=== PATIENT | female | born 1945 | race Caucasian/White ===

== ENCOUNTER → 2018-02-05 15:28 | Outpatient (CLI) | payer MEDICARE, OTHER, SELFPAY ==
[2018-02-05 17:34] LABS: Amphetamine Urine VISTA NEGATIVE (<1000 ng/mL); Barbiturate Urine VISTA NEGATIVE (< 200 ng/mL); Benzodiazepine Urine VISTA NEGATIVE (< 200 ng/mL); Cocaine Urine VISTA NEGATIVE (< 300 ng/mL); Ecstacy Urine VISTA NEGATIVE (< 500 ng/mL); Methadone Urine VISTA NEGATIVE (< 300 ng/mL); PCP Urine VISTA NEGATIVE (< 25 ng/mL); THC Urine VISTA NEGATIVE (< 50 ng/mL); Vista UDS pH Range 6
== END ==
PROVIDERS: Family Provider Internal Medicine; PCP Internal Medicine; Visit Provider Anesthesiology Pain Medicine
DX: F11.20 Opioid dependence, uncomplicated (principal)
CPT/HCPCS: 80307

== ENCOUNTER → 2018-05-06 11:49 | Outpatient (CLI) | payer MEDICARE, OTHER, SELFPAY ==
--- NOTE | 2018-05-06 11:49 | DT_ITS ---
This patient was seen during an EMR downtime May 05, 2018 - May 12, 2018. This patient may have a combination of paper and electronic documentation or all paper documentation. All documentation is viewable within the e-chart portion of [facility] for each patient visit.
--- NOTE | 2018-05-06 12:00 | RAD_ITS ---
STUDY: X-RAY - PELVIS AND LEFT HIP REASON FOR EXAM: Female, 72 years old. Left hip pain TECHNIQUE: Radiological exam, hip, unilateral, with pelvis when performed; 2 or 3 views. COMPARISON: None. FINDINGS: There is a non-specific bowel gas pattern. Normal visualized soft tissue structures. There are atherosclerotic vascular calcifications. Total right hip arthroplasty. Degenerative findings in the lumbar spine. Normal bilateral iliac wings, sacroiliac joints and visualized sacrum. Normal bilateral superior and inferior pubic rami. Normal pubic symphysis. Normal bilateral ischial tuberosities. There are osteoarthritic changes of the femoral head with marginal osteophyte formation. There is osteoarthritic spur formation of the acetabular rim. There is moderate articular joint space narrowing of the hip. RAD/Hip 2-3 Views with Pelvis IMPRESSION: There are osteoarthritic changes of the femoral head with marginal osteophyte formation. Electronically Signed: Nav Gutiérrez MD at 20:49 EDT , Service support ,
== END ==
PROVIDERS: Family Provider Internal Medicine; PCP Internal Medicine; Visit Provider Anesthesiology Pain Medicine
DX: M16.12 Unilateral primary osteoarthritis, left hip (principal)
CPT/HCPCS: 73502

== ENCOUNTER → 2018-05-19 07:18 | Outpatient (CLI) | payer MEDICARE, OTHER, SELFPAY ==
--- NOTE | 2018-05-19 07:42 | MRI_ITS ---
STUDY: MRI LUMBAR SPINE WITHOUT CONTRAST REASON FOR EXAM: Female, 72 years old. Low back pain radiating to both legs TECHNIQUE: Standardized fat and water weighted pulse sequences were obtained in the sagittal and axial planes. COMPARISON: None FINDINGS: T12-L1: Normal endplates. Normal disc height, hydration and morphology. Normal bilateral facet joints. Normal central canal and bilateral lateral recesses. Normal bilateral intervertebral neural foramina. 6 mm of grade 1 L5-S1 anterolisthesis. No underlying pars defects are seen. There is a dextroscoliosis of the lumbar spine. Conus medullaris is low lying, with tip at the L3 level. L1-2: Bulging annulus and bilateral facet hypertrophy with mild left lateral recess stenosis and moderate left and mild right foraminal stenoses. L2-3: Bulging annulus and bilateral facet and ligamentum flavum hypertrophy with facet joint effusions. Mild central canal and moderate left and mild right foraminal stenoses. L3-4: Bulging annulus and bilateral facet and ligamentum flavum hypertrophy with mild bilateral lateral recess stenoses and mild bilateral foraminal stenoses. L4-5: Bulging annulus and bilateral facet and ligamentum flavum hypertrophy with minimal central canal stenosis and mild bilateral foraminal stenoses. L5-S1: Anterolisthesis, bulging annulus, and bilateral facet and ligamentum flavum hypertrophy with bilateral facet joint effusions. Mild bilateral lateral recess stenoses and severe right and moderate left foraminal stenoses. Incidental sacral Tarlov cysts. Normal visualized paraspinous soft tissue structures. MRI/Spine Lumbar (Routine) IMPRESSION: Multilevel degenerative disease as described. Grade 1 L5-S1 anterolisthesis. Low-lying conus medullaris. Severe right foraminal stenosis at the L5-S1 level. Electronically Signed: Eugene Boucher MD at 10:09 EDT Tel , Service support ,
== END ==
PROVIDERS: Family Provider Internal Medicine; PCP Internal Medicine; Visit Provider Anesthesiology Pain Medicine
DX: M48.07 Spinal stenosis, lumbosacral region (principal); M41.86 Other forms of scoliosis, lumbar region
CPT/HCPCS: 72148

== ENCOUNTER → 2018-07-30 16:35 | Outpatient (CLI) | payer MEDICARE, OTHER, SELFPAY | PROVIDERS: Family Provider Internal Medicine; PCP Internal Medicine; Visit Provider Anesthesiology Pain Medicine | DX: M47.896 Other spondylosis, lumbar region (principal); M51.36 Other intervertebral disc degeneration, lumbar region; M48.061 Spinal stenosis, lumbar region without neurogenic claudication | CPT/HCPCS: 72100 ==

== ENCOUNTER 2018-08-02 11:56 | Emergency (ER) | payer MEDICARE, OTHER, SELFPAY ==
[2018-08-02 11:56] VITALS: BP 173/91; PULSE 69; RESP 18; TEMP 36.6; O2SAT 99; BMI 27.1
[2018-08-02] MEDS: HYDROmorphone 1 MG/ML Syringe IM (12:59)
--- NOTE | 2018-08-02 13:56 | ED.VISSUMM ---
- ER Visit Summary Date of Service: 08/02/18 Chief Complaint: [Back pain and right leg pain] History of Present Illness: The patient is a 72 F [presents the emergency department complaint of pain in her back and going down her right leg that has been there for over 3 weeks. Patient states she scheduled to have hip replacement surgery on August [address] Irene on the left hip. Patient states that she was power washing 3 weeks ago unless to her back. Patient had x-rays earlier this week done as an outpatient of her low back showed some arthritic changes. Patient is currently in pain management and sees Dr. Orta. Patient has been taking ibuprofen at home as well as Vicodin but is just not managing her pain] patient denies any direct trauma. She denies any weakness in extremities. She denies change in bowel or bladder function. Physical Examination: [HEENT-PERRLA, EOMI. Cranial nerves II through XII grossly intact. TMs clear. Mucous membranes moist. No adenopathy. Cardiovascular-regular rate and rhythm without murmur or ectopy Lungs-clear to auscultation, chest wall stable without crepitus or subcu emphysema Abdomen-normoactive bowel sounds, soft, nontender, no rebound or rigidity, no peritoneal signs. Back exam-patient has diffuse tenderness over the lumbar sacral spine and paraspinal musculature. Patient has negative straight leg raises. Deep tendon reflexes are plus out of 4 bilaterally at the patella and Achilles. Patient has normal L5 extension. Normal sensation to light touch. Extremities-intact ?4, normal range of motion, normal pulses, atraumatic] Test Results: [None indicated] Emergency Department Course and Treatment: [Patient had a dose of Dilaudid 1 mg IM given she had good pain relief with that. Patient was offered admission for pain control however she states that she does not want to be admitted and would prefer to go home and follow-up with . I did discuss case with her pain management doctor who asked that we start patient on the Butrans patch.] Treatment Plan: [Butrans patch] Disposition: [Discharged home in stable condition] Impression: [Back pain Sciatica This note was generated with [employer] dictation software. It may contain incorrect words, spelling, and punctuation that were not noted in review of the chart prior to signing ED Disposition - Plan for ED Patient: Chief Complaint: Back Referrals: Destini Bustamante MD [Primary Care Provider] -
--- NOTE | 2018-08-02 13:59 | ED.DEP ---
ED Disposition - Plan for ED Patient: Chief Complaint: Back Instructions: ED Neck Back Pain General, ED Sciatica Prescriptions: Buprenorphine [Butrans 5 Mcg/Hr] 1 ea TD QWEEK #7 patch.tdwk Referrals: Destini Bustamante MD [Primary Care Provider] - Yun Orta MD [STAFF PHYSICIAN] - 3-5 Days
== END 2018-08-02 14:47 | disposition home or self-care (01) ==
LOC: ED 13:06
PROVIDERS: Emergency Provider Emergency Medicine; Family Provider Internal Medicine; PCP Internal Medicine
DX: M54.41 Lumbago with sciatica, right side (principal); G89.29 Other chronic pain; I10 Essential (primary) hypertension; J44.9 Chronic obstructive pulmonary disease, unspecified; Z79.891 Long term (current) use of opiate analgesic; Z79.899 Other long term (current) drug therapy; Z72.0 Tobacco use
CPT/HCPCS: 96372; 99282

== ENCOUNTER 2018-08-03 11:55 | Emergency (ER) | payer MEDICARE, OTHER, SELFPAY ==
[2018-08-03 11:56] VITALS: BP 156/79; PULSE 76; RESP 20; TEMP 37; O2SAT 97; BMI 27.1
[2018-08-03] MEDS: HYDROmorphone 1 MG/ML Syringe IM (12:30)
[2018-08-03] MEDS: Triamcinolone Acetonide 40 MG/ML Vial IM (12:30)
[2018-08-03] MEDS: diazePAM 5 MG Tablet PO (12:30)
--- NOTE | 2018-08-03 13:26 | ED.VISSUMM ---
- ER Visit Summary Date of Service: 08/03/18 Chief Complaint: Back pain History of Present Illness: The patient is a 72 F with chronic recurrent back pain was seen yesterday and received a Butrans patch but it still does not help. She was offered admission but does not want it. She does not want to be admitted again today she just wants her pain relief. There is no new symptoms other than the pain is not getting any better. She is seeing pain management, she receives 3 Vicodin's a day from them. Physical Examination: Otherwise unremarkable exam. Soft and nontender abdomen. There is lumbar pain to palpation. There is some tenderness over the right IT band as well as left hip pain. Neurovascularly intact Emergency Department Course and Treatment: Patient improved with Dilaudid and Valium she wants to be discharged home. I certainly believe her pain but she is in pain management. Because it is Labor and her pain physician is not listed as being economics consultant I will give her a small amount of Valium and hydrocodone for home she is to call her physician first thing Saturday as well as document every time she takes the medication the time and her relief. She understands this. Disposition: Discharge stable condition Impression: Chronic recurrent back pain This note was generated with [employer] dictation software. It may contain incorrect words, spelling, and punctuation that were not noted in review of the chart prior to signing ED Disposition - Plan for ED Patient: Disposition: Home or Assisted Living Chief Complaint: Back Prescriptions: Diazepam [Valium] 5 mg PO Q6H PRN PRN 3 Days #10 tab PRN Reason: Pain Hydromorphone HCl [Dilaudid] 4 mg PO Q6H 3 Days #10 tab Additional Instructions: Call your pain doctor on Saturday to tell them you are on pain medications and the new pain medications that you are taking
[2018-08-03 13:47] VITALS: BP 127/89; PULSE 62; RESP 18; O2SAT 97
--- NOTE | 2018-08-03 13:47 | ED.RN ---
DR. NASH MADE AWARE THAT PATIENT IS IN PAIN MANAGEMENT AND IS OKAY WITH GOING HOME PRESCRIPTIONS. PT STATES SHE WILL CONTACT DR. OLIVEIRA ON SATURDAY TO DISCUSS FURTHER.
== END 2018-08-03 13:48 | disposition home or self-care (01) ==
PROVIDERS: Emergency Provider Emergency Medicine; Family Provider Internal Medicine; PCP Internal Medicine
DX: M54.5 Low back pain (principal); G89.29 Other chronic pain; J44.9 Chronic obstructive pulmonary disease, unspecified; Z79.899 Other long term (current) drug therapy
CPT/HCPCS: 96372; 99282

== ENCOUNTER 2018-08-22 10:45 | Outpatient (RCR) | payer MEDICARE, OTHER, SELFPAY ==
[2018-08-08 10:41] VITALS: BMI 27.1
--- NOTE | 2018-08-08 12:09 | PCM.WC.HP ---
(1) Cat scratch of right lower leg Status: Acute Current Visit: Yes Code(s): S80.811A - Abrasion, right lower leg, initial encounter; W55.03XA - Scratched by cat, initial encounter (2) Nonhealing ulcer of right lower leg Status: Acute Current Visit: Yes Code(s): L97.919 - Non-pressure chronic ulcer of unspecified part of right lower leg with unspecified severity (3) Infected ulcer of skin Status: Acute Current Visit: Yes Code(s): L98.499 - Non-pressure chronic ulcer of skin of other sites with unspecified severity; L08.9 - Local infection of the skin and subcutaneous tissue, unspecified History of Present Illness Date of Service: 08/08/18 Chief Complaint: Follow-up right lower leg ulcer nonhealing for about 3 weeks History of Wound: 72-year-old white female that has indoor outdoor cats. While in the barn of the cat indoor cat scratched her right lower leg. Her doctor put her on metronidazole which she is almost finished and used Bactroban ointment. The area is now scabbed with a darkened scab. A little tender around the edges but no purulent discharge noted. Past Medical History Past Medical History: Nonhealing ulcer right lower leg. Cat scratch of the right lower leg Allergies/Adverse Reactions: Allergies morphine Allergy (Verified 08/03/18 12:00) unknown Penicillins Allergy (Verified 08/03/18 12:00) unknown Home Medications: Ambulatory Orders Medication Instructions Recorded albuterol sulfate HFA 90 2 puff INHALATION Q6H PRN 06/17/18 mcg/actuation aerosol inhaler budesonide-formoterol HFA 160 2 puff INHALATION BID 06/17/18 mcg-4.5 mcg/actuation aerosol inhaler cholecalciferol (vitamin D3) 1,000 1,000 unit PO QDAY 06/17/18 unit capsule hydroxychloroquine 200 mg tablet 200 mg PO QDAY tab 06/17/18 losartan 50 mg tablet 50 mg PO QDAY 06/17/18 omeprazole 40 mg capsule,delayed 40 mg PO QDAY 06/17/18 release tiotropium bromide 2.5 2 puff INHALATION QDAY 06/17/18 mcg/actuation mist for inhalation Buprenorphine [Butrans 5 Mcg/Hr] 1 ea TD QWEEK #7 patch.tdwk 08/02/18 Hydromorphone HCl [Dilaudid] 4 mg PO Q6H 3 Days #10 tab 08/03/18 Hydrocodone/Acetaminophen [[place] 1 each PO TID 08/08/18 5-325 Tablet] Hydroxychloroquine Sulfate 200 mg PO DAILY MDD 1.5 tabs 08/08/18 [Plaquenil] Lives: Spouse/ Significant Other Smoking Status: Current every day smoker Alcohol: None Drugs: None Review of Systems Constitutional: Denies: Chills, Fever Eyes: Denies: Blurred vision, Drainage, Pain HEENT: Denies: Difficulty Hearing, Difficulty Swallowing, Sore Throat, Visual Changes Cardiovascular: Denies: Chest Pain, Palpitations, Syncope Respiratory: Denies: Cough, Shortness of Breath Gastrointestinal: Denies: Abdominal Pain, Nausea, Vomiting Genitourinary: Denies: Dysuria, Frequency Musculoskeletal: Denies: Joint Pain, Muscle pain Skin: Reports: Wounds - Right lower leg ulcer nonhealing from a cat scratch. Denies: Jaundice, Rash Neurological: Denies: Balance problems, Change in Speech, Difficulty swallowing, Focal weakness Psychiatric: Denies: Anxiety, Depression Endocrine: Denies: Change in Body Habitus Hematologic/ Lymphatic: Denies: Adenopathy - Physical Exam General: Oriented x3, Cooperative, Well developed HEENT: Atraumatic, PERRLA Oral: Moist Mucosa Neck: Supple, No JVD Lungs: Clear to auscultation, Normal air movement Cardiovascular: Regular rate, Regular Rhythm Abdomen: Bowel Sounds Present, Soft, Non Tender, No Hepato-splenomegaly Extremities: No clubbing, No edema, - - Lower leg ulcer from a cat scratch traumatic Wound Measurements and Assessment - Nurse 1 - General Ulcer Measurement Start: 08/08/18 10:21 Freq: Status: Active Protocol: Activity Type Activity Date Activity User E-Sign Co-Sign Detail Recorded Client Recorded Date Recorded By Document 08/08/18 10:41 [id number] 08/08/18 10:48 08/08/18 10:41 Wound Center Nurse 1 [Ulcer Assessment] #1 RLE LATERAL ULCER -Combined with other wound No -Current Size (cm) - Length 1.9 -Current Size (cm) - Width 1.4 -Current Size (cm) - Depth 0.1 -Total Square Cm 2.66 -Date of Last Picture (Recall this 08/08/18 field) -Photo Taken Yes -Epithelialization None Present -Exudate Amt None Present (0 %) -Wound Margin Distinct, Outline Attached -Granulation Amt None Present (0 %) -Granulation Quality N/A -Necrotic Tissue Type Eschar -Texture (Fe-wound Skin Appearance) Assessed -Moisture (Fe-wound Skin Appearance Assessed ) -Color (Fe-wound Skin Appearance) Assessed -Temperature (Fe-wound Skin No Abnormality Appearance) (Pt Warm) -Tenderness on Palpation (Fe-wound No Skin Appearance) -Ulcer Cleansing Rinsed/ Irrigated with Saline -Foul Odor after Cleansing No -Anesthetic Used 4% Lidocaine Solution [Edema Assessment] -Lower Limb Edema Present No -Right Calf (cm) 31 -Right Ankle (cm) 21 -Left Calf (cm) 30 -Left Ankle (cm) 21 WC - Nurse 2 - General Ulcer CM Notes Start: 08/08/18 10:21 Freq: Status: Active Protocol: Activity Type Activity Date Activity User E-Sign Co-Sign Detail Recorded Client Recorded Date Recorded By Document 08/08/18 11:06 MW [id number] 08/08/18 11:13 MW 08/08/18 11:06 Wound Center Nurse 2 [Procedure/Treatment] #1 RLE LATERAL ULCER -Time 11:06 -Correct Patient Yes -Correct Side, Site, Position Yes -Correct Procedure Yes -Procedure Performed Yes -Type of Procedure Debridement -Clinical Debridement Subcutaneous -Post Debridement Size (cm) - Length 2.0 -Post Debridement Size (cm) - Width 1.4 -Post Debridement Size (cm) - Depth 0.2 -Total Square Cm 2.80 -Wound/Ulcer Outcome Not Healed -Ulcer Cleansing Rinsed/ Irrigated with Saline -Foul Odor after Cleansing No -Bioengineered Tissue No -Bleeding Controlled with Pressure -Treatment Response Procedure Tolerated Well [See Physician Procedure note for Specifics] Pain Scale: 0-10 Numeric [Pain] -Is Patient Pain Free? Yes Musculoskeletal: No Tenderness to Palpation of Joints or Extremities Lymphatic: No Cervical, Supraclavicular, or Inguinal Adenopathy Neurological: Cranial nerves II-XII grossly intact, Neuro grossly intact Psych/Mental Status: Normal Affect, Appropriate Debridement Note Post-Debridement Measurements/Treatment WC - Nurse 2 - General Ulcer CM Notes Start: 08/08/18 10:21 Freq: Status: Active Protocol: Activity Type Activity Date Activity User E-Sign Co-Sign Detail Recorded Client Recorded Date Recorded By Document 08/08/18 11:06 MW [id number] 08/08/18 11:13 MW 08/08/18 11:06 Wound Center Nurse 2 #1 RLE LATERAL ULCER -Time 11:06 -Correct Patient Yes -Correct Side, Site, Position Yes -Correct Procedure Yes -Procedure Performed Yes -Type of Procedure Debridement -Clinical Debridement Subcutaneous -Post Debridement Size (cm) - Length 2.0 -Post Debridement Size (cm) - Width 1.4 -Post Debridement Size (cm) - Depth 0.2 -Total Square Cm 2.80 -Wound/Ulcer Outcome Not Healed -Ulcer Cleansing Rinsed/ Irrigated with Saline -Foul Odor after Cleansing No -Bioengineered Tissue No -Bleeding Controlled with Pressure -Treatment Response Procedure Tolerated Well Pain Scale: 0-10 Numeric Is Patient Pain Free? Yes Wound debrided: Lower leg ulcer Type of Debridement: Excisional debridement Anesthesia Used: 5% Lidocaine Gel Depth: Down to and including healthy tissue, in the subcutaneous layer, to muscle Percentage of wound debrided: 100 Instrument Used: 5mm curette Tissue Removed: Eschar and fibrin Amount of bleeding with debridement: Mild Bleeding Controlled with: Compression and gauze Patient tolerated procedure well Assessment/Plan Active Problems Cat scratch of right lower leg (Acute) Nonhealing ulcer of right lower leg (Acute) Infected ulcer of skin (Acute) Assessment: Cat scratched right lower leg. Nonhealing ulcer right lower leg. Infected ulcer right lower leg Plan: Leg with Hibiclens. Apply Promogran every other day cover with Adaptic and gauze dressing Abisai and a single layer Tubigrip. Follow-up in 1 week
[2018-08-15 10:40] VITALS: BP 143/62; PULSE 73; RESP 18; TEMP 36.1; BMI 27.1
[2018-08-22 10:53] VITALS: BP 147/89; PULSE 81; RESP 18; TEMP 36.8; BMI 27.1
--- NOTE | 2018-08-22 12:38 | PCM.WC.PN ---
(1) Cat scratch of right lower leg Status: Acute Current Visit: Yes Code(s): S80.811A - Abrasion, right lower leg, initial encounter; W55.03XA - Scratched by cat, initial encounter (2) Infected puncture wound Status: Acute Current Visit: Yes Code(s): T14.8XXA - Other injury of unspecified body region, initial encounter; L08.9 - Local infection of the skin and subcutaneous tissue, unspecified (3) Nonhealing nonsurgical wound Status: Acute Current Visit: Yes Code(s): T14.8XXA - Other injury of unspecified body region, initial encounter Type of Wound Date of Service: 08/22/18 Chief Complaint: Follow-up right lower leg wound nonhealing for about 3 weeks History of Wound: 72-year-old white female that has indoor outdoor cats. While in the barn of the cat indoor cat scratched her right lower leg. Her doctor put her on metronidazole which she is almost finished and used Bactroban ointment. The area is now scabbed with a darkened scab. A little tender around the edges but no purulent discharge noted. Progress of Wound: Today the wound is much improved still open about half the size it was last week. Patient is scheduled for hip surgery this coming Saturday so we will see her back in 3 weeks. He is using Promogran which is appears to be developing new cell growth you can see new cells growing possibly she could be healed up by the time she comes back. - Physical Exam Vital Signs Temp Pulse Resp BP 98.2 F 81 18 147/89 H 08/22/18 10:53 08/22/18 10:53 08/22/18 10:53 08/22/18 10:53 General: Oriented x3, Cooperative, Well developed HEENT: Atraumatic, PERRLA Oral: Moist Mucosa Neck: Supple, No JVD Lungs: Clear to auscultation, Normal air movement Cardiovascular: Regular rate, Regular Rhythm Abdomen: Bowel Sounds Present, Soft, Non Tender, No Hepato-splenomegaly Extremities: No clubbing, No edema Skin: Ulcer/ Wound - Right lateral wound Wound Measurements and Assessment WC - Nurse 1 - General Ulcer Measurement Start: 08/08/18 10:21 Freq: Status: Active Protocol: Activity Type Activity Date Activity User E-Sign Co-Sign Detail Recorded Client Recorded Date Recorded By Document 08/22/18 10:53 [id number] 08/22/18 10:55 CS 08/22/18 10:53 Wound Center Nurse 1 [Ulcer Assessment] #1 RLE LATERAL ULCER -Combined with other wound No -Current Size (cm) - Length 1.5 -Current Size (cm) - Width 1.1 -Current Size (cm) - Depth 0.1 -Total Square Cm 1.65 -Photo Taken No -Tunneling No -Undermining/Tunneling No -Circular Undermining No -Exudate Amt Small (1-33%) -Exudate Type Serosanguineous -Wound Margin Distinct, Outline Attached -Granulation Quality [place] Red -Slough/Fibrin Yes -Necrosis Amt Medium (34-66%) -Necrotic Tissue Type Adherent Slough -Structure Exposed None/Limited to Skin Breakdown -Texture (Fe-wound Skin Appearance) Assessed Scarring -Moisture (Fe-wound Skin Appearance No Abnormality ) Assessed -Color (Fe-wound Skin Appearance) No Abnormality Assessed -Temperature (Ef-wound Skin No Abnormality Appearance) (Pt Warm) -Tenderness on Palpation (Fe-wound No Skin Appearance) -Ulcer Cleansing Rinsed/ Irrigated with Saline -Foul Odor after Cleansing No -Anesthetic Used 5% Lidocaine Gel [Edema Assessment] -Lower Limb Edema Present No -Left Calf (cm) 30.5 -Left Ankle (cm) 20.3 WC - Nurse 2 - General Ulcer CM Notes Start: 08/08/18 10:21 Freq: Status: Active Protocol: Activity Type Activity Date Activity User E-Sign Co-Sign Detail Recorded Client Recorded Date Recorded By Document 08/22/18 11:07 MW [id number] 08/22/18 11:09 MW 08/22/18 11:07 Wound Center Nurse 2 [Procedure/Treatment] #1 RLE LATERAL ULCER -Time 11:07 -Correct Patient Yes -Correct Side, Site, Position Yes -Correct Procedure Yes -Procedure Performed Yes -Type of Procedure Debridement -Clinical Debridement Subcutaneous -Post Debridement Size (cm) - Length 0.9 -Post Debridement Size (cm) - Width 0.8 -Post Debridement Size (cm) - Depth 0.1 -Total Square Cm 0.72 -Wound/Ulcer Outcome Not Healed -Ulcer Cleansing Rinsed/ Irrigated with Saline -Foul Odor after Cleansing No -Bioengineered Tissue No -Bleeding Controlled with Pressure -Treatment Response Procedure Tolerated Well [See Physician Procedure note for Specifics] Pain Scale: 0-10 Numeric [Pain] -Is Patient Pain Free? Yes Musculoskeletal: No Tenderness to Palpation of Joints or Extremities Lymphatic: No Cervical, Supraclavicular, or Inguinal Adenopathy Neurological: Cranial nerves II-XII grossly intact, Neuro grossly intact Psych/Mental Status: Normal Affect, Appropriate Debridement Note Post-Debridement Measurements/Treatment WC - Nurse 2 - General Ulcer CM Notes Start: 08/08/18 10:21 Freq: Status: Active Protocol: Activity Type Activity Date Activity User E-Sign Co-Sign Detail Recorded Client Recorded Date Recorded By Document 08/08/18 11:06 MW [id number] 08/08/18 11:13 MW Document 08/15/18 10:58 MW [id number] 08/15/18 10:59 MW Document 08/22/18 11:07 MW [id number] 08/22/18 11:09 MW 08/08/18 08/15/18 08/22/18 11:06 10:58 11:07 Wound Center Nurse 2 #1 RLE LATERAL ULCER -Time 11:06 10:58 11:07 -Correct Patient Yes Yes Yes -Correct Side, Site, Position Yes Yes Yes -Correct Procedure Yes Yes Yes -Procedure Performed Yes Yes Yes -Type of Procedure Debridement Debridement Debridement -Clinical Debridement Subcutaneous Subcutaneous Subcutaneous -Post Debridement Size (cm) - Length 2.0 1.9 0.9 -Post Debridement Size (cm) - Width 1.4 1.1 0.8 -Post Debridement Size (cm) - Depth 0.2 0.2 0.1 -Total Square Cm 2.80 2.09 0.72 -Wound/Ulcer Outcome Not Healed Not Healed Not Healed -Ulcer Cleansing Rinsed/ Rinsed/ Rinsed/ Irrigated with Irrigated with Irrigated with Saline Saline Saline -Foul Odor after Cleansing No No No -Bioengineered Tissue No No No -Bleeding Controlled with Pressure Pressure Pressure -Treatment Response Procedure Procedure Procedure Tolerated Well Tolerated Well Tolerated Well Pain Scale: 0-10 Numeric Is Patient Pain Free? Yes Yes Yes Wound debrided: Right lateral wound Type of Debridement: Excisional debridement Anesthesia Used: 5% Lidocaine Gel Percentage of wound debrided: 100 Instrument Used: 5mm curette Tissue Removed: Fibrin Severity: Limited To Skin Breakdown Amount of bleeding with debridement: Mild Bleeding Controlled with: Compression and gauze Patient tolerated procedure well Assessment/Plan Active Problems Cat scratch of right lower leg (Acute) Infected puncture wound (Acute) Nonhealing nonsurgical wound (Acute) Assessment: Cat scratched right lower leg. Nonhealing ulcer right lower leg. Infected ulcer right lower leg Plan: Leg with Hibiclens. Apply Promogran every other day cover with Adaptic and gauze dressing Abisai and a single layer Tubigrip. Follow-up in 3 week
--- NOTE | 2018-08-22 12:42 | PN.PCM_ITS ---
(1) Cat scratch of right lower leg Status: Acute Current Visit: Yes Code(s): S80.811A - Abrasion, right lower leg, initial encounter; W55.03XA - Scratched by cat, initial encounter (2) Infected puncture wound Status: Acute Current Visit: Yes Code(s): T14.8XXA - Other injury of unspecified body region, initial encounter; L08.9 - Local infection of the skin and subcutaneous tissue, unspecified (3) Nonhealing nonsurgical wound Status: Acute Current Visit: Yes Code(s): T14.8XXA - Other injury of unspecified body region, initial encounter Type of Wound Date of Service: 08/22/18 Chief Complaint: Follow-up right lower leg wound nonhealing for about 3 weeks History of Wound: 72-year-old white female that has indoor outdoor cats. While in the barn of the cat indoor cat scratched her right lower leg. Her doctor put her on metronidazole which she is almost finished and used Bactroban ointment. The area is now scabbed with a darkened scab. A little tender around the edges but no purulent discharge noted. Progress of Wound: Today the wound is much improved still open about half the size it was last week. Patient is scheduled for hip surgery this coming Saturday so we will see her back in 3 weeks. He is using Promogran which is appears to be developing new cell growth you can see new cells growing possibly she could be healed up by the time she comes back. - Physical Exam Vital Signs Temp Pulse Resp BP 98.2 F 81 18 147/89 H 08/22/18 10:53 08/22/18 10:53 08/22/18 10:53 08/22/18 10:53 General: Oriented x3, Cooperative, Well developed HEENT: Atraumatic, PERRLA Oral: Moist Mucosa Neck: Supple, No JVD Lungs: Clear to auscultation, Normal air movement Cardiovascular: Regular rate, Regular Rhythm Abdomen: Bowel Sounds Present, Soft, Non Tender, No Hepato-splenomegaly Extremities: No clubbing, No edema Skin: Ulcer/ Wound - Right lateral wound Wound Measurements and Assessment WC - Nurse 1 - General Ulcer Measurement Start: 08/08/18 10:21 Freq: Status: Active Protocol: Activity Type Activity Date Activity User E-Sign Co-Sign Detail Recorded Client Recorded Date Recorded By Document 08/22/18 10:53 [id number] 08/22/18 10:55 CS 08/22/18 10:53 Wound Center Nurse 1 [Ulcer Assessment] #1 RLE LATERAL ULCER -Combined with other wound No -Current Size (cm) - Length 1.5 -Current Size (cm) - Width 1.1 -Current Size (cm) - Depth 0.1 -Total Square Cm 1.65 -Photo Taken No -Tunneling No -Undermining/Tunneling No -Circular Undermining No -Exudate Amt Small (1-33%) -Exudate Type Serosanguineous -Wound Margin Distinct, Outline Attached -Granulation Quality [place] Red -Slough/Fibrin Yes -Necrosis Amt Medium (34-66%) -Necrotic Tissue Type Adherent Slough -Structure Exposed None/Limited to Skin Breakdown -Texture (Ef-wound Skin Appearance) Assessed Scarring -Moisture (Fe-wound Skin Appearance No Abnormality ) Assessed -Color (Fe-wound Skin Appearance) No Abnormality Assessed -Temperature (Fe-wound Skin No Abnormality Appearance) (Pt Warm) -Tenderness on Palpation (Fe-wound No Skin Appearance) -Ulcer Cleansing Rinsed/ Irrigated with Saline -Foul Odor after Cleansing No -Anesthetic Used 5% Lidocaine Gel [Edema Assessment] -Lower Limb Edema Present No -Left Calf (cm) 30.5 -Left Ankle (cm) 20.3 WC - Nurse 2 - General Ulcer CM Notes Start: 08/08/18 10:21 Freq: Status: Active Protocol: Activity Type Activity Date Activity User E-Sign Co-Sign Detail Recorded Client Recorded Date Recorded By Document 08/22/18 11:07 MW [id number] 08/22/18 11:09 MW 08/22/18 11:07 Wound Center Nurse 2 [Procedure/Treatment] #1 RLE LATERAL ULCER -Time 11:07 -Correct Patient Yes -Correct Side, Site, Position Yes -Correct Procedure Yes -Procedure Performed Yes -Type of Procedure Debridement -Clinical Debridement Subcutaneous -Post Debridement Size (cm) - Length 0.9 -Post Debridement Size (cm) - Width 0.8 -Post Debridement Size (cm) - Depth 0.1 -Total Square Cm 0.72 -Wound/Ulcer Outcome Not Healed -Ulcer Cleansing Rinsed/ Irrigated with Saline -Foul Odor after Cleansing No -Bioengineered Tissue No -Bleeding Controlled with Pressure -Treatment Response Procedure Tolerated Well [See Physician Procedure note for Specifics] Pain Scale: 0-10 Numeric [Pain] -Is Patient Pain Free? Yes Musculoskeletal: No Tenderness to Palpation of Joints or Extremities Lymphatic: No Cervical, Supraclavicular, or Inguinal Adenopathy Neurological: Cranial nerves II-XII grossly intact, Neuro grossly intact Psych/Mental Status: Normal Affect, Appropriate Debridement Note Post-Debridement Measurements/Treatment WC - Nurse 2 - General Ulcer CM Notes Start: 08/08/18 10:21 Freq: Status: Active Protocol: Activity Type Activity Date Activity User E-Sign Co-Sign Detail Recorded Client Recorded Date Recorded By Document 08/08/18 11:06 MW [id number] 08/08/18 11:13 MW Document 08/15/18 10:58 MW [id number] 08/15/18 10:59 MW Document 08/22/18 11:07 MW [id number] 08/22/18 11:09 MW 08/08/18 08/15/18 08/22/18 11:06 10:58 11:07 Wound Center Nurse 2 #1 RLE LATERAL ULCER -Time 11:06 10:58 11:07 -Correct Patient Yes Yes Yes -Correct Side, Site, Position Yes Yes Yes -Correct Procedure Yes Yes Yes -Procedure Performed Yes Yes Yes -Type of Procedure Debridement Debridement Debridement -Clinical Debridement Subcutaneous Subcutaneous Subcutaneous -Post Debridement Size (cm) - Length 2.0 1.9 0.9 -Post Debridement Size (cm) - Width 1.4 1.1 0.8 -Post Debridement Size (cm) - Depth 0.2 0.2 0.1 -Total Square Cm 2.80 2.09 0.72 -Wound/Ulcer Outcome Not Healed Not Healed Not Healed -Ulcer Cleansing Rinsed/ Rinsed/ Rinsed/ Irrigated with Irrigated with Irrigated with Saline Saline Saline -Foul Odor after Cleansing No No No -Bioengineered Tissue No No No -Bleeding Controlled with Pressure Pressure Pressure -Treatment Response Procedure Procedure Procedure Tolerated Well Tolerated Well Tolerated Well Pain Scale: 0-10 Numeric Is Patient Pain Free? Yes Yes Yes Wound debrided: Right lateral wound Type of Debridement: Excisional debridement Anesthesia Used: 5% Lidocaine Gel Percentage of wound debrided: 100 Instrument Used: 5mm curette Tissue Removed: Fibrin Severity: Limited To Skin Breakdown Amount of bleeding with debridement: Mild Bleeding Controlled with: Compression and gauze Patient tolerated procedure well Assessment/Plan Active Problems Cat scratch of right lower leg (Acute) Infected puncture wound (Acute) Nonhealing nonsurgical wound (Acute) Assessment: Cat scratched right lower leg. Nonhealing ulcer right lower leg. Infected ulcer right lower leg Plan: Leg with Hibiclens. Apply Promogran every other day cover with Adaptic and gauze dressing Abisai and a single layer Tubigrip. Follow-up in 3 week
== END 2018-08-31 23:59 ==
LOC: WC 10:45
PROVIDERS: Family Provider Internal Medicine; PCP Internal Medicine; Visit Provider Nurse Practitioner
DX: S80.811A Abrasion, right lower leg, initial encounter (principal); W55.03XA Scratched by cat, initial encounter; Z79.899 Other long term (current) drug therapy; F17.200 Nicotine dependence, unspecified, uncomplicated
CPT/HCPCS: 11042; 87070; 87075; 87205; 99203; G0463

== ENCOUNTER 2018-08-27 06:36 | Inpatient (IN) | payer MEDICARE, OTHER, SELFPAY ==
[2018-08-15 15:15] VITALS: BP 107/67; PULSE 74; RESP 17; TEMP 36.8; O2SAT 98; BMI 27.3
--- NOTE | 2018-08-15 15:45 | SDCEKG_ITS ---
Test Reason : Blood Pressure : / mmHG Vent. Rate : 075 BPM Atrial Rate : 075 BPM P-R Int : 180 ms QRS Dur : 098 ms QT Int : 376 ms P-R-T Axes : 081 022 060 degrees QTc Int : 419 ms Normal sinus rhythm ST abnormality, possible digitalis effect Abnormal ECG Confirmed by DENNIS FIGUEROA, PELON ([id number]), purchasing expeditor ANISHA DEVLIN ([id number]) on 08/18/2018 2:39:43 PM Referred By: Wolf Irene Confirmed By:PELON COLLINS MD
[2018-08-15 17:07] LABS: Absolute Lymphocyte Count 5.07 X10^3/ul (0.83-4.51); Absolute Neutrophil Count 4.9 X10^3/uL (2.0-7.7); Basophil# 0.04 X10^3/uL; Basophil% 0.4 % (0-1); Eosinophil# 0.35 X10^3/uL; Eosinophils% 3.2 % (0-5); Hematocrit 40.3 % (37-47); Hemoglobin 13.1 g/dl (12.0-15.0); Lymphocyte # 5.07 X10^3/ul (4.0); Lymphocyte % 46.4 % (19-41); Mean Corp Hgb Conc 32.5 g/gl (32-36); Mean Corpuscular Hgb 29.4 pg (27.0-32.0); Mean Corpuscular Volume 90.4 fL (81-99); Mean Platelet Vol. 10.1 fl (6.2-12.0); Monocyte# 0.54 X10^3/uL; Monocyte% 4.9 % (0-10); Neutrophil # 4.91 X10^3/uL (2.7-7.7); Platelet Count 264 K/mm3 (150-450); RBC Distribution Width CV 14.2 % (11.6-14.6); RBC Distribution Width SD 46.9 fl (35.1-43.9); Red Blood Count 4.46 M/mm3 (4.2-5.4); White Blood Count 10.9 K/mm3 (4.4-11.0)
[2018-08-15 17:13] LABS: Prothrombin Time (Protime)PT. 12.9 SECONDS (11.7-14.9)
[2018-08-15 17:14] LABS: Partial Thromboplast Time 22.8 Seconds (24.1-36.2)
[2018-08-15 17:29] LABS: AST(SGOT) 11 U/L (15-37); Alanine Aminotransfer ALT/SGPT 21 U/L (13-56); Albumin, Serum 3.4 g/dL (3.2-5.0); Alkaline Phosphatase 119 U/L (45-117); Anion Gap 9 (5-15); BUN 15 mg/dL (7-18); BUN/Creat Ratio 23.1 RATIO (10-20); Calcium,Total 8.6 mg/dL (8.5-10.1); Chloride 108 mmol/L (98-107); Creatinine, Serum 0.65 mg/dL (0.55-1.02); EST Glomerular Filtration Rate 96 mL/min (>60); Est Glom Filt Rate - Afr Amer 116 mL/min (>60); Globulin 3.3 g/dL (2.2-4.2); Glucose 113 mg/dL (74-106); Potassium 3.5 mmol/L (3.5-5.1); Protein, Total 6.7 g/dL (6.4-8.2); Sodium Level 142 mmol/L (136-145)
[2018-08-15 18:04] LABS: Differential Indicated SCAN CRITERIA MET; POSITIVE COUNT NO; POSITIVE DIFFERENTIAL NO; POSITIVE MORPHOLOGY YES
--- NOTE | 2018-08-15 22:27 | HP.PCM_ITS ---
History and Physical DATE OF SURGERY: 08/27/2018 SCHEDULED PROCEDURE: Direct anterior left total hip replacement HISTORY OF PRESENT ILLNESS: This is a 72-year-old female who has been having ongoing pain in her left hip for approximately 3 years. Patient states her pain as being constant, aching, sharp, stabbing, and sore. She has increased pain going up and down stairs, driving, sitting for extended periods of time, and doing barn chores. Patient has difficult time with activities of daily living including housework, shopping , and leisure activities such as walking. Patient feels unsafe doing barn chores and carrying for the animals. Patient does complain of startup pain. She has pain in the left groin that radiates down the leg. Patient has tried conservative measures consisting of rest, heat, cortisone injection with minimal relief in symptoms. She has tried physical therapy and home exercises with no relief in symptoms. Patient has been on oral medications consisting of Advil, [place], and tramadol with minimal relief. Patient denies previous surgery on her left hip. She has been using a cane for the past 2 months. Patient does have a history of a right total hip replacement in 2014. Patient has medical history pertinent for hypertension, sleep apnea, lupus, chronic obstructive pulmonary disease. Patient sees a oliving machine operator in which she uses Plaquenil. Patient also has been in pain management with Dr. Orta for hip pain and low back pain. She also sees Dr. Napier and her funeral director's assistant for her COPD. We are obtaining surgical clearance from patient's primary care physician Dr. Bustamante. Patient currently denies any chest pain, shortness of breath, fevers chills, or recent infections. After failing conservative measures and discussing all treatment options with Dr. Wolf Irene the patient does wish to proceed with a left total hip arthroplasty. REVIEW OF SYSTEMS: ROS: Const: Reports weight change, but denies change in appetite and fever. CV: Reports heart murmur, but denies chest pain and irregular heartbeat. Resp: Reports pneumonia and shortness of breath, but denies cough, tuberculosis and wheezing. GI: Reports constipation, diarrhea and heartburn, but denies nausea, rectal itching, bloody stools and vomiting. : Denies incontinence. Musculo: Denies leg swelling and trouble walking. Skin: Denies Raynaud's, history of shingles and tattoo. Neuro: Reports numbness/tingling but denies ambulatory dysfunction, dizziness and tremor. Psych: Reports insomnia, but denies anxiety and stress. Jonn/Lymph: Reports long term care administrator anticoagulant use and excessive exposure to x-rays , but denies anemia, bleeding/bruising tendency and past transfusion. Reviewed, no changes. PAST MEDICAL HISTORY: Advance Care Plan: Other Directive, POA Effective Date: 07/14/2018 Other Directive, LIVING WILL Effective Date: 07/14/2018 PMH: Medical Problems: Arthritis, High Blood Pressure, Kidney Stones, Osteoporosis, Sleep Apnea, Lupus , Chornic Obstructive Pulmonary Disease (COPD) Accidents: Fracture - RIBS, LEGS & HEELS Surgical Hx: Appendectomy, Gallbladder Hernia Repair - (2003) Hysterectomy - (1971) Kidney Stones - (1997) RT THR - (2014) Anesthesia Complications: None Assistive Devices: Glasses Reviewed and updated. 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 Personal Habits: Cigarette Use: Light tobacco smoker (10 or fewer cigarettes/ day).Smokeless Tobacco: Never Used Smokeless Tobacco.Alcohol: Weekly use.Drug Use: Denies Use.Enjoy Exercising: Never Exercises. Reviewed, no changes. VITALS: Ht: 63.5 Wt: 152lb Wt [id number] BMI: 26.5 BP: 118/64 Pulse: 70 Resp: 16 T: 98.3 T: 36.8C ALLERGIES: Morphine Penicillin MEDICATIONS: Spiriva Handihaler 18 mcg 1po qday, Symbicort 160-4.5 mcg/Act every 12 hours, Proair HFA 108 (90 Base) mcg/Act prn, Cozaar 50 mg 1po qday, Tramadol HCL 50 mg 1-2 by mouth every 6 hours as needed pain, Omeprazole 20 mg 1po bid, Plaquenil 200 mg 1po bid, Excedrin Migraine 250-250-65 mg prn, Vitamin D3 Ultra Potency 08424 Unit weekly, Advil 200 mg prn, [place] 5-325 mg 1-2 by mouth every 6 hour as needed pain PRE-OP EXAM: General appearance:NORMAL Other: Eyes: Conjunctivae and lids: NORMAL Pupils: ERR Ears, Nose, Mouth, and Throat: NORMAL Other: Inspection of lips, teeth and gums: NORMAL Other: Neck: Examination of neck: no masses noted. Respiratory: Assessment of respiratory effort: NORMAL Other: Auscultation of lungs: clear to auscultation no wheezes, rhonchi or rales. Cardiovascular: Auscultation of heart: regular rate and rhythm, no murmurs, gallops or rubs. Exam of carotid arteries: NORMAL Other: Gastrointestinal: Exam of abdomen: soft, nontender, nondistended bowel sounds present. PHYSICAL EXAMINATION: Patient does walk with an antalgic gait. Patient has increased pain with range of motion of the left hip. Patient has a 20 hip flexion contracture. Flexion to 95, internal rotation to neutral, external rotation to 15. She has decreased strength with the left hip. Sensation intact to light touch. IMAGING STUDIES: X-rays of the left hip were obtained at [facility] on August 15, 2018 including 2 views AP pelvis and AP left hip reveals joint space narrowing, subchondral sclerosis, and osteophyte formation consistent with severe osteoarthritis of the left hip. IMPRESSION: 1. Severe left hip osteoarthritis 2. Hypertension 3. Sleep apnea 4. Lupus 5. Chronic obstructive pulmonary disease 6. History of kidney stones 7. Osteoporosis 8. Chronic low back pain PLAN: Dr. Irene did discuss and review with the patient all treatment options including surgical versus nonsurgical options. Patient does wish to proceed with the above-stated procedure. Potential risks, benefits, and complications of the procedure were discussed in detail including but not limited to , infection, nerve and blood vessel damage, persistent pain, numbness, tingling, paresthesias, blood clot, pulmonary embolism, and requirement for possible further surgery. The patient expressed full understanding and has no further questions for the doctor. Patient does agree to proceed with the above-stated procedure and has signed the surgery consent form. ___ I have re-examined the patient. There are no clinical changes since date of exam. ___ See progress notes for changes. ___ Dictated on admission Date: Time: Signature:
--- NOTE | 2018-08-22 12:42 | CASEMGMT ---
Call placed to patient regarding discharge needs after upcoming surgery. Patient plans to return home with assistance from daughter. Patient has outpatient physical therapy set up at [facility], daughter or will assist with transportation. Patient reports that she heard about a place near [place] that does therapy and may want to switch to them. Patient has a walker and is planning to purchase a shower chair and toilet riser. Patient has 5 steps onto deck in front of house but has a ramp on the back of the house onto a porch and may use the ramp to get into the home. Patient reports she has a bedroom and bathroom on the first level of the home. Informed patient that RN-CM will likely follow up during hospital stay. Elizabeth Ruvalcaba LPN Clinical Support
[2018-08-27] VITALS (19 sets, daily range): BP systolic 127–205; BP diastolic 46–99; PULSE 66–82; RESP 14–18; TEMP 36.2–36.9; O2SAT 93–99; BMI 27.3
--- NOTE | 2018-08-27 06:54 | RAD_ITS ---
STUDY: X-RAY - PELVIS AND LEFT HIP REASON FOR EXAM: Female, 72 years old. Postop hip replacement. TECHNIQUE: Radiological exam, hip, unilateral, with pelvis when performed; 2 or 3 views. COMPARISON: None. FINDINGS: There is a non-specific bowel gas pattern. Normal visualized soft tissue structures. There are bilateral total hip arthroplasties. Both are in satisfactory position and with no evidence for acute complication. Peritoneal coils are seen related to previous left inguinal hernia repair. RAD/Hip Min 2 Views (Portable) IMPRESSION: Satisfactory appearance of bilateral hip arthroplasties. Electronically Signed: Phillip Estevez MD at 12:26 EDT , Service support ,
--- NOTE | 2018-08-27 06:57 | PCM.OPRPT ---
Report of Operation Date of Procedure: 08/27/18 Pre-Operative Diagnosis: Left hip primary osteoarthritis Post-Operative Diagnosis: Left hip primary osteoarthritis Surgery/Procedure Performed:: Left total hip replacement, direct anterior approach Description of Surgical Findings:: Stable hip with equal leg lengths network internship: Tmaara Rowland Type of Anesthesia:: Spinal Anesthesiologist: Mani Lubin Special Medications: 600 mg clindamycin, 1 g TXA at incision, 1 g TXA closure, 10 mg Decadron, joint cocktail (5 mg Duramorph, 30 mL of 0.5% Ropivicaine, 1000 units of epinephrine, 30 mg of Toradol) Specimen's removed: Bony cuts Estimated Blood Loss (mL): 150 Fluids Replaced: 1500 mL crystalloid Description of Procedure: Components used: 1. Accolade 2 [place] femoral stem size 7 127? 2. [place] trident 2 acetabular shell size 52 mm 3. [place] X3 polyethylene E 4. Adrian Biolox delta 36mm, -5mm femoral head Brief history operative indications: 72 yo f who failed conservative measures for their hip osteoarthritis. X-rays were consistent with osteoarthritis including joint space narrowing, osteophyte formation and subchondral cysts. Total hip replacement was discussed with the patient with risks and benefits including but not limited to blood loss, DVTs, PEs, neurovascular damage, dislocation, general risks of anesthesia including loss of life. Patient demonstrated an understanding medical clearance is obtained the patient was consented for surgery. Procedure: On the date of procedure the patient's L hip was marked in the preoperative area. Patient was then taken back to the operating room where anesthesia assumed control of the C-spine and airway and administered anesthetic. Patient was transferred to the operating table and placed in the supine position. The hips were placed at the break of the bed and a sacral bump was placed. The L lower extremity was then prepped out in a sterile fashion using chlorhexidine while the surgeon scrubbed. The PA was vital in the positioning of the patient. Upon reentering the room the L lower extremity was draped in the standard orthopedic fashion and the incision was marked. A timeout was called and everyone agreed upon the side, the site, the procedure be performed, antibody given, and patient's identity. At this time incision was made through skin, subcutaneous tissue, and fat down to fascia. The fascia was then incised and the TFL was retracted laterally. A retractor was placed on the lateral border of the femoral neck. Attention was directed to the inferior portion of the approach and all crossing vessels were identified and appropriately coagulated. A retractor was then placed on the medial portion of the femoral neck. The anterior capsule was then cleared of all soft tissue and then H shaped capsulotomy was made. The retractors were then placed inside the capsule. The femoral neck was identified and a cleanup cut was made. At this time a power corkscrew was used to remove the femoral head. Attention was then turned toward the acetabulum where the soft tissues were appropriately retracted and the acetabulum was sequentially reamed to 60 mm. A 60 mm cup was then selected and impacted into place. Acetabular liner was impacted into place and locking mechanism was verified. The position of the acetabular cup was then verified under live fluoroscopy. Attention was then turned to the femur. Soft tissue releases on the medial and lateral femoral neck were appropriately done, the leg was externally rotated and lateralized. A Demarco retractor was placed medially and proximally to the greater trochanter this allowed appropriate visualization and exposure of the femoral canal. Rongeour was then used to remove excess lateral bone. A canal finder and entry broach were used to open the proximal canal. Once we verified we were down the femoral canal we subsequently broached up to a size 7 femur. The appropriate neck was placed in the previously selected head was trialed with a -5 mm neck. Traction was pulled and the hip was reduced with internal rotation. Once it was appropriately reduced and stability was checked. There was minimal shuck, equal leg lengths and appropriate stability with hyperextension and external rotation as well as with 90? flexion and internal rotation. Fluoroscopy was then also used to verify the position of the components and leg lengths using the contralateral side for comparison. The trial components were then dislocated the proximal femur was again exposed and the components were removed from the wound. The final components were verified and opened. The wound was copiously irrigated out with normal saline. The acetabulum was checked for any residual debris. The final components were placed and impacted. Traction and internal rotation were again used to reduce the hip. After adequate reduction the hip remained stable with appropriate leg lengths. The final components were once again checked with live fluoroscopy and were found to be satisfactory. The wound was then copiously irrigated with normal saline once more, and hemostasis was obtained. Closure was then done using #1 Vicryl runner to close the fascia. A 2-0 vicryl interuppted sutures were used to close the subcutaneous skin. A 3-0 Monocryl and Steri-Strips were used for final skin closure. A Silverlon dressing was placed. Patient was awakened by anesthesia and transferred to the [facility]. Patient was then transferred to the PACU for recovery. Postoperative plan: Patient will get 24 hours postop antibiotics. Patient will get in-house physical therapy and will be weight-bear as tolerated. Patient will follow up in office in 2 weeks for a wound check and x-rays. Grafts/Implants Used: Adrian Accolade 2 - Complications NONE - Admit VTE Documentation VTE Present on Admission: No VTE Mechan Device Prophylaxis: SCD's, Thigh High SUZY Hose VTE Pharm Prophylaxis ordered?: Yes
[2018-08-27] MEDS: oxyCODONE HCl Cr 10 MG Tablet PO (07:17)
[2018-08-27] MEDS: Acetaminophen 500 MG Tablet 1000 MG PO ×3 (07:17→22:57)
[2018-08-27] MEDS: Celecoxib 200 MG Capsule 400 MG PO (07:17)
[2018-08-27] MEDS: Lactated Ringers 1,000 ML 999 ML IV (07:50)
--- NOTE | 2018-08-27 09:18 | RAD_ITS ---
STUDY: X-RAY - PELVIS AND LEFT HIP REASON FOR EXAM: Female, 72 years old. Total hip replacement TECHNIQUE: Radiological exam, hip, unilateral, with pelvis when performed; 2 C-arm views. 4.2 seconds of fluoroscopy time. COMPARISON: None. FINDINGS: Limited field of view images from the OR show bilateral hip arthroplasties grossly satisfactory position. Correlate with procedure note. Electronically Signed: Phillip Estevez MD at 10:36 EDT , Service support , RAD/Hip 1 view with Pelvis
[2018-08-27] MEDS: Ondansetron 4 MG/2 ML Vial IV (12:44)
[2018-08-27] MEDS: Lactated Ringers 1,000 ML 125 ML IV (12:44)
[2018-08-27] MEDS: Ipratropium/Albuterol Sulfate 3 ML AMPUL.NEB INHALATION (13:15)
--- NOTE | 2018-08-27 14:38 | CASEMGMT ---
Addendum entered by Franklyn Allan 08/27/18 15:20: return call received from Enedelia from [facility]. They are able to accept patient and tentative start of care is 08/29/18. they are requesting a call on dc to verify dc date. Original Note: RN JAMES Note. Intro role of CM to patient. Pt states she has equipment @ home. Plan was for outpt therapy, however she feels she needs Home Health on dc. [place] have [place] problems, [place] difficulty making it to outpt appointments. No preference for agency. -Referral faxed to [facility] @ . Call to agency to notify of referral. Jennifer YEAGERN RN ACM
[2018-08-27] MEDS: Ketorolac 15 MG/ML Vial IV (15:30)
[2018-08-27] MEDS: Hydroxychloroquine 200 MG Tablet PO (17:11)
[2018-08-27] MEDS: Aspirin 81 MG TAB.CHEW PO (17:12)
[2018-08-27] MEDS: proMETHazine 25 MG/ML Syringe 12.5 MG IM (17:28)
[2018-08-27] MEDS: oxyCODONE 5 MG Tablet PO (18:45)
[2018-08-27] MEDS: Pantoprazole Sodium 20 MG Tablet PO (22:58)
[2018-08-27] MEDS: Senna/Docusate Sodium 1 Tablet 2 TABLET PO (22:58)
[2018-08-27] MEDS: Losartan Potassium 50 MG Tablet PO (22:58)
[2018-08-28 02:19] VITALS: BP 126/57; PULSE 65; RESP 18; TEMP 36.4; O2SAT 94
[2018-08-28] MEDS: oxyCODONE 5 MG Tablet PO ×3 (02:23→11:42)
[2018-08-28] MEDS: Acetaminophen 500 MG Tablet 1000 MG PO (05:46)
[2018-08-28 06:29] LABS: Hemoglobin 11.6 g/dl (12.0-15.0); Mean Corp Hgb Conc 33.1 g/gl (32-36); Mean Corpuscular Hgb 30.2 pg (27.0-32.0); Mean Corpuscular Volume 91.1 fL (81-99); Platelet Count 188 K/mm3 (150-450); RBC Distribution Width CV 14.5 % (11.6-14.6); Red Blood Count 3.84 M/mm3 (4.2-5.4); White Blood Count 12.5 K/mm3 (4.4-11.0)
[2018-08-28 06:31] LABS: Scan Indicated on CBC? Y/N NO
[2018-08-28 06:45] LABS: Anion Gap 7 (5-15); BUN 13 mg/dL (7-18); BUN/Creat Ratio 19.5 RATIO (10-20); Calcium,Total 8.4 mg/dL (8.5-10.1); Chloride 106 mmol/L (98-107); Creatinine, Serum 0.67 mg/dL (0.55-1.02); EST Glomerular Filtration Rate 93 mL/min (>60); Est Glom Filt Rate - Afr Amer 112 mL/min (>60); Glucose 123 mg/dL (74-106); Potassium 4.1 mmol/L (3.5-5.1); Sodium Level 139 mmol/L (136-145)
[2018-08-28] MEDS: Pantoprazole Sodium 20 MG Tablet PO (07:43)
[2018-08-28] MEDS: Famotidine 20 MG Tablet PO (07:44)
[2018-08-28] MEDS: Meloxicam 7.5 MG Tablet PO (07:44)
[2018-08-28] MEDS: Hydroxychloroquine 200 MG Tablet PO (07:44)
[2018-08-28] MEDS: Senna/Docusate Sodium 1 Tablet 2 TABLET PO (07:44)
[2018-08-28 07:45] VITALS: BP 115/51; PULSE 71; RESP 18; TEMP 36.6; O2SAT 94
[2018-08-28] MEDS: Aspirin 81 MG TAB.CHEW PO (07:45)
[2018-08-28 08:00] VITALS: PULSE 75; RESP 16; O2SAT 98
[2018-08-28] MEDS: Ipratropium/Albuterol Sulfate 3 ML AMPUL.NEB INHALATION (08:00)
[2018-08-28] MEDS: Budesonide Respules 0.5 MG/2 ML AMPUL.NEB. INHALATION (08:00)
--- NOTE | 2018-08-28 09:26 | PCM.PN.ORT ---
Subjective: The patient was sitting in bedside chair upon examination. Patient denies any chest pain, shortness of breath, dizziness, lightheadedness, nausea or vomiting, or calf pain. Pain is controlled on medications. No adverse overnight events. Overall patient is doing well and wishes to go home today. Objective: Vital signs stable and afebrile. Patient is able to plantarflex and dorsiflex actively. Sensation is intact to light touch to saphenous, sural, superficial and deep peroneal, and tibial distribution. Dressing is intact and does have drainage over the lateral portion of the dressing but not enough to change. Negative Homans bilaterally, negative signs and symptoms of DVT. - Physical Exam General: Alert, Oriented x3, Cooperative, No apparent distress Vital Signs Temp Pulse Resp BP Pulse Ox 97.8 F 75 16 115/51 L 98 08/28/18 07:45 08/28/18 08:00 08/28/18 08:00 08/28/18 07:45 08/28/18 08:00 Oxygen Delivery Method Room Air Weight: 71 kg Body Mass Index (BMI) 27.3 Intake and Output for Last 24 Hours 08/26/18 08/27/18 08/28/18 23:59 23:59 23:59 Intake Total 2593 / 2593 980 / 980 Output Total 1999 / 1999 Balance 2593 / 2593 -1020 / -1020 Laboratory Tests Past 24 Hrs 08/28/18 08/28/18 06:05 06:05 WBC 12.5 H RBC 3.84 L Hgb 11.6 L Hct 35.0 L MCV 91.1 MCH 30.2 MCHC 33.1 RDW 14.5 RDW Differential 47.0 H Plt Count 188 MPV 10.0 Sodium 139 Potassium 4.1 Chloride 106 Carbon Dioxide 26.0 Anion Gap 7 BUN 13 Creatinine 0.67 Estim Creat Clear Calc 43.30 Est GFR (MDRD) Af Amer 112 Est GFR (MDRD) Non-Af 93 BUN/Creatinine Ratio 19.5 Glucose 123 H Calcium 8.4 L Medical Necessity - Tobacco Use Smoking Status: Current some day smoker Tobacco Use: Cigarettes Assessment/Plan All Active Problems Cat scratch of right lower leg (Acute) Infected puncture wound (Acute) Nonhealing nonsurgical wound (Acute) 1. S/P left direct anterior total hip arthroplasty POD #1 2. Continue Pain Medications: Tylenol and OxyIR 3. DVT Prophylaxis: Aspirin 81 mg twice daily times 4 weeks with food 4. PT/OT: Weightbearing as tolerated 5. H & H: 11.6/35.0, asymptomatic 6. Leukocytosis: Currently 12.5, afebrile. Patient did receive Decadron intraoperatively 7. Encouraged Incentive Spirometry 8. Disposition: Patient is orthopedically stable. Plan will be for discharge home today with home health physical therapy. Prescriptions will be E scribed to [facility]. Patient will follow-up per postop instructions.
--- NOTE | 2018-08-28 09:39 | PCM.DC.THR ---
Discharge Diet: No Restrictions Discharge Activity: May Not Drive - while taking narcotic pain medications. May shower in (days): 1 - Turned dressing away from water Ice area for (Minutes): 20 - Every 1-2 hours while awake Weight Bearing Status: Weight bearing as tolerated Elevate: Operative Extremity Additional Activity Instructions:: Wear elastic stockings for 2 weeks. DO NOT use alcohol with narcotic pain medication. DO NOT make important decisions while taking narcotic medication. If you have problems with taking your medication (rash, itching, nausea, etc.) call the office at once. Call your doctor if your incision/area has: Increased Pain/ Swelling, Increased Redness, Foul Smelling Discharge Call your doctor if you observe: Fever of 101 or Higher Remove Dressing in (days):: 4 - Okay to remove on September 01, 2018 Additional Instructions: Follow [facility] postop instructions Allergies/Adverse Reactions: Allergies morphine Allergy (Verified 08/15/18 15:05) unknown Penicillins Allergy (Verified 08/15/18 15:05) unknown meperidine [From Demerol] Adverse Reaction (Verified 08/15/18 15:44) Vomiting Medications to take at Discharge albuterol sulfate HFA 90 mcg/actuation aerosol inhaler 2 puff INHALATION Q6H PRN 06/17/18 budesonide-formoterol HFA 160 mcg-4.5 mcg/actuation aerosol inhaler 2 puff INHALATION BID 06/17/18 cholecalciferol (vitamin D3) 1,000 unit capsule 1,000 unit PO QDAY 06/17/18 losartan 50 mg tablet 50 mg PO QDAY 06/17/18 omeprazole 40 mg capsule,delayed release 20 mg PO BID 06/17/18 tiotropium bromide 2.5 mcg/actuation mist for inhalation 2 puff INHALATION QDAY 06/17/18 Hydroxychloroquine Sulfate [Plaquenil] 200 mg PO DAILY MDD 1.5 tabs 08/08/18 Acetaminophen [Tylenol] 1,000 mg PO Q8 #90 tablet 08/28/18 Aspirin [Aspirin, Baby] 81 mg PO BIDCM #60 tab.chew 08/28/18 Meloxicam [Mobic] 7.5 mg PO BID #60 tablet 08/28/18 Oxycodone [Oxyir] 5 - 10 mg PO Q4H PRN PRN 7 Days #80 tablet 08/28/18 Senna/Docusate Sodium [Senokot-S] 2 tablet PO BID #20 tablet 08/28/18 The following prescriptions were given: Oxycodone [Oxyir] 5 - 10 mg PO Q4H PRN PRN 7 Days #80 tablet PRN Reason: Mod-Severe Pain (4-09/10) Acetaminophen [Tylenol] 1,000 mg PO Q8 #90 tablet Aspirin [Aspirin, Baby] 81 mg PO BIDCM #60 tab.chew Meloxicam [Mobic] 7.5 mg PO BID #60 tablet Senna/Docusate Sodium [Senokot-S] 2 tablet PO BID #20 tablet Primary Care Physician: Destini Bustamante MD [Primary Care Provider] - Test Results: Test results from this visit will be discussed in further detail at your follow-up appointment, if applicable. Please Follow Up With: [facility] Therapy When: Will begin 08/29/18 Please Follow Up With: Gus Mejia PA-C When: 09/10/18 @ 11:00 am
[2018-08-28 12:15] VITALS: BP 130/49; PULSE 72; RESP 16; TEMP 36.7; O2SAT 98
== END 2018-08-28 12:22 | disposition home health service (06) | DRG 470 ==
LOC: ACINP 06:38 → MS3 07:32
PROVIDERS: Anesthesiology; Admitting Provider Specialist; Family Provider Internal Medicine; PCP Internal Medicine; Visit Provider Specialist
PROC: 0SRB04A Replacement of Left Hip Joint with Ceramic on Polyethylene Synthetic Substitute, Uncemented, Open Approach (ICD-10-PCS; CPT 27284; principal; 2018-08-27 08:20)
DX: M16.12 Unilateral primary osteoarthritis, left hip (principal); Z96.641 Presence of right artificial hip joint; I10 Essential (primary) hypertension; J44.9 Chronic obstructive pulmonary disease, unspecified; G89.29 Other chronic pain; M54.5 Low back pain; Z87.442 Personal history of urinary calculi; F17.210 Nicotine dependence, cigarettes, uncomplicated; M32.9 Systemic lupus erythematosus, unspecified
CPT/HCPCS: 36415; 73501; 73502; 76000; 80048; 80076; 85025; 85027; 85610; 85730; 87081; 93005; 94640; 97110; 97162; 97166; 97530; 99251; 99406; C1776; J7120; G0463; J2405

== ENCOUNTER → 2019-08-06 16:38 | Outpatient (CLI) | payer MEDICARE, OTHER, SELFPAY ==
[2018-08-27 12:21] VITALS: BMI 27.3
--- NOTE | 2019-08-06 16:40 | RAD_ITS ---
HISTORY: low back pain COMPARISON: None FINDINGS: # of images incl. paperwork: 3 XR Spine Lumbar 3 views: Levoscoliosis of the lower thoracic spine. Dextroscoliosis of the thoracolumbar junction. Levoscoliosis of the lower lumbar spine apex at L4. Surgical clips within the right hemipelvis likely representing cholecystectomy clips. Bilateral femoral total hip arthroplasties. Pelvic springlike metal devices consistent with hernia repair. Degenerative disc disease is present at almost every level. This disease is manifested by loss of disc height, endplate sclerosis and enthesophytes. L5 is anteriorly subluxed on S1 by 12 mm. There is some facet arthropathy. There may be pars fractures. Bone mineral density is diminished. RAD/Lumbar Spine 2 or 3 Views IMPRESSION: Multilevel degenerative disc disease. Scoliosis. Grade 2 anterior listhesis of L5 on S1 by 12 mm. Possible L5 pars interarticularis defects. at 0200 Reported and signed by: Toño Martin MD Electronically Signed: Toño Martin MD at 1:58 EDT Tel , Service support ,
== END ==
PROVIDERS: Family Provider Internal Medicine; PCP Internal Medicine; Referring Provider Anesthesiology Pain Medicine; Visit Provider Anesthesiology Pain Medicine
DX: M54.9 Dorsalgia, unspecified (principal); M79.606 Pain in leg, unspecified
CPT/HCPCS: 72100

== ENCOUNTER → 2019-11-04 15:41 | Outpatient (CLI) | payer MEDICARE, OTHER, SELFPAY ==
[2018-08-27 12:21] VITALS: BMI 27.3
--- NOTE | 2019-11-04 15:51 | RAD_ITS ---
STUDY: X-RAY - LUMBAR SPINE REASON FOR EXAM: Female, 73 years old. Low back pain radiating down right leg TECHNIQUE: 4 view(s) of the lumbar spine were obtained. COMPARISON: 08/06/2019 FINDINGS: There is straightening of the normal lumbar lordosis. There is a dextroscoliosis of the lumbar spine. There is a normal alignment of the vertebrae in the lateral view. There is multilevel endplate spondylosis of the lumbar vertebrae. There is multi-level degenerative disc disease with multi-level disc space narrowing. There is no demonstrated fracture. There is atherosclerotic calcification of the abdominal aorta without a demonstrated aneurysm. RAD/L/S Spine Min 4 Views IMPRESSION: Degenerative changes of the spine, as detailed above. Electronically Signed: Ramesh Pantoja MD at 19:49 EST , Service support ,
== END ==
PROVIDERS: Family Provider Internal Medicine; PCP Internal Medicine; Referring Provider Anesthesiology Pain Medicine; Visit Provider Anesthesiology Pain Medicine
DX: M54.5 Low back pain (principal); M79.606 Pain in leg, unspecified
CPT/HCPCS: 72110

== ENCOUNTER → 2020-05-18 12:29 | Outpatient (CLI) | payer MEDICARE, OTHER, SELFPAY ==
--- NOTE | 2020-05-18 12:42 | MRI_ITS ---
STUDY: MRI LUMBAR SPINE WITHOUT CONTRAST REASON FOR EXAM: Female, 74 years old. low back pain into legs bilateral R and gt;L TECHNIQUE: Standardized fat and water weighted pulse sequences were obtained in the sagittal and axial planes. COMPARISON: 05/19/2018 FINDINGS: T12-L1: Incompletely imaged bulging annulus. 6 mm of grade 1 L5-S1 anterolisthesis, unchanged. S shaped scoliosis. Normal conus medullaris that terminates at the L2 level. L1-2: Disc space narrowing and desiccation with discogenic endplate changes and anterior osteophytes. Bulging annulus and bilateral facet and ligamentum flavum hypertrophy with mild left lateral recess stenosis and moderate to severe left foraminal stenosis. L2-3: Disc space narrowing and desiccation with discogenic endplate changes and anterior osteophytes. Bulging annulus and bilateral facet and ligamentum flavum hypertrophy with mild central canal stenosis and moderate bilateral foraminal stenoses. L3-4: Bulging annulus and bilateral facet and ligamentum flavum hypertrophy with mild right lateral recess stenosis and severe right and mild left foraminal stenoses. Disease at this level has progressed. L4-5: Bulging annulus and bilateral facet hypertrophy and facet joint effusions with moderate right and mild left foraminal stenoses. L5-S1: Anterolisthesis, bulging annulus, and bilateral facet hypertrophy with severe right and mild left foraminal stenoses. Normal visualized sacral ala. Normal visualized paraspinous soft tissue structures. MRI/Spine Lumbar (Routine) IMPRESSION: Multilevel degenerative disease as described. Interval progression of degenerative changes at the L3-4 level. Severe right foraminal stenoses at the L3-4 and L5-S1 levels. Stable grade 1 L5-S1 anterolisthesis. Electronically Signed: Eugene Boucher MD at 13:47 EDT Tel , Service support ,
== END ==
LOC: MRI 12:31
PROVIDERS: PCP Internal Medicine; Referring Provider Anesthesiology Pain Medicine; Visit Provider Anesthesiology Pain Medicine
DX: M54.9 Dorsalgia, unspecified (principal); M79.606 Pain in leg, unspecified
CPT/HCPCS: 72148

== ENCOUNTER → 2020-09-21 14:32 | Outpatient (CLI) | payer MEDICARE, OTHER, SELFPAY ==
[2020-06-28 08:32] VITALS: BMI 26.4
[2020-09-21 15:36] LABS: EXAGEN MAILED SPECIMEN
[2020-09-21 18:41] LABS: Partial Thromboplast Time 23.7 Seconds (24.1-36.2); Prothrombin Time (Protime)PT. 12.5 SECONDS (11.7-14.9)
[2020-09-21 18:42] LABS: Color, Urine Yellow (Yellow); Glucose, Dipstick Normal (Normal); Ketone-Dipstick Negative (Negative); Leukocyte Esterase-Dipstick 25 /ul (Negative); Nitrite-Dipstick Negative (Negative); Occult Blood-Urine 25 /ul (Negative); Protein-Dipstick 30 mg/dl (Negative); Specific Gravity, Urine 1.015 (1.002-1.030); Urine Bilirubin Dipstick Negative (Negative); Urine Clarity Clear (Clear); Urine Urobilinogen Normal (Normal); Urine pH 6.5 (5.0 - 8.0)
[2020-09-21 18:43] LABS: Absolute Lymphocyte Count 4.49 X10^3/uL (0.83-4.51); Absolute Neutrophil Count 4.1 X10^3/uL (2.0-7.7); Basophil# 0.06 X10^3/uL; Basophil% 0.6 % (0-1); Eosinophil# 0.21 X10^3/uL; Eosinophils% 2.2 % (0-5); Hemoglobin 12.4 g/dL (12.0-15.0); Lymphocyte # 4.49 X10^3/ul (4.0); Lymphocyte % 47.9 % (19-41); Mean Corpuscular Hgb 28.2 pg (27.0-32.0); Mean Corpuscular Volume 90.9 fL (81-99); Mean Platelet Vol. 10.6 fl (6.2-12.0); Monocyte# 0.47 X10^3/uL; NRBC Flagged by Analyzer 0 % (0-5); Neutrophil # 4.12 X10^3/uL (2.7-7.7); Neutrophil % 44.1 % (47-70); POSITIVE MORPHOLOGY YES; Platelet Count 234 K/mm3 (150-450); RBC Distribution Width CV 14.7 % (11.6-14.6); RBC Distribution Width SD 49.6 fl (35.1-43.9); White Blood Count 9.4 K/mm3 (4.4-11.0)
[2020-09-21 18:45] LABS: Protein, Urine (Random) 18.7 mg/dL (<11.9); Protein:Creat Ratio 157 mg/g CRE (0-200)
[2020-09-21 18:55] LABS: ALB/GLOB Ratio 1.1 RATIO (0.9-2.4); AST(SGOT) 11 U/L (15-37); Alanine Aminotransfer ALT/SGPT 21 U/L (13-56); Albumin, Serum 3.8 g/dL (3.2-5.0); Alkaline Phosphatase 119 U/L (45-117); Anion Gap 6 (5-15); BUN 12 mg/dL (7-18); BUN/Creat Ratio 22.6 RATIO (10-20); CRP < 2.90 mg/L (0.0-3.0); Chloride 106 mmol/L (98-107); Creatinine, Serum 0.53 mg/dL (0.55-1.02); EST Glomerular Filtration Rate 120 mL/min (>60); Est Glom Filt Rate - Afr Amer 145 mL/min (>60); Globulin 3.4 g/dL (2.2-4.2); Glucose 87 mg/dL (74-106); Potassium 3.9 mmol/L (3.5-5.1); Protein, Total 7.2 g/dL (6.4-8.2); Sodium Level 140 mmol/L (136-145)
[2020-09-21 18:56] LABS: Differential Indicated SCAN CRITERIA MET
[2020-09-21 19:07] LABS: Erythrocyte Sedimentation Rate 9 mm/hr (0-30)
[2020-09-21 21:13] LABS: Reactive Lymphocyte 2+
[2020-09-22 10:00] LABS: Hepatitis B Surface Antibody Non-Reactive; Hepatitis B Surface Antigen Non-Reactive (Nonreactive); Hepatitis C Antibody Non-Reactive (Nonreactive)
[2020-09-26 10:07] LABS: Thrombin Time 18.6 sec (0.0-23.0)
[2020-09-29 16:08] LABS: Dilute Prothrombin Time (dPT) 35.8 sec (0.0-55.0); Hexagonal Phase Phospholipid 3 sec (0-11); Thrombin Time 17.5 sec (0.0-23.0); dPT Confirm Ratio 1.13 Ratio (0.00-1.40)
[2020-09-30 06:17] LABS: Interpretation Comment: (.)
== END ==
PROVIDERS: PCP Internal Medicine; Referring Provider Internal Medicine Rheumatology; Visit Provider Internal Medicine Rheumatology
DX: M06.4 Inflammatory polyarthropathy (principal); M79.7 Fibromyalgia; M35.00 Sjogren syndrome, unspecified; K21.9 Gastro-esophageal reflux disease without esophagitis; I10 Essential (primary) hypertension; J44.9 Chronic obstructive pulmonary disease, unspecified; R76.8 Other specified abnormal immunological findings in serum
CPT/HCPCS: 36415; 80053; 81002; 82570; 84156; 85025; 85598; 85610; 85652; 85670; 85730; 86140; 86706; 86803; 87340

== ENCOUNTER → 2020-12-26 13:07 | Outpatient (CLI) | payer MEDICARE, OTHER, SELFPAY ==
[2020-06-28 08:32] VITALS: BMI 26.4
[2020-12-26 13:28] LABS: Amylase 62 U/L (25-115); Lipase 117 U/L (73-393)
== END ==
PROVIDERS: PCP Internal Medicine; Referring Provider Nurse Practitioner; Visit Provider Nurse Practitioner
DX: R10.84 Generalized abdominal pain (principal)
CPT/HCPCS: 82150; 83690

== ENCOUNTER → 2022-10-10 | Outpatient (CLI) | payer MEDICARE, OTHER, SELFPAY ==
[2022-10-10 12:06] LABS: Erythrocyte Sedimentation Rate 24 mm/hr (0-30)
[2022-10-10 12:09] LABS: Absolute Lymphocyte Count 3.88 X10^3/uL (0.83-4.51); Absolute Neutrophil Count 3.2 X10^3/uL (2.0-7.7); Basophil# 0.05 X10^3/uL; Basophil% 0.6 % (0-1); Eosinophil# 0.35 X10^3/uL; Eosinophils% 4.4 % (0-5); Hematocrit 40.2 % (37-47); Hemoglobin 13.3 g/dL (12.0-15.0); Lymphocyte # 3.88 X10^3/ul (0.83-4.51); Lymphocyte % 49.2 % (19-41); Mean Corp Hgb Conc 33.1 g/dL (32-36); Mean Corpuscular Hgb 29.2 pg (27.0-32.0); Mean Corpuscular Volume 88.4 fL (81-99); Mean Platelet Vol. 10.4 fl (6.2-12.0); Monocyte# 0.35 X10^3/uL; Monocyte% 4.4 % (0-10); NRBC Flagged by Analyzer 0 % (0-5); Neutrophil # 3.24 X10^3/uL (2.7-7.7); Neutrophil % 41.1 % (47-70); POSITIVE MORPHOLOGY YES; Platelet Count 179 K/mm3 (150-450); RBC Distribution Width CV 14.4 % (11.6-14.6); RBC Distribution Width SD 46.3 fl (35.1-43.9); Red Blood Count 4.55 M/mm3 (4.2-5.4); White Blood Count 7.9 K/mm3 (4.4-11.0)
[2022-10-10 12:39] LABS: Differential Indicated SCAN CRITERIA MET
[2022-10-10 12:50] LABS: Reactive Lymphocyte 1+
[2022-10-10 13:01] LABS: AST(SGOT) 14 U/L (15-37); Alanine Aminotransfer ALT/SGPT 19 U/L (13-56); Albumin, Serum 3.5 g/dL (3.2-5.0); Alkaline Phosphatase 91 U/L (45-117); Amylase 61 U/L (25-115); Anion Gap 6 (5-15); BUN 15 mg/dL (7-18); BUN/Creat Ratio 24.9 RATIO (10-20); CRP 3.18 mg/L (0.0-3.0); Calcium,Total 9.3 mg/dL (8.5-10.1); Chloride 106 mmol/L (98-107); EST Glomerular Filtration Rate 103 mL/min (>60); Est Glom Filt Rate - Afr Amer 125 mL/min (>60); Globulin 3.4 g/dL (2.2-4.2); Glucose 86 mg/dL (74-106); Lipase 98 U/L (73-393); Potassium 4.2 mmol/L (3.5-5.1); Protein, Total 6.9 g/dL (6.4-8.2); Sodium Level 138 mmol/L (136-145)
[2022-10-11 14:09] LABS: Anti-Centromere B Ab <0.2 AI (0.0-0.9); Anti-Chromatin <0.2 AI (0.0-0.9); Anti-Jo <0.2 AI (0.0-0.9); Anti-Scleroderma-70 AB <0.2 AI (0.0-0.9); RNP Ab <0.2 AI (0.0-0.9); SJOGREN'S Anti-SS-A test 1.6 AI (0.0-0.9); SJOGREN'S Anti-SS-B test < 0.2 AI (0.0-0.9); Smith Ab <0.2 AI (0.0-0.9)
[2022-10-11 16:09] LABS: Endomysial Antibody IgA Negative (Negative)
[2022-10-12 15:12] LABS: Anti-Mitochondrial AB <20.0 Units (0.0-20.0); Anti-dsDNA Ab <1 IU/mL (0-9)
[2022-10-12 15:13] LABS: Immunoglobulin A 197 mg/dL (64-422); t-Transglutaminase IgA <2 U/mL (0-3)
[2022-10-18 01:07] LABS: Cytoplasmic Ab (C-ANCA) <1:20 titer (Neg:<1:20); IgG, Quant 834 mg/dL (586-1602); Immunoglobulin A 192 mg/dL (64-422); Immunoglobulin E 22 IU/mL (6-495); Immunoglobulin G, Subclass 1 628 mg/dL (248-810); Immunoglobulin G, Subclass 2 95 mg/dL (130-555); Immunoglobulin G, Subclass 3 36 mg/dL (15-102); Immunoglobulin G, Subclass 4 24 mg/dL (2-96); Immunoglobulin M 77 mg/dL (26-217)
[2022-10-18 15:50] LABS: Anti-Smooth Muscle ABS 8 Units (0-19); Perinuclear Ab (P-ANCA) <1:20 titer (Neg:<1:20)
== END | disposition home or self-care (01) ==
PROVIDERS: PCP Internal Medicine; Referring Provider Nurse Practitioner Adult Health; Visit Provider Nurse Practitioner Adult Health
DX: R10.13 Epigastric pain (principal); R19.7 Diarrhea, unspecified
CPT/HCPCS: 36415; 80053; 82150; 82784; 82785; 82787; 83516; 83690; 85025; 85652; 86140; 86225; 86235; 86255; 86256

== ENCOUNTER → 2022-10-15 | Outpatient (CLI) | payer MEDICARE, OTHER, SELFPAY ==
[2022-10-17 16:07] LABS: Fats, Neutral Normal (.); Fats, Total Normal (.)
== END | disposition home or self-care (01) ==
LOC: LAB 14:54
PROVIDERS: PCP Internal Medicine; Referring Provider Nurse Practitioner Adult Health; Visit Provider Nurse Practitioner Adult Health
DX: R10.13 Epigastric pain (principal); R19.7 Diarrhea, unspecified
CPT/HCPCS: 82653; 82705

== ENCOUNTER → 2022-12-12 | Outpatient (CLI) | payer MEDICARE, OTHER, SELFPAY ==
[2022-12-12 13:15] LABS: LDH 181 U/L (84-246)
[2022-12-14 16:09] LABS: Albumin 3.8 g/dL (2.9-4.4); Alpha-1-Globulins 0.3 g/dL (0.0-0.4); Alpha-2-Globulins 0.6 g/dL (0.4-1.0); Gamma Globulin 0.8 g/dL (0.4-1.8); Immunoglobulin A 158 mg/dL (64-422); Immunoglobulin G 857 mg/dL (586-1602); Immunoglobulin M 70 mg/dL (26-217); PROEL- TOTAL PROTEIN 6.4 g/dL (6.0-8.5)
[2022-12-14 17:42] LABS: Gastrin, Serum 71 pg/mL (0-115); IMMUNOFIXATION RESULT,S Comment: (.)
== END | disposition home or self-care (01) ==
PROVIDERS: PCP Internal Medicine; Visit Provider Nurse Practitioner Adult Health
DX: R10.13 Epigastric pain (principal); R19.7 Diarrhea, unspecified
CPT/HCPCS: 36415; 82784; 82941; 83615; 84165; 86334

== ENCOUNTER → 2022-12-19 | Outpatient (CLI) | payer MEDICARE, OTHER, SELFPAY ==
[2022-12-21 20:27] LABS: Calprotectin, Stool 114 ug/g (0-120)
== END | disposition home or self-care (01) ==
LOC: LABSPEC 10:41
PROVIDERS: PCP Internal Medicine; Referring Provider Nurse Practitioner Adult Health; Visit Provider Nurse Practitioner Adult Health
DX: K58.9 Irritable bowel syndrome, unspecified (principal); R19.7 Diarrhea, unspecified; R10.13 Epigastric pain
CPT/HCPCS: 83630; 83993; 87506

== ENCOUNTER → 2023-01-22 | Outpatient (CLI) | payer MEDICARE, OTHER, SELFPAY ==
--- NOTE | 2023-01-22 17:40 | MRI_ITS ---
INDICATION: postprand epig pain, hx pancreatitis, EPI -- nl biliary/pancreas on CT EXAMINATION: MRI - MR MRCP and Abdomen W/O Contrast TECHNIQUE: Multiplanar and multisequence MR images of the abdomen were obtained with MRCP sequence. Three-dimensional post-processing reconstructions were performed. IV Contrast Dosage and Agent: None. COMPARISON: None. FINDINGS: LIVER: Questionable slight contour nodularity. GALLBLADDER AND BILIARY TREE: The gallbladder is surgically absent. There is a cystic duct remnant. The CBD measures 6. There appears to be filling defects within the common hepatic and common bile duct, however these are most likely artifactual. No intra- or extrahepatic biliary dilation. No choledochal filling defect. PANCREAS: No mass. No pancreatic duct dilation. SPLEEN: Enlarged measuring 15.6 cm in craniocaudal dimension. ADRENAL GLANDS: No nodules. KIDNEYS: Normal renal size and position. No hydronephrosis. No mass. LYMPH NODES: No enlarged periportal or retroperitoneal lymph nodes. PERITONEUM: No ascites or fluid collection. VESSELS: Aorta is non-dilated. LOWER CHEST: No pleural effusion. MRI/MRCP Abdomen without Contrast IMPRESSION: No biliary dilation or choledocolithiasis. The common bile duct diameter is at the upper limits of normal measuring 6 mm. No intra or extrahepatic biliary duct dilatation. Splenomegaly. Electronically Signed: Larry Gray MD at 20:52 EST ,
== END | disposition home or self-care (01) ==
LOC: MRI 16:29
PROVIDERS: PCP Internal Medicine; Visit Provider Nurse Practitioner Adult Health
DX: K85.90 Acute pancreatitis without necrosis or infection, unspecified (principal)
CPT/HCPCS: 74181

== ENCOUNTER → 2023-02-05 | Outpatient (CLI) | payer MEDICARE, OTHER, SELFPAY ==
[2023-02-07 19:36] LABS: Carbohydrate Ag 19-9 2261 4 U/mL (0-35)
== END | disposition home or self-care (01) ==
LOC: LAB 15:53
PROVIDERS: PCP Internal Medicine; Referring Provider Nurse Practitioner Adult Health; Visit Provider Nurse Practitioner Adult Health
DX: D13.4 Benign neoplasm of liver (principal)
CPT/HCPCS: 36415; 86301

== ENCOUNTER 2023-02-13 09:29 | Day surgery (SDC) | payer MEDICARE, OTHER, SELFPAY ==
[2023-02-13] VITALS (7 sets, daily range): BP systolic 132–147; BP diastolic 54–72; PULSE 64–72; RESP 14–18; TEMP 36.2–37.1; O2SAT 98–100; BMI 26.4
[2023-02-13] MEDS: Lactated Ringers 1,000 ML 15 ML IV (10:12)
--- NOTE | 2023-02-13 10:30 | EGD_PTH ---
PATIENT: JORGE LUIS CARDENAS LOC: EN U#:[id number] AGE/SX: 77/F ROOM: RE02/13/[address]: Dr. Shiv Ferro DO : 1945 BED: DIS: 02/13/2023 SPEC #: [id number] RECD: 02/13/23 13:32 STATUS: HEATHER ROBERTO #: [id number] ROMMEL: 02/13/23 10:[address]: Shiv Ferro DEPT: SURGICAL PATHOLOGY RECD BY: Deborah Mendoza ENTERED: 02/14/23 09:51 SP TYPE: EGD BIOPSY OT DR: Dr. Destini Bustamante MD Tissues: A - Pylorus B - Duodenum, NOS C - Esophagus, NOS D - Sigmoid colon biopsy E - Ileum, NOS F - COLON BIOPSY G - COLON BIOPSY Procedures: Special Stain Group II Surgery Specimen Level IV Alcian Blue/PAS (control) HEADER OPERATION: Colonoscopy, EGD (MAC) and biopsies and polypectomy PRE-OP DIAGNOSIS: Epigastric pain, diarrhea, exocrine pancreatic insufficiency TISSUE SUBMITTED: A ? Pyloric channel ulcer biopsy, B ? Duodenum biopsy, C ? Distal esophagus biopsy, D ? Sigmoid colon polyp, E ? Terminal ileum, F ? Random colonic biopsies, G ? x2 splenic flexure polyps MICROSCOPIC DIAGNOSIS A. Prepyloric channel ulcer, biopsy: Gastroenteric mucosa with mild chronic inflammation. See comment. B. Duodenum, biopsy: Minimal nonspecific chronic inflammation. C. Distal esophagus, biopsy: Gastroesophageal junctional mucosa with mild chronic inflammation. No evidence of goblet cell metaplasia. See comment. D. Sigmoid colon polyp, biopsy: Tubular adenoma. E. Terminal ileum, biopsy: No pathologic change. F. Colon, random biopsy: No pathologic change. G. Splenic flexure polyp, biopsy: Tubular adenoma. Fecal debris fragment. AM:kong 02/15/2023 COMMENT A. The results of immunohistochemistry for Helicobacter pylori will be reported separately ([id number]). C. Alcian blue/PAS stain with matched control supports the above diagnosis. MICROSCOPIC DESCRIPTION Slides are reviewed. GROSS DESCRIPTION A - Received in fixative is one container labeled with the patient's name and designated pyloric channel ulcer biopsy. The specimen consists of two irregular fragments of light slaughter soft tissue that in aggregate measure 0.5 x 0.3 x 0.1 cm. The specimen is totally submitted in one cassette. B - Received in fixative is one container labeled with the patient's name and designated duodenum biopsy. The specimen consists of multiple irregular fragments of light slaughter soft tissue that in aggregate measure 1.0 x 0.3 x 0.1 cm. The specimen is totally submitted in one cassette. C - Received in fixative is one container labeled with the patient's name and designated distal esophagus biopsy. The specimen consists of one irregular fragment of light slaughter soft tissue that measures 0.3 x 0.3 x 0.1 cm. The specimen is totally submitted in one cassette. D - Received in fixative is one container labeled with the patient's name and designated sigmoid colon polyp. The specimen consists of a slaughter-pink polyp measuring 0.5 x 0.5 x 0.3 cm. The specimen is totally submitted in one cassette. E - Received in fixative is one container labeled with the patient's name and designated terminal ileum biopsy. The specimen consists of multiple irregular fragments of light slaughter soft tissue that in aggregate measure 0.8 x 0.2 x 0.1 cm. The specimen is totally submitted in one cassette. F - Received in fixative is one container labeled with the patient's name and designated random colon biopsy. The specimen consists of two irregular fragments of light slaughter soft tissue that in aggregate measure 0.5 x 0.3 x 0.1 cm. The specimen is totally submitted in one cassette. G - Received in fixative is one container labeled with the patient's name and designated splenic flexure polyp x2. The specimen consists of two irregular fragments of light slaughter soft tissue that in aggregate measure 0.5 x 0.3 x 0.1 cm. The specimen is totally submitted in one cassette. / SJ:rg 02/14/2023 TC:3 CPT: 20969 x7, [id number]
--- NOTE | 2023-02-13 10:30 | IMM_PTH ---
PATIENT: JORGE LUIS CARDENAS LOC: EN U#:[id number] AGE/SX: 77/F ROOM: RE02/13/[address]: Dr. Shiv Ferro DO : 1945 BED: DIS: 02/13/2023 SPEC #: [id number] RECD: 02/14/23 12:33 STATUS: HEATHER REQ #: [id number] ROMMEL: 02/13/23 10:[address]: Shiv Ferro DEPT: IMMUNOHISTOCHEMISTRY RECD BY: Christine Henson ENTERED: 02/14/23 12:35 SP TYPE: IMMUNO OTHR DR: Dr. Destini Bustamante MD Tissues: A - Pyloric antrum Procedures: H Pylori (initial) PHYSICIAN & INSTITUTION [place] [id number] SPECIMEN INFORMATION: Tissue Source: Pyloric channel ulcer biopsy Clinical Info: Epigastric pain, diarrhea, exocrine pancreatic insufficiency Specimen Number: [id number] CPT code: 15677 METHODOLOGY: Deparaffinized sections of prefer/formalin-fixed tissue or PAP/DQ stained slides are incubated with monoclonal/polyclonal antibodies/oligonucleotide probes. Localization is made via biotin free immunoperoxidase method. Appropriate controls are performed and reacted as expected. Results on target cell population are indicated in the following table: RESULTS: ANTIBODY / CLONE RESULT Block A H Pylori (polyclonal) negative These tests were developed and their performance characteristics determined by [facility]. They may not have been cleared or approved by the U.S. Food and Drug Administration. The FDA has determined that such clearance or approval is not necessary. The above immunohistochemical/dualISH markers are ordered and reviewed by the Pathologist. INTERPRETATION: A. Pyloric channel ulcer, biopsy: Negative for Helicobacter pylori organisms. AM:kong 02/15/2023
--- NOTE | 2023-02-13 10:49 | PCM.HP.BLA ---
History and Physical Date of Admission: 02/13/23 7 F who presents to the office today for 2 month f/u 4 yrs of epigastric pain, diarrhea 10/2022 w/u: CBC unremarkable. ESR 24, CMP unremarkable, CRP 3.18, amylase normal, lipase normal, G/A/M/E normal, IgG subclasses not elevated, negative celiac, elevated SS-A/Ro IgG Ab consistent with Sjogren's, fecal fats normal, fecal elastase low 140 She tried samples of Zenpep pancreatic enzymes, 2 capsules with meal or snack, initially that seemed to provide partial relief of pain but that relief didn't continue. She has significant epigastric pain post-prandially, it radiates through to the back. Has nausea in mornings, no vomiting. No dysphagia. No heartburn. Taking omeprazole BID. She is alternating between diarrhea and constipation. Never has formed stool--either constipation by which she means no BM 1-2 days per week, has tenesmus, otherwise has diarrhea. Stool is loose or watery diarrhea. It is urgent. She has accidents. Diarrhea wakes her at night. Has pain in lower back after she has a BM. Hips also ache after BM. The epigastric pain, back pain and hip pain are worse if she takes loperamide. Tried and failed colestipol. No melena or hematochezia. She has Sjogren's disease and lupus. Hx pancreatitis 15 yrs ago. Had upper and lower endoscopy 03/2021; mild gastritis, colon tubular adenoma x2, negative pathology on random colon biopsies, negative H. pylori. 04/23/2022 CT abdomen and pelvis with IV contrast performed at [facility]: Splenomegaly, spleen measures 15.9 cm, otherwise no acute abnormality.? Fatty infiltration of the pancreas. ROS Const Constitutional: No fatigue ENT ENT: No difficulty swallowing Gastro GI: No abdominal pain, belching, bloating, change in bowel habits, change in stool character, coffee ground emesis, constipation, cramping, diarrhea, heartburn, difficulty swallowing, feeling full early, excessive flatus, incontinent of stools, Vomiting blood/hematemesis, Blood in stool, loose stools, Black,tarry stools, nausea/dyspepsia, pain with swallowing, vomiting or other Musc Musculoskeletal: No joint pain Skin Skin: No yellowing of the eye or itchy eyes Psych Psychiatric: No anxiety and No depression Endo Endocrine: No fatigue Aller/Imm Allergy/Immunologic: No itchy eyes Jonn/Lymp Hematologic/Lymphatic: No easy bleeding or easy bruising Exam Const General: cooperative and no acute distress Orientation: alert, awake and oriented x3 HENMT Head: normal to inspection Eyes Sclera: sclerae normal Resp Effort & Inspection: normal respiratory effort GI Inspection: normal to inspection Palpation: soft, no hepatosplenomegaly, no masses and nontender Skin General: no rashes or lesions noted Quality Reporting Tobacco Screening (CMS 138) Smoking Status: Current some day smoker Assessment and Plan Assessment and Plan (1) Epigastric pain: ?Status:?Chronic ?Plan: 77 yr old female with 4 yrs of severe postprandial epigastric pain that radiates through to the back. Low fecal elastase. Remote hx of pancreatitis. Initial lab w/u unremarkable. Will get more labs today. DDx includes chronic pancreatitis, IBD, hypergastrinemia Schedule EGD and colonoscopy, w/ office f/u 2 wks later Once we have labs back we'll decide re imaging Consider MRCP (2) Diarrhea: ?Status:?Chronic ?Plan: Stool tests for inflammation, infection (3) Exocrine pancreatic insufficiency: ?Status:?Acute ?Plan: Samples of Zenpep to try higher dose, 3-4 per meal/snack ? ? ? Orders: Orders Gastrin, Serum 12/12/22 R10.13 - Epigastric pain, R19.7 - Diarrhea, unspecified ? Miscellaneous Lab Procedure 12/12/22 R10.13 - Epigastric pain, R19.7 - Diarrhea, unspecified ? LDH 12/12/22 R19.7 - Diarrhea, unspecified ? Calprotectin, Stool 12/12/22 R19.7 - Diarrhea, unspecified ? Stool Lactoferrin/WBC 12/12/22 K58.9 - Irritable bowel syndrome without diarrhea, R19.7 - Diarrhea, unspecified ? ARTEMIO + Protein Elect, Serum 12/12/22 R19.7 - Diarrhea, unspecified ? CDIFF (PCR) 12/12/22 R19.7 - Diarrhea, unspecified ? ENTERIC PATHOGEN PANEL STOOL 12/12/22 K58.9 - Irritable bowel syndrome without diarrhea, R10.13 - Epigastric pain, R19.7 - Diarrhea, unspecified ? Coding Level of Care Code Off vis,est,level 3 Diagnoses Epigastric pain? R10.13 Diarrhea? R19.7 Exocrine pancreatic insufficiency? K86.81 I have examined the patient and the H&P has been reviewed. There are no clinical changes since date of exam.
--- NOTE | 2023-02-13 11:38 | OP.EGD_ITS ---
Patient Name: Radha Booker Procedure Date: 02/13/2023 10:48 AM Date of : 1945 Age: 77 Procedure: Upper GI endoscopy Indications: Suspected esophageal reflux Providers: Shiv Ferro DO Medicines: Monitored Anesthesia Care Patient Profile: This is a 77 year old female. Refer to note in patient chart for documentation of history and physical. Patient has symptoms of chronic epigastric abdominal pain and chronic dyspepsia. Complications: No immediate complications. Procedure: Pre-Anesthesia Assessment: - Prior to the procedure, a History and Physical was performed, and patient medications and allergies were reviewed. The risks and benefits of the procedure and the sedation options and risks were discussed with the patient. All questions were answered and informed consent was obtained. Patient identification and proposed procedure were verified by the physician in the pre-procedure area. Mental Status Examination: alert and oriented. Airway Examination: normal oropharyngeal airway and neck mobility. Respiratory Examination: clear to auscultation. CV Examination: normal. Prophylactic Antibiotics: The patient does not require prophylactic antibiotics. Prior Anticoagulants: The patient has taken no previous anticoagulant or antiplatelet agents. ASA Grade Assessment: II - A patient with mild systemic disease. After reviewing the risks and benefits, the patient was deemed in satisfactory condition to undergo the procedure. The anesthesia plan was to use monitored anesthesia care (MAC). Immediately prior to administration of medications, the patient was re-assessed for adequacy to receive sedatives. The heart rate, respiratory rate, oxygen saturations, blood pressure, adequacy of pulmonary ventilation, and response to care were monitored throughout the procedure. The physical status of the patient was re-assessed after the procedure. After obtaining informed consent, the endoscope was passed under direct vision. Throughout the procedure, the patient's blood pressure, pulse, and oxygen saturations were monitored continuously. The pediatric colonoscope was introduced through the mouth, and advanced to the second part of duodenum. The upper GI endoscopy was accomplished without difficulty. The patient tolerated the procedure well. Scope In: 10:56:57 AM Scope Out: 11:00:40 AM Total Procedure Duration Time 0 hours 3 minutes 43 seconds Findings: Non-severe esophagitis with no bleeding was found 39 to 40 cm from the incisors. Biopsies were taken with a cold forceps for histology. Verification of patient identification for the specimen was done. Estimated blood loss was minimal. Localized moderate inflammation characterized by congestion (edema), erosions and erythema was found in the gastric body. Biopsies were taken with a cold forceps for histology. Verification of patient identification for the specimen was done. Estimated blood loss was minimal. Mildly erythematous mucosa without active bleeding and with no stigmata of bleeding was found in the first portion of the duodenum. Biopsies were taken with a cold forceps for histology. Verification of patient identification for the specimen was done. Estimated blood loss was minimal. Three non-bleeding cratered gastric ulcers with no stigmata of bleeding were found at the pylorus. The largest lesion was 3 mm in largest dimension. Biopsies were taken with a cold forceps for histology. Verification of patient identification for the specimen was done. Estimated blood loss was minimal. Impression: - Non-severe reflux esophagitis. Biopsied. - Bile gastritis. Biopsied. - Erythematous duodenopathy. Biopsied. Recommendation: - Discharge patient to home. - Resume previous diet. - Continue present medications. - Await pathology results. Procedure Code(s): --- Professional --- 11314, Esophagogastroduodenoscopy, flexible, transoral; with biopsy, single or multiple CPT copyright 2017 [employer]. All rights reserved. The codes documented in this report are preliminary and upon hcc coders review may be revised to meet current compliance requirements. Shiv Ferro DO 02/13/2023 11:37:55 AM This report has been signed electronically. Number of Addenda: 0 Note Initiated On: 02/13/2023 10:48 AM
--- NOTE | 2023-02-13 11:39 | OP.CCLET_ITS ---
02/13/2023 Destini Bustamante [address] [place] [address] Re : Upper GI endoscopy procedure for Radha Booker Dear Dr. Bustamante This procedure was performed on Monday, February 13, 2023. My impressions and recommendations are as follows: Impressions : - Non-severe reflux esophagitis. Biopsied. - Bile gastritis. Biopsied. - Erythematous duodenopathy. Biopsied. Recommendations : - Discharge patient to home. - Resume previous diet. - Continue present medications. - Await pathology results. My findings are described in the full procedure note, which is enclosed. If I can be of further assistance, please feel free to contact me at . Sincerely, Shiv Ferro, 02/13/2023 11:37:55 AM This report has been signed electronically.
--- NOTE | 2023-02-13 11:45 | OP.COLON_ITS ---
Patient Name: Radha Booker Procedure Date: 02/13/2023 11:00 AM Date of : 1945 Age: 77 Procedure: Colonoscopy Indications: Clinically significant diarrhea of unexplained origin Providers: Shiv Ferro DO Medicines: Monitored Anesthesia Care Patient Profile: This is a 77 year old female. Refer to note in patient chart for documentation of history and physical. Patient has symptoms of chronic epigastric abdominal pain and chronic dyspepsia. Last Colonoscopy: 5 years ago. Complications: No immediate complications. Procedure: Pre-Anesthesia Assessment: - Prior to the procedure, a History and Physical was performed, and patient medications and allergies were reviewed. The risks and benefits of the procedure and the sedation options and risks were discussed with the patient. All questions were answered and informed consent was obtained. Patient identification and proposed procedure were verified by the physician in the pre-procedure area. Mental Status Examination: alert and oriented. Airway Examination: normal oropharyngeal airway and neck mobility. Respiratory Examination: clear to auscultation. CV Examination: normal. Prophylactic Antibiotics: The patient does not require prophylactic antibiotics. Prior Anticoagulants: The patient has taken no previous anticoagulant or antiplatelet agents. ASA Grade Assessment: II - A patient with mild systemic disease. After reviewing the risks and benefits, the patient was deemed in satisfactory condition to undergo the procedure. The anesthesia plan was to use monitored anesthesia care (MAC). Immediately prior to administration of medications, the patient was re-assessed for adequacy to receive sedatives. The heart rate, respiratory rate, oxygen saturations, blood pressure, adequacy of pulmonary ventilation, and response to care were monitored throughout the procedure. The physical status of the patient was re-assessed after the procedure. After I obtained informed consent, the scope was passed under direct vision. Throughout the procedure, the patient's blood pressure, pulse, and oxygen saturations were monitored continuously. The adult colonoscope was introduced through the anus and advanced to the terminal ileum. The colonoscopy was performed without difficulty. The patient tolerated the procedure well. The quality of the bowel preparation was adequate. Scope In: 11:02:30 AM Scope Withdrawal Time 0 hours 17 minutes 33 seconds Scope Out: 11:29:07 AM Total Procedure Duration Time 0 hours 26 minutes 37 seconds Findings: The perianal and digital rectal examinations were normal. There was significant spasm in the recto-sigmoid colon, in the sigmoid colon and in the descending colon. Two sessile polyps were found in the sigmoid colon and splenic flexure. The polyps were 1 to 2 mm in size. These polyps were removed with a hot snare. Resection and retrieval were complete. Verification of patient identification for the specimen was done. Estimated blood loss was minimal. A few small-mouthed diverticula were found in the recto-sigmoid colon and sigmoid colon. An area of mildly congested mucosa was found in the recto-sigmoid colon, in the sigmoid colon and at the splenic flexure. Biopsies were taken with a cold forceps for histology. Verification of patient identification for the specimen was done. Estimated blood loss was minimal. The terminal ileum appeared normal. Biopsies for histology were taken with a cold forceps for evaluation of celiac disease. Verification of patient identification for the specimen was done. Estimated blood loss was minimal. Impression: - Significant colonic spasm consistent with irritable bowel syndrome. - Two 1 to 2 mm polyps in the sigmoid colon and at the splenic flexure, removed with a hot snare. Resected and retrieved. - Diverticulosis in the recto-sigmoid colon and in the sigmoid colon. - Congested mucosa in the recto-sigmoid colon, in the sigmoid colon and at the splenic flexure. Biopsied. - The examined portion of the ileum was normal. Biopsied. Recommendation: - Discharge patient to home. - Resume previous diet. - Continue present medications. - Await pathology results. - Repeat colonoscopy in 3 years for surveillance. Procedure Code(s): --- Professional --- 21694, Colonoscopy, flexible; with removal of tumor(s), polyp(s), or other lesion(s) by snare technique 10947, 59, Colonoscopy, flexible; with biopsy, single or multiple CPT copyright 2017 [employer]. All rights reserved. The codes documented in this report are preliminary and upon interior paneler review may be revised to meet current compliance requirements. Shiv Ferro DO 02/13/2023 11:45:08 AM This report has been signed electronically. Number of Addenda: 0 Note Initiated On: 02/13/2023 11:00 AM
--- NOTE | 2023-02-13 11:46 | OP.CCLET_ITS ---
02/13/2023 Destini Bustamante [address] [place] [address] Re : Colonoscopy procedure for Radha Booker Dear Dr. Bustamante This procedure was performed on Monday, February 13, 2023. My impressions and recommendations are as follows: Impressions : - Significant colonic spasm consistent with irritable bowel syndrome. - Two 1 to 2 mm polyps in the sigmoid colon and at the splenic flexure, removed with a hot snare. Resected and retrieved. - Diverticulosis in the recto-sigmoid colon and in the sigmoid colon. - Congested mucosa in the recto-sigmoid colon, in the sigmoid colon and at the splenic flexure. Biopsied. - The examined portion of the ileum was normal. Biopsied. Recommendations : - Discharge patient to home. - Resume previous diet. - Continue present medications. - Await pathology results. - Repeat colonoscopy in 3 years for surveillance. My findings are described in the full procedure note, which is enclosed. If I can be of further assistance, please feel free to contact me at . Sincerely, Shiv Ferro, 02/13/2023 11:45:08 AM This report has been signed electronically.
== END 2023-02-13 12:34 | disposition home or self-care (01) ==
LOC: EN 09:30 → AC 09:32
PROVIDERS: PCP Internal Medicine; Referring Provider Internal Medicine; Visit Provider Internal Medicine Gastroenterology
PROC: 0DJD8ZZ Inspection of Lower Intestinal Tract, Via Natural or Artificial Opening Endoscopic (ICD-10-PCS; CPT 45378; principal; 2023-02-13 10:25)
DX: D12.3 Benign neoplasm of transverse colon (principal); D12.5 Benign neoplasm of sigmoid colon; K63.89 Other specified diseases of intestine; K29.70 Gastritis, unspecified, without bleeding; K57.30 Diverticulosis of large intestine without perforation or abscess without bleeding; K58.0 Irritable bowel syndrome with diarrhea; K25.7 Chronic gastric ulcer without hemorrhage or perforation; K21.00 Gastro-esophageal reflux disease with esophagitis, without bleeding; F17.200 Nicotine dependence, unspecified, uncomplicated; G47.30 Sleep apnea, unspecified; I10 Essential (primary) hypertension; Z79.82 Long term (current) use of aspirin; Z79.899 Other long term (current) drug therapy
CPT/HCPCS: 45385; 45380; 43239; 88305; 88313; 88342; J7120; J2405

== ENCOUNTER 2023-05-08 19:59 | Emergency (ER) | payer MEDICARE, OTHER, SELFPAY ==
[2023-05-08 20:00] VITALS: BP 206/75; PULSE 81; RESP 15; TEMP 36.4; O2SAT 98; BMI 28.7
== END 2023-05-08 20:30 | disposition left against medical advice (07) ==
LOC: ED 20:33
PROVIDERS: PCP Internal Medicine
DX: R51.9 Headache, unspecified (principal); Z53.21 Procedure and treatment not carried out due to patient leaving prior to being seen by health care provider

== ENCOUNTER 2023-05-09 08:23 | Emergency (ER) | payer MEDICARE, OTHER, SELFPAY ==
[2023-05-09 08:24] VITALS: BP 186/77; PULSE 73; RESP 14; TEMP 36.5; O2SAT 100; BMI 28.7
--- NOTE | 2023-05-09 08:46 | CT_ITS ---
STUDY: CT BRAIN WITHOUT CONTRAST REASON FOR EXAM: Female, 77 years old. 3 week history of a right parietal headaches. Seasonal allergies. RADIATION DOSAGE (If Supplied By Facility): CTDIvol = ( 44.99 ) mGy, DLP = ( 779.24 ) mGycm TECHNIQUE: Transaxial CT imaging of the brain was performed without administration of intravenous contrast material. Individualized dose optimization techniques were used for this CT. COMPARISON: No relevant priors. FINDINGS: Normal soft tissue structures. Normal calvarium. Normal size ventricles and extra-axial spaces for the patient''s age. Normal white matter tracts of the cerebral hemispheres. Normal basal ganglia and thalami. Normal brainstem. Normal cerebellum. There is no intracranial hemorrhage. There are no findings of an acute ischemic infarction. Atherosclerotic plaque formation of the vertebral arteries and cavernous portions of the internal carotid arteries bilaterally. There is opacification of the left maxillary sinus. Mucosal thickening of the ethmoid sinuses and right maxillary sinus. CT/Brain/Head without Contrast IMPRESSION: Normal unenhanced CT scan of the brain. Sinusitis. Electronically Signed: Jackson Medina MD at 9:37 EDT ,
--- NOTE | 2023-05-09 08:47 | EDS_ITS ---
HPI History of Present Illness Chief Complaint: Headache Informant: patient Narrative Narrative: 77-year-old female has been having a right-sided parietal-frontal headache for the past several weeks. It eases but it has not gone away. She denies any loss of consciousness, sudden onset or thunderclap. At some point in the last 2 weeks she also noticed blood in her right eye which looks like a subconjunctival hemorrhage, she did not have any acute pain in the eye or vision changes, but she has lens implantations and so she went to see her clam dredger about it a week ago, and he told her that everything looked fine and ordered some blood work that she has not been able to get yet. She saw her doctor last night, her blood pressure was elevated but she does not know what it was, she takes blood pressure medication and is compliant with it, she was referred to the ER for reasons that are unclear right now, but the patient states it was too busy and so she came back this morning. She denies any other new symptoms such as numbness or tingling or weakness in an extremity, ataxia, she has chronic tinnitus, she has chronic allergy symptoms, states [place] in [place] with lots of animals and she is allergic to pollen and the animals and during this time of year she always has significant allergy symptoms that she has in the past month especially because of all of the pollen. She had lots of nasal congestion, she thought this was a sinus headache and/or a migraine which she also has a history of at the beginning, but she does not usually have a headache that persist this long. [facility] Medical History Adult osteomalacia Ambulates with cane Anemia Arthritis Back pain Cancer COPD (chronic obstructive pulmonary disease) Degenerative disc disease Depression Fibromyalgia Gastric reflux GERD (gastroesophageal reflux disease) Hiatal hernia High cholesterol History of irregular heartbeat History of pain when walking History of steroid therapy History of stress test HTN (hypertension) Hx of melanoma of skin Hx of Sjogren's disease Hx of temporomandibular joint syndrome Inflammatory polyarthropathy Injury of back Injury of head and neck Kidney stones Lupus Migraine headache Migraine, unspecified, intractable, without status migrainosus Narcolepsy Obstructive chronic bronchitis with exacerbation Osteoporosis Other osteoporosis Pancreatitis Positive MILIND (antinuclear antibody) Post-menopausal Rheumatoid arthritis Scoliosis Sicca syndrome with keratoconjunctivitis Sjogrens syndrome Sleep apnea Sleep apnea, obstructive Smoker 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 Wears glasses Home Medications albuterol sulfate 90 mcg/actuation aerosol inhaler (ProAir HFA) 2 puff inhalation Q6H PRN Asthma 06/17/18 [History Last Taken 08/27/18 04:30] losartan 50 mg tablet (Cozaar) 50 mg PO QHS BP 06/17/18 [History Last Taken 08/03/18] omeprazole 40 mg capsule,delayed release 20 mg PO QHS GERD 06/17/18 [History Last Taken 08/27/18 04:30] fluticasone fur. 200 mcg-umeclid 62.5 mcg-vilant 25 mcg inhalat.powder (Trelegy Ellipta) 1 inh inhalation DAILY 10/10/22 [History Last Taken Unknown] acetaminophen 500 mg tablet 1,000 mg PO Q8 PRN Pain 02/06/23 [History Last Taken Unknown] cholecalciferol (vitamin D3) 25 mcg (1,000 unit) capsule (Vitamin D3) 25 mcg PO DAILY 02/06/23 [History Last Taken Unknown] cyanocobalamin (vitamin B-12) 50 mcg tablet (Vitamin B-12) 50 mcg PO DAILY 02/06/23 [History Last Taken Unknown] montelukast 10 mg tablet 10 mg PO QHS 02/06/23 [History Last Taken Unknown] wqcffej-eubysekihesgs-yygipmrs 250 mg-250 mg-65 mg tablet (Excedrin Migraine) 2 tab PO PRN PRN Headache 02/13/23 [History Last Taken 02/13/23] cholestyramine (with sugar) 4 gram oral powder 4 g PO DAILY #348.6 grams 02/27/23 [Rx Last Taken Unknown] lactulose 20 gram/30 mL oral solution 20 g (30 mL) PO .COMPLEX #3,000 mL 04/19/23 [Rx Last Taken Unknown] levofloxacin 500 mg tablet 500 mg PO DAILY #7 tabs 05/09/23 [Rx Last Taken Unknown] Allergy/AdvReac Type Severity Reaction Status Date / Time morphine Allergy Swelling Verified 05/09/23 08:27 Penicillins Allergy unknown, Verified 05/09/23 08:27 as a kid meperidine [From Demerol] AdvReac Vomiting Verified 05/09/23 08:27 Family History Son Allergies Lupus Daughter Allergies Lupus Mother Asthma COPD (chronic obstructive pulmonary disease) CAD (coronary artery disease) Diabetes Genitourinary disease Heart disease Hypertension Father Migraine Cancer of blood vessel Diabetes Hypertension Sister Migraine Hypertension CVA (cerebral vascular accident) Surgical History History of cardiac catheterization Hx of appendectomy Hx of cholecystectomy Hx of colonoscopy Hx of esophagogastroduodenoscopy Hx of eye surgery Hx of hernia repair Hx of hysterectomy Hx of joint replacement Hx of tonsillectomy Social History Smoking Status: Current some day smoker tobacco type: cigarettes ROS ROS ED Constitutional Constitutional ED: Denies chills or fever(s) Eyes Eyes: Denies change in vision or diplopia ENT ENT ED: Reports headache(s), nasal congestion, rhinorrhea, sinus pressure and other Details: Chronic bilateral tinnitus unchanged ; Denies ear pain or sore throat Cardiovascular Cardiovascular: Denies chest pain, palpitations or paroxysmal nocturnal dyspnea Respiratory/Chest Respiratory/Chest: Reports cough; Denies dyspnea, dyspnea on exertion or paroxysmal nocturnal dyspnea Gastrointestinal Gastrointestinal: Reports nausea and vomiting; Denies abdominal pain or diarrhea Genitourinary Genitourinary ED: Denies dysuria or urinary frequency Musculoskeletal Musculoskeletal: Reports other Details: Chronic unchanged back discomfort due to scoliosis ; Denies myalgias Integumentary Denies abscess or rash Neurologic Neurologic: Reports headache(s); Denies paresthesias or weakness EXAM Physical Exam Const Vital Signs: 05/09/23 08:24 05/09/23 10:50 Temperature 97.7 F L Temperature Source Temporal Pulse Rate 73 Respiratory Rate 14 Blood Pressure 186/77 H 182/64 H Blood Pressure Mean 113 103 Pulse Ox 100 Oxygen Delivery Method Room Air Positive well nourished and well developed Constitutional Narrative: Well-appearing in no distress General Appearance ED: well developed and NAD HEENT Reports normocephalic and moist mucous membranes HEENT Narrative: Mild ethmoid sinus tenderness, no purulent nasal discharge or nasal turbinate edema. Posterior oropharynx and other oropharyngeal tissues normal. atraumatic Eyes PERRL and EOMs intact bilaterally Eyes Narrative: No significant photophobia. Resolving/improving subconjunctival hemorrhage on the right without hyphema or obvious corneal abnormality. No sign of conjunctivitis. No periorbital swelling/ecchymosis. No periorbital erythema or tenderness. Neck no lymphadenopathy, supple and no meningeal signs Resp normal respiratory effort and clear to auscultation bilaterally GI non-tender and non-distended Palpation: soft Extremity normal to inspection and full ROM Neuro oriented x3 and CN's II-XII intact bilaterally Neuro Narrative: Normal gait Sensorium / Orientation: awake and alert Speech: speech normal Gait (Neuro): normal gait Motor Exam: strength 5/5 throughout Psych mental status grossly normal Skin Lesions: no lesions Rashes: no rashes MDM MDM MDM Narrative Medical decision making narrative: I ordered the labs that the patient was supposed to get as an outpatient at her request. This also help to evaluate for other pathology, such as thrombocytopenia, DIC, temporal arteritis which I had a very low suspicion of clinically since she has no temporal artery tenderness/pain, and hyperparathyro idism/hypercalcemia, and all of those test were unremarkable. I did obtain a CT of her head, it showed no acute vascular pathology or radiographically visible mass, I reviewed the images and agree with the radiologist's interpretation. It did show maxillary and ethmoid sinusitis. The patient does have allergies. It is possible she could get a bacterial superinfection, I am going to treat her f or both possibilities, given Decadron 8 mg here in addition to a prescription for antibiotic. I rechecked her blood pressure initially was 186/77, on recheck it is 182/64 and this was 2 hours later unclear if that is causing any of the symptoms, I recommend rechecking with her doctor, and continuing her medications for now and no emergent treatment of this number is indicated. Lab Data Attestation: I reviewed the patient's lab results. Labs: Laboratory Results - last 24 hr 05/09/23 05/09/23 05/09/23 08:55 08:55 08:55 WBC 10.2 RBC 4.46 Hgb 12.8 Hct 40.8 MCV 91.5 MCH 28.7 MCHC 31.4 L RDW Std Deviation 49.8 H RDW Coeff of Levi 14.8 H Plt Count 191 MPV 10.1 Immature Gran % (Auto) 0.400 Neut % (Auto) 38.4 L Lymph % (Auto) 52.4 H [place] % (Auto) 4.7 Eos % (Auto) 3.2 Baso % (Auto) 0.9 Absolute Neuts (auto) 3.9 Absolute Lymphs (auto) 5.34 H Nucleated RBC % 0 Differential Comment COMMENT ESR 17 Fibrinogen 383 Sodium 138 Potassium 4.5 Chloride 113 H Carbon Dioxide 23.0 Anion Gap 2 L BUN 23 H Creatinine 0.67 Estim Creat Clear Calc 38.44 Est GFR (MDRD) Af Amer 110 Est GFR (MDRD) Non-Af 91 BUN/Creatinine Ratio 34.3 H Glucose 97 Calcium 8.5 C-React Prot Ext Range < 2.90 Radiography Diagnostic Testing: Clinical Impression(s) from Imaging Studies Brain CT 05/09/23 08:46 IMPRESSION: Normal unenhanced CT scan of the brain. Sinusitis. Electronically Signed: Jackson Medina MD at 9:37 EDT , Discharge Plan Triage Chief Complaint: Headache ED Provider: Sony Hernández Dx/Rx/DC Orders Clinical Impression: Acute ethmoidal sinusitis, Acute seasonal allergic rhinitis, Episode of hypertension, Non-traumatic subconjunctival hemorrhage of right eye Instructions: ED Sinusitis (Antibiotic Treatment), ED Subconjunctival Hemorrhage Prescriptions: New levofloxacin 500 mg tablet 500 mg PO DAILY Qty: 7 0RF No Action losartan [Cozaar] 50 mg tablet 50 mg PO QHS omeprazole 40 mg capsule,delayed release(DR/EC) 20 mg PO QHS albuterol sulfate [ProAir HFA] 90 mcg/actuation HFA aerosol inhaler 2 puff INHALATION Q6H PRN (Reason: Asthma) Trelegy Ellipta 200-62.5-25 mcg blister with device 1 inh inhalation DAILY cholestyramine (with sugar) 4 gram powder 4 g PO DAILY Qty: 348.6 0RF Rx Instructions: administer w/meal; avoid other meds within 1hr before or 4-6hr after dose Vitamin B-12 50 mcg Tablet 50 mcg PO DAILY montelukast 10 mg tablet 10 mg PO QHS cholecalciferol (vitamin D3) [Vitamin D3] 25 mcg (1,000 unit) Capsule 25 mcg PO DAILY acetaminophen 500 MG tablet 1,000 mg PO Q8 PRN (Reason: Pain) Excedrin Migraine 250-250-65 mg Tablet 2 tab PO PRN PRN (Reason: Headache) lactulose 20 gram/30 mL solution 20 g PO .COMPLEX Qty: 3000 0RF Rx Instructions: 20 grams orally 1-2x per day Primary Care Provider: Destini Bustamnate Referrals: Destini Bustamante MD [Primary Care Provider] - (Call for follow-up appointment primarily for blood pressure reevaluation and management) Disposition Disposition: Home, Self Care
[2023-05-09 09:19] LABS: Erythrocyte Sedimentation Rate 17 mm/hr (0-30)
[2023-05-09 09:20] LABS: Fibrinogen 383 mg/dl (203-444)
[2023-05-09 09:21] LABS: Absolute Lymphocyte Count 5.34 X10^3/uL (0.83-4.51); Absolute Neutrophil Count 3.9 X10^3/uL (2.0-7.7); Basophil# 0.09 X10^3/uL; Basophil% 0.9 % (0-1); Eosinophil# 0.33 X10^3/uL; Eosinophils% 3.2 % (0-5); Hematocrit 40.8 % (37-47); Hemoglobin 12.8 g/dL (12.0-15.0); Lymphocyte # 5.34 X10^3/ul (0.83-4.51); Lymphocyte % 52.4 % (19-41); Mean Corp Hgb Conc 31.4 g/dL (32-36); Mean Corpuscular Hgb 28.7 pg (27.0-32.0); Mean Corpuscular Volume 91.5 fL (81-99); Mean Platelet Vol. 10.1 fl (6.2-12.0); Monocyte# 0.48 X10^3/uL; Monocyte% 4.7 % (0-10); NRBC Flagged by Analyzer 0 % (0-5); Neutrophil # 3.92 X10^3/uL (2.7-7.7); Neutrophil % 38.4 % (47-70); POSITIVE DIFFERENTIAL YES; POSITIVE MORPHOLOGY YES; Platelet Count 191 K/mm3 (150-450); RBC Distribution Width CV 14.8 % (11.6-14.6); RBC Distribution Width SD 49.8 fl (35.1-43.9); Red Blood Count 4.46 M/mm3 (4.2-5.4); White Blood Count 10.2 K/mm3 (4.4-11.0)
[2023-05-09 09:22] LABS: Anion Gap 2 (5-15); BUN 23 mg/dL (7-18); BUN/Creat Ratio 34.3 RATIO (10-20); CRP < 2.90 mg/L (0.0-3.0); Calcium,Total 8.5 mg/dL (8.5-10.1); Chloride 113 mmol/L (98-107); Creatinine, Serum 0.67 mg/dL (0.55-1.02); EST Glomerular Filtration Rate 91 mL/min (>60); Est Glom Filt Rate - Afr Amer 110 mL/min (>60); Estimated Creatinine Clearance 38.44 ml/min; Glucose 97 mg/dL (74-106); Potassium 4.5 mmol/L (3.5-5.1); Sodium Level 138 mmol/L (136-145)
[2023-05-09 09:23] LABS: Differential Indicated SCAN CRITERIA MET
[2023-05-09 10:50] VITALS: BP 182/64
[2023-05-09] MEDS: dexAMETHasone 4 MG Tablet 8 MG PO (11:03)
[2023-05-09 11:04] VITALS: RESP 16
== END 2023-05-09 11:05 | disposition home or self-care (01) ==
PROVIDERS: Emergency Provider Emergency Medicine; PCP Internal Medicine; Visit Provider Emergency Medicine
DX: J01.20 Acute ethmoidal sinusitis, unspecified (principal); M06.9 Rheumatoid arthritis, unspecified; J30.9 Allergic rhinitis, unspecified; H11.31 Conjunctival hemorrhage, right eye; G47.33 Obstructive sleep apnea (adult) (pediatric); F17.210 Nicotine dependence, cigarettes, uncomplicated
CPT/HCPCS: 70450; 80048; 85025; 85384; 85652; 86140; 99284; A4216

== ENCOUNTER → 2025-05-17 | Outpatient (CLI) | payer MEDICARE, SELFPAY ==
[2025-05-19 07:07] LABS: Calprotectin, Stool 786 ug/g (0-120)
[2025-05-19 08:09] LABS: Pancreatic Elastase, Fecal > 800 (>200)
== END | disposition home or self-care (01) ==
PROVIDERS: PCP Internal Medicine
DX: K55.1 Chronic vascular disorders of intestine (principal); R10.13 Epigastric pain; K86.81 Exocrine pancreatic insufficiency
CPT/HCPCS: 82653; 83993

== ENCOUNTER → 2025-05-26 | Outpatient (CLI) | payer MEDICARE, SELFPAY ==
--- NOTE | 2025-05-26 14:39 | CT_ITS ---
PROCEDURE: ABDOMEN/PELVIS WITH CONTRAST 05/26/2025 REASON FOR EXAM: SMA SYNDROME TECHNIQUE: ABDOMEN/PELVIS WITH CONTRAST Coronal and Sagittal reconstruction series were provided. CONTRAST: Isovue 300 VOLUME: 99 mL One or more dose reduction techniques were used (e.g., Automated exposure control, adjustment of the mA and/or kV according to patient size, use of iterative reconstruction technique. RADIATION DOSE SUMMARY: CTDlvol: 36 mGy DLP: 884 mGycm COMPARISON: No FINDINGS: Dependent atelectasis. Normal heart size. Mildly enlarged liver. Status post cholecystectomy. Unremarkable pancreas. Splenic enlargement, 19 cm length. Normal adrenal glands and kidneys. No hydronephrosis. Normal bladder. Status post hysterectomy. No retroperitoneal or pelvic adenopathy. No free air. Nonobstructed bowel. No acute large bowel findings. Status post bilateral THR. Lumbar spine scoliosis and degeneration. Status post ventral hernia repair. The proximal SMA is thrombosed, series 602 images 76/81, for distance of approximately 3 cm, with more distal reconstitution. CT/Abdomen/Pelvis WITH Contrast IMPRESSION: Proximal SMA is thrombosed for distance or proximally 3 cm. This is likely on a chronic basis. Medical liver disease and splenic enlargement, the patient probably has portal venous hypertension. Reading [facility]
== END | disposition home or self-care (01) ==
PROVIDERS: PCP Internal Medicine
DX: K55.1 Chronic vascular disorders of intestine (principal); R10.13 Epigastric pain
CPT/HCPCS: 74177; Q9967; A4216

== ENCOUNTER 2025-06-18 16:20 | Emergency (ER) | payer MEDICARE, SELFPAY ==
[2025-06-18 16:20] VITALS: BP 181/65; PULSE 72; RESP 16; TEMP 36.9; O2SAT 99; BMI 25.2
--- NOTE | 2025-06-18 17:53 | ED.VIS.GI ---
HPI HPI - GI History of Present Illness Chief Complaint: Abd Pain Informant: patient Narrative Narrative: Patient is 79-year-old female with relatively complex medical history including rheumatoid arthritis, Sjogren's disease, superior mesenteric artery syndrome, IBS, splenomegaly, lupus, portal venous thrombosis, heavy tobacco use and peripheral vascular disease requiring stent in her left groin presenting with left-sided abdominal pain. States she recently had a CT and found out that her spleen is 3 times the size it supposed to be. She does have a past day or 2 she has been having worsening pain in the left side of her abdomen. She states is a like a pulling sensation from underneath her ribs into her left groin. States it is worse when she eats and worse when she stands. Does report history of severe chronic back pain as well as scoliosis. Notes that she has chronic postprandial abdominal pain on the left and because that she only eats once a day in the evening. She notes that in January of this year they did attempt to place a stent in her SMA with this was unsuccessful. She was told that she has collaterals. Follow-up to the [facility] as well as through Dr. BillingsleyGI here. She has a mild chronic nausea. Denies any vomiting. States she has chronic urge incontinence denies any change in urination. States she had a small bowel movement yesterday morning denies any edmond blood in her stool. Denies any fevers. Reports a fullness sensation in her left abdomen. [facility] Medical History BEVERLEY (obstructive sleep apnea) Wears glasses Post-menopausal Cancer History of steroid therapy Ambulates with cane Rheumatoid arthritis Arthritis Kidney stones High cholesterol Back pain Injury of back Injury of head and neck Smoker Hx of Sjogren's disease Scoliosis History of pain when walking History of stress test Hx of melanoma of skin History of irregular heartbeat Hx of temporomandibular joint syndrome 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 Sjogrens syndrome Sicca syndrome with keratoconjunctivitis Positive MILIND (antinuclear antibody) Pancreatitis Obstructive chronic bronchitis with exacerbation Narcolepsy Migraine, unspecified, intractable, without status migrainosus Inflammatory polyarthropathy Hiatal hernia Fibromyalgia Depression Degenerative disc disease Anemia Adult osteomalacia GERD (gastroesophageal reflux disease) Osteoporosis Lupus HTN (hypertension) COPD (chronic obstructive pulmonary disease) Home Medications ?Medication ?Instructions ?Recorded ?Last Taken ?Type albuterol sulfate 90 mcg/actuation 2 puff inhalation Q6H PRN Asthma 06/17/18 08/27/18 04:30 History aerosol inhaler (ProAir HFA) [id number] 250 2 tab PO PRN PRN Headache 02/13/23 02/13/23 History mg-250 mg-65 mg tablet (Excedrin Migraine) fluticasone fur. 100 mcg-umeclid 1 inh inhalation DAILY 08/30/23 Unknown History 62.5 mcg-vilant 25 mcg inhalat.powder (Trelegy Ellipta) losartan 50 mg tablet (Cozaar) 50 mg PO DAILY BP 08/30/23 Unknown History aspirin 325 mg capsule 325 mg PO BID 06/18/25 Unknown History gabapentin 300 mg capsule 300 mg PO QHS 06/18/25 Unknown History omeprazole 40 mg capsule,delayed 40 mg PO BID 06/18/25 Unknown History release rosuvastatin 40 mg tablet 40 mg PO QHS 06/18/25 Unknown History sucralfate 1 gram tablet 1 g PO 4X/DAY 06/18/25 Unknown History sulfamethoxazole 800 1 tab PO Q12H 5 days #10 tabs 06/18/25 Unknown Rx mg-trimethoprim 160 mg tablet (Bactrim DS) Allergy/AdvReac Type Severity Reaction Status Date / Time milk Allergy Unknown Unknown Verified 06/18/25 16:20 morphine Allergy Swelling Verified 06/18/25 16:20 Penicillins Allergy unknown, Verified 06/18/25 16:20 as a kid meperidine (From Demerol) AdvReac Vomiting Verified 06/18/25 16:20 Family History Son Allergies Lupus Daughter Allergies Lupus Mother Asthma COPD (chronic obstructive pulmonary disease) CAD (coronary artery disease) Diabetes Genitourinary disease Heart disease Hypertension Father Migraine Cancer of blood vessel Diabetes Hypertension Sister Migraine Hypertension CVA (cerebral vascular accident) Surgical History H/O vascular surgery History of arthroplasty History of nasal septoplasty History of bilateral cataract extraction History of cardiac catheterization Hx of appendectomy Hx of hysterectomy Hx of tonsillectomy Hx of joint replacement Hx of hernia repair Hx of esophagogastroduodenoscopy Hx of colonoscopy Hx of cholecystectomy Social History Smoking Status: Current some day smoker tobacco type: cigarettes alcohol intake: never substance use type: does not use ROS ROS ED Constitutional Constitutional ED: Denies chills or fever(s) Cardiovascular Cardiovascular: Denies chest pain Respiratory/Chest Respiratory/Chest: Denies cough or dyspnea Gastrointestinal Gastrointestinal: Reports abdominal pain, diarrhea and nausea; Denies vomiting Genitourinary Genitourinary ED: Reports urinary frequency and other Details: urgency ; Denies dysuria or hematuria Musculoskeletal Musculoskeletal: Reports back pain Integumentary Denies rash Neurologic Neurologic: Reports weakness Hematologic/Lymphatic Hematologic/Lymphatic: Denies easy bleeding or easy bruising EXAM Physical Exam Const Vital Signs: 06/18/25 16:20 06/18/25 18:20 06/18/25 20:00 Temperature 98.4 F Temperature Source Oral Pulse Rate 72 79 67 Respiratory Rate 16 16 16 Blood Pressure 181/65 H 160/63 H 184/76 H Blood Pressure Mean 103 95 112 Pulse Ox 99 100 100 Oxygen Delivery Method Room Air Room Air Room Air Positive well nourished and well developed General Appearance ED: well developed and NAD; Negative for pallor HEENT Reports moist mucous membranes Neck supple and no JVD Resp normal respiratory effort and clear to auscultation bilaterally Cardio regular rate, regular rhythm and no murmurs GI non-distended Palpation: soft and tender LLQ and suprapubic; Negative for guarding or rigid Back/Spine no CVA tenderness Extremity full ROM General Extremety ED: Negative for edema General Extremity: Negative for edema Neuro moves all extremities Sensorium / Orientation: alert, oriented to person, oriented to place and oriented to time Motor Exam: Negative for general weakness Psych mental status grossly normal and thought process normal Skin no wounds General Skin Exam: Negative for jaundice or pallor MDM MDM MDM Narrative Medical decision making narrative: patient is evaluated for worsening left-sided abdominal pain over the last day and a half. Notes that she has had pain on the left side for 4 years but it is worsened. She also recently found out about an enlarged spleen and is quite nervous about this. Some chronic urinary symptoms not sure if there is been any acute change in them. No report of fevers. Differential includes acute vascular abnormality of her splenic vein, splenic rupture/laceration (lower suspicion given no report of trauma and she is hemodynamically stable), pyelonephritis, renal colic, urinary tract infection, bowel obstruction (lower sufficient given no report of vomiting or diarrhea). Workup including CBC, BMP, liver panel, lipase and urinalysis is obtained. CBC largely normal. No leukocytosis present or left shift. BMP also normal with normal kidney function. Liver enzymes largely normal. She is of a mild elevation of her alkaline phosphatase however this appears chronic and stable. Lipase is normal. Urinalysis is concerning with for UTI with positive nitrites and 3+ bacteria. Will send for culture as she does have suprapubic tenderness on exam it is possible she could have a developing UTI which is why she is having these worsening symptoms over the past few days. Suspicion for pyelonephritis given no leukocytosis, fever or CVA tenderness. 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 Patient restarted on Bactrim, urine culture pending. Given return precautions. She is comfortable with this plan of care. Encouraged to continue to follow-up with GI. Discharged home in stable condition. Lab Data Attestation: I reviewed the patient's lab results. Labs: Laboratory Results - last 24 hr 06/18/25 06/18/25 17:45 17:48 WBC 8.5 RBC 4.58 Hgb 12.1 Hct 37.8 MCV 82.5 MCH 26.4 L MCHC 32.0 RDW Std Deviation 49.8 H RDW Coeff of Levi 16.8 H Plt Count 155 MPV 11.4 Immature Gran % (Auto) 0.400 Neut % (Auto) 42.9 L Lymph % (Auto) 50.1 H Gates % (Auto) 3.5 Eos % (Auto) 2.6 Baso % (Auto) 0.5 Absolute Neuts (auto) 3.7 Absolute Lymphs (auto) 4.25 Nucleated RBC % 0 Differential Comment SCANNED Reactive Lymphocytes 1+ Sodium 141 Potassium 3.9 Chloride 106 Carbon Dioxide 25.2 Anion Gap 10 BUN 11 Creatinine 0.54 L Estim Creat Clear Calc 51.22 Est GFR (MDRD) Non-Af 95 BUN/Creatinine Ratio 21.3 H Glucose 83 Calcium 9.7 Total Bilirubin 0.38 AST 17 ALT 12 Alkaline Phosphatase 114 H Total Protein 7.0 Albumin 4.1 Globulin 2.9 Albumin/Globulin Ratio 1.4 Lipase 22 Urine Color Yellow Urine Clarity Clear Urine pH 6.0 Ur Specific Maxwell 1.010 Urine Protein 30 H Urine Glucose (UA) Normal Urine Ketones Negative Urine Occult Blood 25 H Urine Nitrite Positive H Urine Bilirubin Negative Urine Urobilinogen Normal Ur Leukocyte Esterase Negative Urine RBC 0 SEEN Urine WBC 0-5 SEEN Ur Squamous Epith Cells 0 SEEN Urine Bacteria 3+ Urine Mucus 0 SEEN Radiography Diagnostic Testing: Clinical Impression(s) from Imaging Studies Abdomen/Pelvis CTA 06/18/25 18:09 IMPRESSION: The angiographic findings are similar to the prior study specifically referring to thrombosis of the proximal superior mesenteric artery. Splenomegaly is again noted. Delayed images were not performed to assess the splenic vein [facility] Discharge Plan Triage Chief Complaint: Abd Pain ED Provider: Chiquita Haro Dx/Rx/DC Orders Clinical Impression: Urinary tract infection, Superior mesenteric artery syndrome, Splenomegaly, Left sided abdominal pain Instructions: ED Abdominal Pain Unkn Cause Fem, ED Cystitis Female Adult Prescriptions: New sulfamethoxazole-trimethoprim [Bactrim DS] 800-160 mg tablet 1 tab PO Q12H 5 Days Qty: 10 0RF No Action albuterol sulfate [ProAir HFA] 90 mcg/actuation HFA aerosol inhaler 2 puff INHALATION Q6H PRN (Reason: Asthma) losartan [Cozaar] 50 mg tablet 50 mg PO DAILY Trelegy Ellipta 100-62.5-25 mcg blister with device 1 inh inhalation DAILY Patient Comments: INHALE 1 PUFF ONCE DAILY Excedrin Migraine 250-250-65 mg Tablet 2 tab PO PRN PRN (Reason: Headache) gabapentin 300 mg capsule 300 mg PO QHS rosuvastatin 40 mg tablet 40 mg PO QHS aspirin 325 mg capsule 325 mg PO BID omeprazole 40 mg capsule,delayed release(DR/EC) 40 mg PO BID sucralfate 1 gram tablet 1 g PO 4X/DAY Primary Care Provider: Destini Bustamante Referrals: Destini Bustamante MD [Primary Care Provider] - Activity Restrictions/Additional Instructions: Please continue to follow-up with GI. Your blood flow to your abdominal organs and your spleen appear stable. Your liver enzymes are all normal/stable. There is no acute change in your workup today compared to your prior labs in our system. You do have what appears to be a urinary tract infection and started on antibiotics for this. If you develop fever, worsening symptoms or further concerns please return to the emergency room. Print Language: Japanese Disposition Disposition: Home, Self Care
[2025-06-18 18:00] LABS: Mucous, Urine 0 SEEN /hpf (<or=2+); Red Blood Cells-Urine 0 SEEN /hpf (0-5); Squamous Epithelial Cells - UA 0 SEEN /hpf (5-10)
[2025-06-18 18:01] LABS: Color, Urine Yellow (Yellow); Glucose, Dipstick Normal (Normal); Ketone-Dipstick Negative (Negative); Leukocyte Esterase-Dipstick Negative /ul (Negative); Nitrite-Dipstick Positive (Negative); Occult Blood-Urine 25 /ul (Negative); Protein-Dipstick 30 mg/dl (Negative); Specific Gravity, Urine 1.010 (1.002-1.030); Urine Bilirubin Dipstick Negative (Negative)
--- NOTE | 2025-06-18 18:09 | CT_ITS ---
PROCEDURE: CTA ABD/PELVIS W/WO CONTRAST 06/18/2025 REASON FOR EXAM: LEFT SIDED ABD PAIN, HX OF SMA SYNDROME AND PVT TECHNIQUE: CTA ABD/PELVIS W/WO CONTRAST Multiplanar Sagittal and Coronal images were obtained. Three-dimensional reconstructions CONTRAST: 100 VOLUME: Isovue-300 mL One or more dose reduction techniques were used (e.g., Automated exposure control, adjustment of the mA and/or kV according to patient size, use of iterative reconstruction technique). RADIATION DOSE SUMMARY: CTDlvol: 42 mGy DLP: 417 mGycm COMPARISON: 05/26/2025 FINDINGS: The lung bases remain clear. There is a lumbar scoliosis present. The spleen is significantly enlarged. The gallbladder is surgically absent. No liver masses are identified. The left and right kidney demonstrate no mass or hydronephrosis. No pancreatic mass or adjacent inflammation is identified. No aortic aneurysm or dissection. As on the prior study, there is occlusion of the proximal SMA with some reconstitution distally via collaterals. There is atherosclerotic plaque at the origin of the celiac artery. There is calcified plaque at the origin of each renal artery. The inferior mesenteric artery is patent. The iliac arteries are patent. Evaluation of the pelvis limited by bilateral hip arthroplasties resulting in streak artifact. There is no bowel obstruction. There is no free air or free fluid. CT/CTA Abd/Pelvis W/WO Contrast IMPRESSION: The angiographic findings are similar to the prior study specifically referring to thrombosis of the proximal superior mesenteric artery. Splenomegaly is again noted. Delayed images were not performed to ass ess the splenic vein Reading Location: [facility]
[2025-06-18 18:20] VITALS: BP 160/63; PULSE 79; RESP 16; O2SAT 100
[2025-06-18 18:35] LABS: AST(SGOT) 17 U/L (<=31); Alanine Aminotransfer ALT/SGPT 12 U/L (<=34); Albumin, Serum 4.1 g/dL (3.4-4.8); Alkaline Phosphatase 114 U/L (35-104); Anion Gap 10 (5-15); BUN 11 mg/dL (4-19); BUN/Creat Ratio 21.3 RATIO (10-20); Calcium,Total 9.7 mg/dL (7.6-11.0); Carbon Dioxide 25.2 mmol/L (21.0-32.0); Chloride 106 mmol/L (98-108); Estimated Creatinine Clearance 51.22 ml/min (50-250); Globulin 2.9 g/dL (2.2-4.2); Glucose 83 mg/dL (70-99); Lipase 22 U/L (13-75); Potassium 3.9 mmol/L (3.3-5.1)
[2025-06-18 18:54] LABS: Hematocrit 37.8 % (37-47); Hemoglobin 12.1 g/dL (12.0-15.0); Immature Granulocytes Count 0.030 X10^3/uL (0.0-0.0); Mean Corp Hgb Conc 32.0 g/dL (32-36); Mean Corpuscular Volume 82.5 fL (81-99); Mean Platelet Vol. 11.4 fl (6.2-12.0); NRBC Flagged by Analyzer 0 % (0-5); POSITIVE MORPHOLOGY YES; Platelet Count 155 K/mm3 (150-450); RBC Distribution Width CV 16.8 % (11.6-14.6); RBC Distribution Width SD 49.8 fl (35.1-43.9); Red Blood Count 4.58 M/mm3 (4.2-5.4); White Blood Count 8.5 K/mm3 (4.4-11.0)
[2025-06-18 18:55] LABS: Differential Indicated SCAN CRITERIA MET
[2025-06-18 19:19] LABS: Differential Comment SCANNED; Reactive Lymphocyte 1+
[2025-06-18 20:00] VITALS: BP 184/76; PULSE 67; RESP 16; O2SAT 100
[2025-06-18] MEDS: Smz/Tmp Ds Tablet 1 TABLET PO (20:40)
[2025-06-18 21:03] VITALS: BP 191/66; PULSE 80; RESP 16; TEMP 36.7; O2SAT 96
--- NOTE | 2025-06-18 21:07 | ED.RN ---
Notified MD of elevated BP at discharge, pt states that she usually takes her BP meds @ [facility] and has not taken yet today but will take as soon as she gets home. okay with this and to continue with dc.
== END 2025-06-18 21:08 | disposition home or self-care (01) ==
PROVIDERS: Emergency Provider Emergency Medicine; PCP Internal Medicine; Visit Provider Emergency Medicine
DX: N39.0 Urinary tract infection, site not specified (principal); J44.9 Chronic obstructive pulmonary disease, unspecified; M32.9 Systemic lupus erythematosus, unspecified; R16.1 Splenomegaly, not elsewhere classified; F17.210 Nicotine dependence, cigarettes, uncomplicated; I10 Essential (primary) hypertension; M79.7 Fibromyalgia; E78.00 Pure hypercholesterolemia, unspecified; M41.9 Scoliosis, unspecified; G47.33 Obstructive sleep apnea (adult) (pediatric); Z79.82 Long term (current) use of aspirin; Z79.51 Long term (current) use of inhaled steroids; Z79.899 Other long term (current) drug therapy
CPT/HCPCS: 74174; 80053; 81001; 83690; 85025; 87077; 87086; 87088; 87186; 99282; Q9967; A4216

== ENCOUNTER → 2025-08-09 | Outpatient (CLI) | payer MEDICARE, SELFPAY ==
[2025-08-09 15:00] LABS: Hematocrit 36.6 % (37-47); Hemoglobin 11.8 g/dL (12.0-15.0); Immature Granulocytes Count 0.010 X10^3/uL (0.0-0.0); Mean Corp Hgb Conc 32.2 g/dL (32-36); Mean Corpuscular Volume 86.3 fL (81-99); Mean Platelet Vol. 10.4 fl (6.2-12.0); NRBC Flagged by Analyzer 0 % (0-5); POSITIVE MORPHOLOGY YES; Platelet Count 163 K/mm3 (150-450); RBC Distribution Width CV 16.9 % (11.6-14.6); RBC Distribution Width SD 52.9 fl (35.1-43.9); Red Blood Count 4.24 M/mm3 (4.2-5.4); White Blood Count 7.3 K/mm3 (4.4-11.0)
[2025-08-09 15:22] LABS: Differential Indicated SCAN CRITERIA MET
[2025-08-09 15:25] LABS: Reactive Lymphocyte 2+
[2025-08-09 16:17] LABS: Prothrombin Time (Protime)PT. 13.2 SECONDS (11.7-14.9)
[2025-08-09 16:19] LABS: Hepatitis B Surface Antigen Nonreactive (Nonreactive); Hepatitis C Antibody Nonreactive (Nonreactive)
[2025-08-09 16:25] LABS: AST(SGOT) 17 U/L (<=31); Alanine Aminotransfer ALT/SGPT 12 U/L (<=34); Albumin, Serum 4.2 g/dL (3.4-4.8); Alkaline Phosphatase 127 U/L (35-104); Anion Gap 13 (5-15); BUN 16 mg/dL (4-19); BUN/Creat Ratio 29.1 RATIO (10-20); Bilirubin, Direct 0.20 mg/dL (0.00-0.30); Calcium,Total 9.4 mg/dL (7.6-11.0); Carbon Dioxide 22.6 mmol/L (21.0-32.0); Chloride 104 mmol/L (98-108); Globulin 3.0 g/dL (2.2-4.2); Glucose 83 mg/dL (70-99); Potassium 3.7 mmol/L (3.3-5.1)
[2025-08-11 16:09] LABS: Anti-Smooth Muscle ABS 18 Units (0-19); GGTP 16 IU/L (0-60); Immunoglobulin A 195 mg/dL (64-422)
[2025-08-12 08:09] LABS: ANTINUCLEAR ANTIBODIES DIRECT Positive (Negative); Anti-Chromatin <0.2 AI (0.0-0.9); Anti-Jo <0.2 AI (0.0-0.9); Anti-dsDNA Ab <1 IU/mL (0-9); SJOGREN'S Anti-SS-A test 1.0 AI (0.0-0.9); SJOGREN'S Anti-SS-B test < 0.2 AI (0.0-0.9)
== END | disposition home or self-care (01) ==
LOC: LAB 14:21
PROVIDERS: PCP Internal Medicine; Referring Provider Nurse Practitioner Acute Care; Visit Provider Nurse Practitioner Acute Care
DX: R16.2 Hepatomegaly with splenomegaly, not elsewhere classified (principal); K74.60 Unspecified cirrhosis of liver; R19.7 Diarrhea, unspecified; R10.9 Unspecified abdominal pain; K59.01 Slow transit constipation
CPT/HCPCS: 36415; 80048; 80076; 82105; 82390; 82784; 82977; 83516; 85025; 85610; 86038; 86225; 86235; 86704; 86706; 86708; 86803; 87340

== ENCOUNTER → 2025-08-16 | Outpatient (CLI) | payer MEDICARE, SELFPAY ==
--- NOTE | 2025-08-16 15:50 | RAD_ITS ---
PROCEDURE: ABDOMEN SINGLE VIEW 08/16/2025 REASON FOR EXAM: DAY 3 SITZ MARKER TECHNIQUE: Procedure Code: RADABD Modality: DX Procedure: ABDOMEN SINGLE VIEW COMPARISON: Abdominal CT 06/18/2025. FINDINGS: Multiple small ingested radiopaque rings are seen within the lower abdomen/pelvis. Nonobstructive bowel gas pattern. No discernible free air. No unusual calcific densities are seen. Imaged lung bases are clear. Moderate multilevel degenerative changes of the spine with S-shaped thoracolumbar scoliosis. Surgical clips in the right abdomen likely related to cholecystectomy. Bilateral hip arthroplasties. Right femoral vascular stent. RAD/Abdomen Single View IMPRESSION: Multiple ingested radiopaque rings within the lower abdomen/pelvis. Nonobstruc tive gas pattern. Reading Location: [facility]
== END | disposition home or self-care (01) ==
LOC: RAD 15:37
PROVIDERS: PCP Internal Medicine; Referring Provider Nurse Practitioner Acute Care; Visit Provider Nurse Practitioner Acute Care
DX: R10.9 Unspecified abdominal pain (principal); R16.2 Hepatomegaly with splenomegaly, not elsewhere classified; R19.7 Diarrhea, unspecified; K59.01 Slow transit constipation
CPT/HCPCS: 74018

== ENCOUNTER → 2025-08-18 | Outpatient (CLI) | payer MEDICARE, SELFPAY ==
--- NOTE | 2025-08-18 15:00 | RAD_ITS ---
PROCEDURE: ABDOMEN SINGLE VIEW 08/18/2025 REASON FOR EXAM: DAY 5 SITZ MARKER TECHNIQUE: Procedure Code: RADABD Modality: DX Procedure: ABDOMEN SINGLE VIEW COMPARISON: Previous examination dated 08/16/2025 FINDINGS: Bowel gas: Multiple Sitz markers present in the descending colon and sigmoid colon. These have decreased in number since previous exam. On today's exam there are 11 Sitz roberts present in the pelvis. Moderate amount of stool in the colon. Calcifications: Vascular calcifications. Bones: Bilateral hip arthroplasties. No acute fracture. Scoliosis and multilevel spondylosis of the spine. Other: Lung bases are clear. RAD/Abdomen Single View IMPRESSION: Slight interval decrease in the amount of Sitz roberts in the pelvis with persist ent constipation. Reading Location: [id number]
[2025-08-21 23:07] LABS: Calprotectin, Stool 329 ug/g (0-120)
== END | disposition home or self-care (01) ==
LOC: RAD 14:51
PROVIDERS: PCP Internal Medicine; Referring Provider Nurse Practitioner Acute Care; Visit Provider Nurse Practitioner Acute Care
DX: R19.7 Diarrhea, unspecified (principal); R10.9 Unspecified abdominal pain; R16.2 Hepatomegaly with splenomegaly, not elsewhere classified; K59.01 Slow transit constipation
CPT/HCPCS: 74018; 83993

== ENCOUNTER 2025-09-15 06:25 | Day surgery (SDC) | payer MEDICARE, SELFPAY ==
--- NOTE | 2025-09-13 12:17 | PAT.ANESEVAL ---
Pre-Assessment Diagnosis/Proposed Procedure Planned Operative Procedure(s): COLONOSCOPY Anesthesia History Anesthesia History - waste baler: Anesthesia History - waste baler Hx Hospitalization No 09/13/25 11:23 Any Problems With Anesthesia Yes: HARD TIME WAKING 09/13/25 11:23 Cholinesterase deficiency No 09/13/25 11:23 You/Your Family Experience No 09/13/25 11:23 fever (hyperthermia) with Relationship Recent Exposure to Contagious No 02/13/23 10:02 Disease Does patient have nerve No 09/13/25 11:23 stimulator Patient instructed to have device shut off --Does patient have Pacemaker or ICD? When Was Last Pacemaker Check QUESTION #4 FULL TEXT: You/Your Family Experience fever (hyperthermia) with Anesthesia Last Oral Intake Last Oral intake: Last Oral Intake NPO since Meds taken in AM with sips of water? Meds patient instructed to take am of surgery PONV PONV - waste baler: PONV - waste baler Female Yes 09/13/25 11:23 HX of Motion Sickness No 09/13/25 11:23 HX of N/V After Surgery No 09/13/25 11:23 Non-Smoker No 09/13/25 11:23 Duration of Surgery greater No 09/13/25 11:23 than 60 minutes Number of Risk Factors 1 09/13/25 11:23 PONV Score Low Risk 09/13/25 11:23 Height & Weight Height & Weight: Anesthesia: Height & Weight Height 5 ft 2 in 08/16/25 07:36 Respiratory Assessment Respiratory Assessment - waste baler: Respiratory Tract Infection Hx - waste baler Hx Respiratory Tract Infection No 09/13/25 11:23 STOP Sleep Apnea STOP Sleep Apnea - waste baler: STOP Sleep Apnea - waste baler Hx Hypertension Yes: STATES CONTROLLED WITH 09/13/25 11:23 MED Hx Sleep Apnea Yes: NO MACHINE 09/13/25 11:23 CPAP No 09/13/25 11:23 BIPAP No 09/13/25 11:23 Do you snore loudly (louder than talking or can be heard Do you often feel tired/ fatigued/ sleepy during daytime? Has anyone observed you stop breathing during sleep? STOP Results Positive 09/13/25 11:23 QUESTION #5 FULL TEXT : Do you snore loudly (louder than talking or can be heard through closed doors)? 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 Specify any problems Hx of Preganancy in last 3 No 09/13/25 11:23 Months Nurse Filling Out Transfusion VCHRISTIN 09/13/25 11:23 & Questions: Date: 09/13/25 09/13/25 11:23 Time: 11:24 09/13/25 11:23 Patient unable to answer at this time (ie. confused, unrespo /Reproduction History /Reproductive History - waste baler: /Reproductive Hx- waste baler Hx Now No 09/13/25 11:23 Gestational Age (in weeks): EDC: Hx Hx Para Hx Section SAB No 09/13/25 11:23 [facility] Medical History (Updated 09/13/25 @ 11:23 by Lily Bruce) History of steroid therapy Cirrhosis History of IBS Gastric reflux Smoker Leg cramps History of edema Cardiology follow-up encounter BEVERLEY (obstructive sleep apnea) Wears glasses Post-menopausal Cancer History of steroid therapy Ambulates with cane Rheumatoid arthritis Arthritis Kidney stones High cholesterol Back pain Injury of back Injury of head and neck Smoker Hx of Sjogren's disease Scoliosis History of pain when walking History of stress test Hx of melanoma of skin History of irregular heartbeat Hx of temporomandibular joint syndrome 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 Sjogrens syndrome Sicca syndrome with keratoconjunctivitis Positive MILIND (antinuclear antibody) Pancreatitis Obstructive chronic bronchitis with exacerbation Narcolepsy Migraine, unspecified, intractable, without status migrainosus Inflammatory polyarthropathy Hiatal hernia Fibromyalgia Depression Degenerative disc disease Anemia Adult osteomalacia GERD (gastroesophageal reflux disease) Osteoporosis Lupus HTN (hypertension) COPD (chronic obstructive pulmonary disease) Home Medications ?Medication ?Instructions ?Recorded ?Last Taken ?Type albuterol sulfate 90 mcg/actuation 2 puff inhalation Q6H PRN Asthma 06/17/18 08/27/18 04:30 History aerosol inhaler (ProAir HFA) fluticasone fur. 100 mcg-umeclid 1 inh inhalation QHS 08/30/23 Unknown History 62.5 mcg-vilant 25 mcg inhalat.powder (Trelegy Ellipta) losartan 50 mg tablet (Cozaar) 50 mg PO DAILY BP 08/30/23 Unknown History gabapentin 300 mg capsule 300 mg PO .Q4 HRS 06/18/25 Unknown History omeprazole 40 mg capsule,delayed 40 mg PO BID 06/18/25 Unknown History release sucralfate 1 gram tablet 1 g PO QACHS PRN STOMACH 07/07/25 Unknown History peg 3350-electrolytes 236 240 ml PO Q10M #4,000 mL 08/09/25 Unknown Rx gram-22.74 gram-6.74 gram-5.86 gram solution (Golytely) aspirin 81 mg tablet 81 mg PO QDAY 08/16/25 Unknown History lipase 60,000-protease 2 cap PO TID #120 caps 08/31/25 Unknown Rx 189,600-amylase 252,600 unit capsule, delay rel (Zenpep) Held on 09/13/25. Instructions: NOT PICKED UP FROM PHARMACY Allergy/AdvReac Type Severity Reaction Status Date / Time simvastatin Allergy Severe Pain in Verified 09/13/25 11:10 joints milk Allergy Unknown Unknown Verified 09/13/25 11:09 morphine Allergy Swelling Verified 09/13/25 11:09 Penicillins Allergy unknown, Verified 09/13/25 11:09 as a kid meperidine (From Demerol) AdvReac Vomiting Verified 09/13/25 11:09 Family History Son Allergies Lupus Daughter Allergies Lupus Mother Asthma COPD (chronic obstructive pulmonary disease) CAD (coronary artery disease) Diabetes Genitourinary disease Heart disease Hypertension Father Migraine Diabetes Hypertension Sister Migraine Hypertension CVA (cerebral vascular accident) Surgical History (Updated 09/13/25 @ 11:23 by Lily Bruce) Hx of hand surgery Hx of surgical procedure H/O vascular surgery History of arthroplasty History of nasal septoplasty History of bilateral cataract extraction History of cardiac catheterization Hx of appendectomy Hx of hysterectomy Hx of tonsillectomy Hx of joint replacement Hx of hernia repair Hx of esophagogastroduodenoscopy Hx of colonoscopy Hx of cholecystectomy Social History Smoking Status: Current every day smoker tobacco type: cigarettes alcohol intake: never substance use type: does not use Audit: Pertinent Findings Pertinent Findings EKG Perinent findings: 08/16/2025. Normal sinus rhythm [address] and T wave abnormality. Consult pertinent findings: Cardiology 08/16/2025. Preoperative cardiovascular examination. Patient appears optimized from a cardiac standpoint. EKG in office shows normal sinus rhythm 76 bpm. No change from 2022 EKG. Hypertension. Chronic. Stable. Recommendation Anesthesia Recommendation Anesthesia recommendation: OPTIMIZED for anesthesia
--- NOTE | 2025-09-13 12:17 | PAT.ANESEVAL ---
Pre-Assessment Diagnosis/Proposed Procedure Planned Operative Procedure(s): COLONOSCOPY Anesthesia History Anesthesia History - medical territory manager: Anesthesia History - medical territory manager Hx Hospitalization No 09/13/25 11:23 Any Problems With Anesthesia Yes: HARD TIME WAKING 09/13/25 11:23 Cholinesterase deficiency No 09/13/25 11:23 You/Your Family Experience No 09/13/25 11:23 fever (hyperthermia) with Relationship Recent Exposure to Contagious No 02/13/23 10:02 Disease Does patient have nerve No 09/13/25 11:23 stimulator Patient instructed to have device shut off --Does patient have Pacemaker or ICD? When Was Last Pacemaker Check QUESTION #4 FULL TEXT: You/Your Family Experience fever (hyperthermia) with Anesthesia Last Oral Intake Last Oral intake: Last Oral Intake NPO since Meds taken in AM with sips of water? Meds patient instructed to take am of surgery PONV PONV - medical territory manager: PONV - medical territory manager Female Yes 09/13/25 11:23 HX of Motion Sickness No 09/13/25 11:23 HX of N/V After Surgery No 09/13/25 11:23 Non-Smoker No 09/13/25 11:23 Duration of Surgery greater No 09/13/25 11:23 than 60 minutes Number of Risk Factors 1 09/13/25 11:23 PONV Score Low Risk 09/13/25 11:23 Height & Weight Height & Weight: Anesthesia: Height & Weight Height 5 ft 2 in 08/16/25 07:36 Respiratory Assessment Respiratory Assessment - medical territory manager: Respiratory Tract Infection Hx - medical territory manager Hx Respiratory Tract Infection No 09/13/25 11:23 STOP Sleep Apnea STOP Sleep Apnea - medical territory manager: STOP Sleep Apnea - medical territory manager Hx Hypertension Yes: STATES CONTROLLED WITH 09/13/25 11:23 MED Hx Sleep Apnea Yes: NO MACHINE 09/13/25 11:23 CPAP No 09/13/25 11:23 BIPAP No 09/13/25 11:23 Do you snore loudly (louder than talking or can be heard Do you often feel tired/ fatigued/ sleepy during daytime? Has anyone observed you stop breathing during sleep? STOP Results Positive 09/13/25 11:23 QUESTION #5 FULL TEXT : Do you snore loudly (louder than talking or can be heard through closed doors)? 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 Specify any problems Hx of Preganancy in last 3 No 09/13/25 11:23 Months Nurse Filling Out Transfusion VCHRISTIN 09/13/25 11:23 & Questions: Date: 09/13/25 09/13/25 11:23 Time: 11:24 09/13/25 11:23 Patient unable to answer at this time (ie. confused, unrespo /Reproduction History /Reproductive History - medical territory manager: /Reproductive Hx- medical territory manager Hx Now No 09/13/25 11:23 Gestational Age (in weeks): EDC: Hx Hx Para Hx Section SAB No 09/13/25 11:23 [facility] Medical History (Updated 09/13/25 @ 11:23 by Lily Bruce) History of steroid therapy Cirrhosis History of IBS Gastric reflux Smoker Leg cramps History of edema Cardiology follow-up encounter BEVERLEY (obstructive sleep apnea) Wears glasses Post-menopausal Cancer History of steroid therapy Ambulates with cane Rheumatoid arthritis Arthritis Kidney stones High cholesterol Back pain Injury of back Injury of head and neck Smoker Hx of Sjogren's disease Scoliosis History of pain when walking History of stress test Hx of melanoma of skin History of irregular heartbeat Hx of temporomandibular joint syndrome 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 Sjogrens syndrome Sicca syndrome with keratoconjunctivitis Positive MILIND (antinuclear antibody) Pancreatitis Obstructive chronic bronchitis with exacerbation Narcolepsy Migraine, unspecified, intractable, without status migrainosus Inflammatory polyarthropathy Hiatal hernia Fibromyalgia Depression Degenerative disc disease Anemia Adult osteomalacia GERD (gastroesophageal reflux disease) Osteoporosis Lupus HTN (hypertension) COPD (chronic obstructive pulmonary disease) Home Medications ?Medication ?Instructions ?Recorded ?Last Taken ?Type albuterol sulfate 90 mcg/actuation 2 puff inhalation Q6H PRN Asthma 06/17/18 08/27/18 04:30 History aerosol inhaler (ProAir HFA) fluticasone fur. 100 mcg-umeclid 1 inh inhalation QHS 08/30/23 Unknown History 62.5 mcg-vilant 25 mcg inhalat.powder (Trelegy Ellipta) losartan 50 mg tablet (Cozaar) 50 mg PO DAILY BP 08/30/23 Unknown History gabapentin 300 mg capsule 300 mg PO .Q4 HRS 06/18/25 Unknown History omeprazole 40 mg capsule,delayed 40 mg PO BID 06/18/25 Unknown History release sucralfate 1 gram tablet 1 g PO QACHS PRN STOMACH 07/07/25 Unknown History peg 3350-electrolytes 236 240 ml PO Q10M #4,000 mL 08/09/25 Unknown Rx gram-22.74 gram-6.74 gram-5.86 gram solution (Golytely) aspirin 81 mg tablet 81 mg PO QDAY 08/16/25 Unknown History lipase 60,000-protease 2 cap PO TID #120 caps 08/31/25 Unknown Rx 189,600-amylase 252,600 unit capsule, delay rel (Zenpep) Held on 09/13/25. Instructions: NOT PICKED UP FROM PHARMACY Allergy/AdvReac Type Severity Reaction Status Date / Time simvastatin Allergy Severe Pain in Verified 09/13/25 11:10 joints milk Allergy Unknown Unknown Verified 09/13/25 11:09 morphine Allergy Swelling Verified 09/13/25 11:09 Penicillins Allergy unknown, Verified 09/13/25 11:09 as a kid meperidine (From Demerol) AdvReac Vomiting Verified 09/13/25 11:09 Family History Son Allergies Lupus Daughter Allergies Lupus Mother Asthma COPD (chronic obstructive pulmonary disease) CAD (coronary artery disease) Diabetes Genitourinary disease Heart disease Hypertension Father Migraine Diabetes Hypertension Sister Migraine Hypertension CVA (cerebral vascular accident) Surgical History (Updated 09/13/25 @ 11:23 by Lily Bruce) Hx of hand surgery Hx of surgical procedure H/O vascular surgery History of arthroplasty History of nasal septoplasty History of bilateral cataract extraction History of cardiac catheterization Hx of appendectomy Hx of hysterectomy Hx of tonsillectomy Hx of joint replacement Hx of hernia repair Hx of esophagogastroduodenoscopy Hx of colonoscopy Hx of cholecystectomy Social History Smoking Status: Current every day smoker tobacco type: cigarettes alcohol intake: never substance use type: does not use Audit: Pertinent Findings Pertinent Findings EKG Perinent findings: 08/16/2025. Normal sinus rhythm [address] and T wave abnormality. Consult pertinent findings: Cardiology 08/16/2025. Preoperative cardiovascular examination. Patient appears optimized from a cardiac standpoint. EKG in office shows normal sinus rhythm 76 bpm. No change from 2022 EKG. Hypertension. Chronic. Stable. Recommendation Anesthesia Recommendation Anesthesia recommendation: OPTIMIZED for anesthesia
[2025-09-15] VITALS (8 sets, daily range): BP systolic 150–164; BP diastolic 54–77; PULSE 68–75; RESP 16–18; TEMP 36.2–37.1; O2SAT 97–100; BMI 24.5
--- NOTE | 2025-09-15 07:30 | COLBX_PTH ---
PATIENT: JORGE LUIS CARDENAS LOC: EN U#:[id number] AGE/SX: 79/F ROOM: RE09/15/[address]: Dr. Shiv Ferro DO : 1945 BED: DIS: 09/15/2025 SPEC #: [id number] RECD: 09/15/25 10:05 STATUS: HEATHER REEsteban #: [id number] ROMMEL: 09/15/25 07:[address]: Shiv Ferro DEPT: SURGICAL PATHOLOGY RECD BY: Mario Khanna ENTERED: 09/15/25 15:13 SP TYPE: COLON BX LEONA DR: Dr. Destini Bustamante MD Tissues: A - SPLENIC FLEXURE B - Cecum, NOS C - COLON BIOPSY Procedures: Surgery Specimen Level IV HEADER OPERATION: Colonoscopy PRE-OP DIAGNOSIS: Diarrhea, constipation, hepatosplenomegaly, abdominal pain TISSUE SUBMITTED: A- Splenic flexure polyp, B- Cecum biopsy, C- Random colon biopsy MICROSCOPIC DIAGNOSIS A. Splenic flexure, polyp, biopsy: * Tubular adenoma. B. Cecum, biopsy: * No specific pathologic change. C. Colon, random, biopsy: * No specific pathologic change. * The histologic features of microscopic colitis are not demonstrated. MICROSCOPIC DESCRIPTION Slides are reviewed. GROSS DESCRIPTION A. Received in fixative is one container labeled with the patient's name and designated Splenic flexure polyp. The specimen consists of two irregular fragments of slaughter tissue that measure 0.3 and 0.4 cm. The specimen is totally submitted in one cassette. B. Received in fixative is one container labeled with the patient's name and designated Cecum biopsy. The specimen consists of three irregular fragments of slaughter tissue that measure 0.2 to 1 cm. The specimen is totally submitted in one cassette. C. Received in fixative is one container labeled with the patient's name and designated Random colon biopsy. The specimen consists of three irregular fragments of slaughter tissue that measure 0.3 to 0.6 cm. The specimen is totally submitted in one cassette. [place] 09/15/2025 CPT:88791t1
--- NOTE | 2025-09-15 07:30 | COLBX_PTH ---
PATIENT: JORGE LUIS CARDENAS LOC: EN U#:[id number] AGE/SX: 79/F ROOM: RE09/15/[address]: Dr. Shiv Ferro DO : 1945 BED: DIS: 09/15/2025 SPEC #: [id number] RECD: 09/15/25 10:05 STATUS: HEATHER REEsteban #: [id number] ROMMEL: 09/15/25 07:[address]: Shiv Ferro DEPT: SURGICAL PATHOLOGY RECD BY: Mario Khanna ENTERED: 09/15/25 15:13 SP TYPE: COLON BX LEONA DR: Dr. Destini Bustamante MD Tissues: A - SPLENIC FLEXURE B - Cecum, NOS C - COLON BIOPSY Procedures: Surgery Specimen Level IV HEADER OPERATION: Colonoscopy PRE-OP DIAGNOSIS: Diarrhea, constipation, hepatosplenomegaly, abdominal pain TISSUE SUBMITTED: A- Splenic flexure polyp, B- Cecum biopsy, C- Random colon biopsy MICROSCOPIC DIAGNOSIS A. Splenic flexure, polyp, biopsy: * Tubular adenoma. B. Cecum, biopsy: * No specific pathologic change. C. Colon, random, biopsy: * No specific pathologic change. * The histologic features of microscopic colitis are not demonstrated. MICROSCOPIC DESCRIPTION Slides are reviewed. GROSS DESCRIPTION A. Received in fixative is one container labeled with the patient's name and designated Splenic flexure polyp. The specimen consists of two irregular fragments of slaughter tissue that measure 0.3 and 0.4 cm. The specimen is totally submitted in one cassette. B. Received in fixative is one container labeled with the patient's name and designated Cecum biopsy. The specimen consists of three irregular fragments of slaughter tissue that measure 0.2 to 1 cm. The specimen is totally submitted in one cassette. C. Received in fixative is one container labeled with the patient's name and designated Random colon biopsy. The specimen consists of three irregular fragments of slaughter tissue that measure 0.3 to 0.6 cm. The specimen is totally submitted in one cassette. [place] 09/15/2025 CPT:32903j3
--- NOTE | 2025-09-15 07:31 | PCM.PRE.AN2 ---
ASA Classification* ASA Classification ASA Classification: 3 (Recent diagnosis of cirrhosis of the liver per patient) Assessment & Plan Anesthesia* Anesthesia Assessment Anesthesia Assessment: Discussed sedation and/or anesthesia options, risks, benefits, and alternatives with patient/parents/legal guardian/POA. Questions invited. The patient/parents/legal guardian/POA seems to understand and agrees to proceed with anesthesia plan. Reviewed the physical assessment, medical history, allergy history and patient home medications list prior to surgery/procedure/anesthetic and documented any changes. Performed airway and anesthesia risk assessments. Anesthesia Type Anesthesia Type: MAC History Source History Obtained from:: Patient and Chart Anesthesia Focused Assessment* Temperature: 98.7 F Pulse Rate: 68 Blood Pressure: 157/54 Respiratory Rate: 18 Pulse Ox: 97 Oxygen Delivery Method: Room Air Airway Assessment Mouth opens: >3 cm Mallampati Score: II Teeth Condition: Chipped/Broken and Missing Neck Range of motion (ROM): Limited ROM Labs Anesthesia Preop lab: CBC WBC, (4.4-11.0) 7.3 K/mm3 08/09/25, 14: RBC, (4.2-5.4) 4.24 M/mm3 08/09/25, : Hgb, (12.0-15.0) 11.8 g/dL L 08/09/25, : Hct, (37-47) 36.6 % L 08/09/25, 14: Plt Count, (150-450) 163 K/mm3 08/09/25, 14:25 CHEMISTRY Potassium, (3.3-5.1) 3.7 mmol/L 08/09/25, : Sodium, (133-145) 140 mmol/L 08/09/25, 14:25 BUN, (4-19) 16 mg/dL 08/09/25, 14: Creatinine, (0.70-1.20) 0.55 mg/dL L 08/09/25, : Glucose, (70-99) 83 mg/dL 08/09/25, 14:25 COAG PT, (11.7-14.9) 13.2 SECONDS 08/09/25, : Pre-Assessment Diagnosis/Proposed Procedure Planned Operative Procedure(s): COLONOSCOPY Anesthesia History Anesthesia History - bilingual customer service: Anesthesia History - bilingual customer service Hx Hospitalization No 09/13/25 11:23 Any Problems With Anesthesia Yes: HARD TIME WAKING 09/13/25 11:23 Cholinesterase deficiency No 09/13/25 11:23 You/Your Family Experience No 09/13/25 11:23 fever (hyperthermia) with Relationship Recent Exposure to Contagious No 09/15/25 07:04 Disease Does patient have nerve No 09/13/25 11:23 stimulator Patient instructed to have device shut off --Does patient have Pacemaker No 09/15/25 07:04 or ICD? When Was Last Pacemaker Check QUESTION #4 FULL TEXT: You/Your Family Experience fever (hyperthermia) with Anesthesia Last Oral Intake Last Oral intake: Last Oral Intake NPO since 04:00 09/15/25 07:04 Meds taken in AM with sips of No 09/15/25 07:04 water? Meds patient instructed to take am of surgery PONV PONV - bilingual customer service: PONV - bilingual customer service Female Yes 09/13/25 11:23 HX of Motion Sickness No 09/13/25 11:23 HX of N/V After Surgery No 09/13/25 11:23 Non-Smoker No 09/13/25 11:23 Duration of Surgery greater No 09/13/25 11:23 than 60 minutes Number of Risk Factors 1 09/13/25 11:23 PONV Score Low Risk 09/13/25 11:23 Height & Weight Height & Weight: Anesthesia: Height & Weight Height 5 ft 2 in 09/15/25 07:04 Weight: 61 kg 09/15/25 07:04 Body Mass Index (BMI) 24.5 09/15/25 07:04 Respiratory Assessment Respiratory Assessment - bilingual customer service: Respiratory Tract Infection Hx - bilingual customer service Hx Respiratory Tract Infection No 09/13/25 11:23 STOP Sleep Apnea STOP Sleep Apnea - bilingual customer service: STOP Sleep Apnea - bilingual customer service Hx Hypertension Yes: STATES CONTROLLED WITH 09/13/25 11:23 MED Hx Sleep Apnea Yes: NO MACHINE 09/13/25 11:23 CPAP No 09/13/25 11:23 BIPAP No 09/13/25 11:23 Do you snore loudly (louder than talking or can be heard Do you often feel tired/ fatigued/ sleepy during daytime? Has anyone observed you stop breathing during sleep? STOP Results Positive 09/13/25 11:23 QUESTION #5 FULL TEXT : Do you snore loudly (louder than talking or can be heard through closed doors)? 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 Specify any problems Hx of Preganancy in last 3 No 09/13/25 11:23 Months Nurse Filling Out Transfusion VCHRISTIN 09/13/25 11:23 & Questions: Date: 09/13/25 09/13/25 11:23 Time: 11:24 09/13/25 11:23 Patient unable to answer at this time (ie. confused, unrespo /Reproduction History /Reproductive History - bilingual customer service: /Reproductive Hx- bilingual customer service Hx Now No 09/13/25 11:23 Gestational Age (in weeks): EDC: Hx Hx Para Hx Section SAB No 09/13/25 11:23 Active Medications Active Medications: Current Medications Generic Name Dose Route Start Last Admin Trade Name Freq PRN Reason Stop Dose Admin Lactated Ringer's 1,000 mls @ 15 mls/hr 09/15/25 07:00 IV .Q48H ADALBERTO PFSH Medical History History of steroid therapy Cirrhosis History of IBS Gastric reflux Smoker Leg cramps History of edema Cardiology follow-up encounter BEVERLEY (obstructive sleep apnea) Wears glasses Post-menopausal Cancer History of steroid therapy Ambulates with cane Rheumatoid arthritis Arthritis Kidney stones High cholesterol Back pain Injury of back Injury of head and neck Smoker Hx of Sjogren's disease Scoliosis History of pain when walking History of stress test Hx of melanoma of skin History of irregular heartbeat Hx of temporomandibular joint syndrome 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 Sjogrens syndrome Sicca syndrome with keratoconjunctivitis Positive MILIND (antinuclear antibody) Pancreatitis Obstructive chronic bronchitis with exacerbation Narcolepsy Migraine, unspecified, intractable, without status migrainosus Inflammatory polyarthropathy Hiatal hernia Fibromyalgia Depression Degenerative disc disease Anemia Adult osteomalacia GERD (gastroesophageal reflux disease) Osteoporosis Lupus HTN (hypertension) COPD (chronic obstructive pulmonary disease) Home Medications ?Medication ?Instructions ?Recorded ?Last Taken ?Type albuterol sulfate 90 mcg/actuation 2 puff inhalation Q6H PRN Asthma 06/17/18 08/27/18 04:30 History aerosol inhaler (ProAir HFA) fluticasone fur. 100 mcg-umeclid 1 inh inhalation QHS 08/30/23 09/14/25 History 62.5 mcg-vilant 25 mcg inhalat.powder (Trelegy Ellipta) losartan 50 mg tablet (Cozaar) 50 mg PO DAILY BP 08/30/23 09/14/25 History gabapentin 300 mg capsule 300 mg PO .Q4 HRS 06/18/25 09/14/25 History omeprazole 40 mg capsule,delayed 40 mg PO BID 06/18/25 09/14/25 History release sucralfate 1 gram tablet 1 g PO QACHS PRN STOMACH 07/07/25 09/14/25 History peg 3350-electrolytes 236 240 ml PO Q10M #4,000 mL 08/09/25 09/14/25 Rx gram-22.74 gram-6.74 gram-5.86 gram solution (Golytely) aspirin 81 mg tablet 81 mg PO QDAY 08/16/25 09/13/25 History lipase 60,000-protease 2 cap PO TID #120 caps 08/31/25 Unknown Rx 189,600-amylase 252,600 unit capsule, delay rel (Zenpep) Held on 09/13/25. Instructions: NOT PICKED UP FROM PHARMACY Allergy/AdvReac Type Severity Reaction Status Date / Time simvastatin Allergy Severe Pain in Verified 09/15/25 07:02 joints milk Allergy Unknown Unknown Verified 09/15/25 07:02 morphine Allergy Swelling Verified 09/15/25 07:02 Penicillins Allergy unknown, Verified 09/15/25 07:02 as a kid meperidine (From Demerol) AdvReac Vomiting Verified 09/15/25 07:02 Family History Son Allergies Lupus Daughter Allergies Lupus Mother Asthma COPD (chronic obstructive pulmonary disease) CAD (coronary artery disease) Diabetes Genitourinary disease Heart disease Hypertension Father Migraine Diabetes Hypertension Sister Migraine Hypertension CVA (cerebral vascular accident) Surgical History Hx of hand surgery Hx of surgical procedure H/O vascular surgery History of arthroplasty History of nasal septoplasty History of bilateral cataract extraction History of cardiac catheterization Hx of appendectomy Hx of hysterectomy Hx of tonsillectomy Hx of joint replacement Hx of hernia repair Hx of esophagogastroduodenoscopy Hx of colonoscopy Hx of cholecystectomy Social History Smoking Status: Current every day smoker tobacco type: cigarettes alcohol intake: never substance use type: does not use Review of Systems (Anesthesia) ROS Narrative System reviewed and no additional complaints, except as documented.
--- NOTE | 2025-09-15 07:31 | PCM.PRE.AN2 ---
ASA Classification* ASA Classification ASA Classification: 3 (Recent diagnosis of cirrhosis of the liver per patient) Assessment & Plan Anesthesia* Anesthesia Assessment Anesthesia Assessment: Discussed sedation and/or anesthesia options, risks, benefits, and alternatives with patient/parents/legal guardian/POA. Questions invited. The patient/parents/legal guardian/POA seems to understand and agrees to proceed with anesthesia plan. Reviewed the physical assessment, medical history, allergy history and patient home medications list prior to surgery/procedure/anesthetic and documented any changes. Performed airway and anesthesia risk assessments. Anesthesia Type Anesthesia Type: MAC History Source History Obtained from:: Patient and Chart Anesthesia Focused Assessment* Temperature: 98.7 F Pulse Rate: 68 Blood Pressure: 157/54 Respiratory Rate: 18 Pulse Ox: 97 Oxygen Delivery Method: Room Air Airway Assessment Mouth opens: >3 cm Mallampati Score: II Teeth Condition: Chipped/Broken and Missing Neck Range of motion (ROM): Limited ROM Labs Anesthesia Preop lab: CBC WBC, (4.4-11.0) 7.3 K/mm3 08/09/25, 14: RBC, (4.2-5.4) 4.24 M/mm3 08/09/25, : Hgb, (12.0-15.0) 11.8 g/dL L 08/09/25, : Hct, (37-47) 36.6 % L 08/09/25, 14: Plt Count, (150-450) 163 K/mm3 08/09/25, 14:25 CHEMISTRY Potassium, (3.3-5.1) 3.7 mmol/L 08/09/25, : Sodium, (133-145) 140 mmol/L 08/09/25, 14:25 BUN, (4-19) 16 mg/dL 08/09/25, 14: Creatinine, (0.70-1.20) 0.55 mg/dL L 08/09/25, : Glucose, (70-99) 83 mg/dL 08/09/25, 14:25 COAG PT, (11.7-14.9) 13.2 SECONDS 08/09/25, : Pre-Assessment Diagnosis/Proposed Procedure Planned Operative Procedure(s): COLONOSCOPY Anesthesia History 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 When Was Last Pacemaker Check QUESTION #4 FULL TEXT: You/Your Family Experience fever (hyperthermia) with Anesthesia Last Oral Intake Last Oral intake: Last Oral Intake NPO since 04:00 09/15/25 07:04 Meds taken in AM with sips of No 09/15/25 07:04 water? Meds patient instructed to take am of surgery PONV PONV - esthetician permanent makeup artist: PONV - esthetician permanent makeup artist Female Yes 09/13/25 11:23 HX of Motion Sickness No 09/13/25 11:23 HX of N/V After Surgery No 09/13/25 11:23 Non-Smoker No 09/13/25 11:23 Duration of Surgery greater No 09/13/25 11:23 than 60 minutes Number of Risk Factors 1 09/13/25 11:23 PONV Score Low Risk 09/13/25 11:23 Height & Weight Height & Weight: Anesthesia: Height & Weight Height 5 ft 2 in 09/15/25 07:04 Weight: 61 kg 09/15/25 07:04 Body Mass Index (BMI) 24.5 09/15/25 07:04 Respiratory Assessment Respiratory Assessment - esthetician permanent makeup artist: Respiratory Tract Infection Hx - esthetician permanent makeup artist Hx Respiratory Tract Infection No 09/13/25 11:23 STOP Sleep Apnea STOP Sleep Apnea - esthetician permanent makeup artist: STOP Sleep Apnea - esthetician permanent makeup artist Hx Hypertension Yes: STATES CONTROLLED WITH 09/13/25 11:23 MED Hx Sleep Apnea Yes: NO MACHINE 09/13/25 11:23 CPAP No 09/13/25 11:23 BIPAP No 09/13/25 11:23 Do you snore loudly (louder than talking or can be heard Do you often feel tired/ fatigued/ sleepy during daytime? Has anyone observed you stop breathing during sleep? STOP Results Positive 09/13/25 11:23 QUESTION #5 FULL TEXT : Do you snore loudly (louder than talking or can be heard through closed doors)? Tobacco Use History Tobacco Use History - esthetician permanent makeup artist: Tobacco Use History - esthetician permanent makeup artist Tobacco Use Smoking Status Current every day smoker 09/13/25 11:23 Hx Tobacco Use Yes 09/13/25 11:23 Years Smoking Packs Smoked per Day Smoking Cessation Date was within the last 15 years Hx Smoking Cessation Date Hx Smoking Cessation Counseling Hematologic Medial History Hematologic Hx - esthetician permanent makeup artist: Hematologic Medical Hx - featheredger and reducer machine Hx of Blood Transfusion No 09/13/25 11:23 Hx of Transfusion in last 3 No 09/13/25 11:23 Months Date of Last Transfusion (if within last 3 months) Ever experience any problems No 09/13/25 11:23 with transfusion(s)? Specify any problems Hx of Preganancy in last 3 No 09/13/25 11:23 Months Nurse Filling Out Transfusion VCHRISTIN 09/13/25 11:23 & Questions: Date: 09/13/25 09/13/25 11:23 Time: 11:24 09/13/25 11:23 Patient unable to answer at this time (ie. confused, unrespo /Reproduction History /Reproductive History - esthetician permanent makeup artist: /Reproductive Hx- esthetician permanent makeup artist Hx Now No 09/13/25 11:23 Gestational Age (in weeks): EDC: Hx Hx Para Hx Section SAB No 09/13/25 11:23 Active Medications Active Medications: Current Medications Generic Name Dose Route Start Last Admin Trade Name Freq PRN Reason Stop Dose Admin Lactated Ringer's 1,000 mls @ 15 mls/hr 09/15/25 07:00 IV .Q48H ADALBERTO PFSH Medical History History of steroid therapy Cirrhosis History of IBS Gastric reflux Smoker Leg cramps History of edema Cardiology follow-up encounter [facility] (obstructive sleep apnea) Wears glasses Post-menopausal Cancer History of steroid therapy Ambulates with cane Rheumatoid arthritis Arthritis Kidney stones High cholesterol Back pain Injury of back Injury of head and neck Smoker Hx of Sjogren's disease Scoliosis History of pain when walking History of stress test Hx of melanoma of skin History of irregular heartbeat Hx of temporomandibular joint syndrome 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 Sjogrens syndrome Sicca syndrome with keratoconjunctivitis Positive MILIND (antinuclear antibody) Pancreatitis Obstructive chronic bronchitis with exacerbation Narcolepsy Migraine, unspecified, intractable, without status migrainosus Inflammatory polyarthropathy Hiatal hernia Fibromyalgia Depression Degenerative disc disease Anemia Adult osteomalacia GERD (gastroesophageal reflux disease) Osteoporosis Lupus HTN (hypertension) COPD (chronic obstructive pulmonary disease) Home Medications ?Medication ?Instructions ?Recorded ?Last Taken ?Type albuterol sulfate 90 mcg/actuation 2 puff inhalation Q6H PRN Asthma 06/17/18 08/27/18 04:30 History aerosol inhaler (ProAir HFA) fluticasone fur. 100 mcg-umeclid 1 inh inhalation QHS 08/30/23 09/14/25 History 62.5 mcg-vilant 25 mcg inhalat.powder (Trelegy Ellipta) losartan 50 mg tablet (Cozaar) 50 mg PO DAILY BP 08/30/23 09/14/25 History gabapentin 300 mg capsule 300 mg PO .Q4 HRS 06/18/25 09/14/25 History omeprazole 40 mg capsule,delayed 40 mg PO BID 06/18/25 09/14/25 History release sucralfate 1 gram tablet 1 g PO QACHS PRN STOMACH 07/07/25 09/14/25 History peg 3350-electrolytes 236 240 ml PO Q10M #4,000 mL 08/09/25 09/14/25 Rx gram-22.74 gram-6.74 gram-5.86 gram solution (Golytely) aspirin 81 mg tablet 81 mg PO QDAY 08/16/25 09/13/25 History lipase 60,000-protease 2 cap PO TID #120 caps 08/31/25 Unknown Rx 189,600-amylase 252,600 unit capsule, delay rel (Zenpep) Held on 09/13/25. Instructions: NOT PICKED UP FROM PHARMACY Allergy/AdvReac Type Severity Reaction Status Date / Time simvastatin Allergy Severe Pain in Verified 09/15/25 07:02 joints milk Allergy Unknown Unknown Verified 09/15/25 07:02 morphine Allergy Swelling Verified 09/15/25 07:02 Penicillins Allergy unknown, Verified 09/15/25 07:02 as a kid meperidine (From Demerol) AdvReac Vomiting Verified 09/15/25 07:02 Family History Son Allergies Lupus Daughter Allergies Lupus Mother Asthma COPD (chronic obstructive pulmonary disease) CAD (coronary artery disease) Diabetes Genitourinary disease Heart disease Hypertension Father Migraine Diabetes Hypertension Sister Migraine Hypertension CVA (cerebral vascular accident) Surgical History Hx of hand surgery Hx of surgical procedure H/O vascular surgery History of arthroplasty History of nasal septoplasty History of bilateral cataract extraction History of cardiac catheterization Hx of appendectomy Hx of hysterectomy Hx of tonsillectomy Hx of joint replacement Hx of hernia repair Hx of esophagogastroduodenoscopy Hx of colonoscopy Hx of cholecystectomy Social History Smoking Status: Current every day smoker tobacco type: cigarettes alcohol intake: never substance use type: does not use Review of Systems (Anesthesia) ROS Narrative System reviewed and no additional complaints, except as documented.
--- NOTE | 2025-09-15 07:35 | PCM.HP.STD ---
HPI - General General Date of Admission: 09/15/25 Date of Service: 09/15/25 Chief Complaint: Abdominal pain HPI Narrative JORGE LUIS CARDENAS, is a 79 F who presents [ ADDENDUM by CRISTIAN-Leslie Mccabe on 08/10/25 at 0721 HPI Details: - denies any family h/o colon CA CBC: 07/15/2025 WNL CMP: 07/15/2025 glucose 100 CRP: 07/15/2025 mildly elevated at 4 FECAL Calprotectin 06/05/2025 elevated 487 Quantiferon: 07/15/2025 normal Occult positive stools: 06/05/2025 C. Diff: negative 07/01/2205 - on Omeprazole BID - taking pepci 40mg PRN - Carafate TID - nausea, denies emesis - LUQ Pain/bloating after eating - back pain is worse after a BM - Colestipol caused severe constipation - with no BM for 5 days - Metamucil and Senekot cause diarrhea with 1 dose - Metamucil also causes extreme gastric distress and bloating - she is not diabetic HPI HPI Chief Complaint: Referred for Splenomegaly. Details: 05.01.25 OV re-establishment with [facility] regarding IBS-D and SMA syndrome. She reports a complicated GI history including ulcers in her esophagus, stomach and duodenum. She will experience constipation that may last up to 5 days and then have explosive diarrhea 10 times a day with occasional incontinence in cycles. In the diarrhea phase, she says it wakes her up in the middle of the night. She eats once a day due to severe abdominal pain postprandial. She describes the pain as epigastric and that it shoots straight through to her back. She has moderate daily nausea that is controlled by not eating. She recently reports having an endoluminal procedure to attempt stent placement in the SMA that was unsuccessful in January of this year. She states that she overly tired of dealing with all of her pain issues: scoliosis, degenerative/herniated discs, osteoarthritis, lupus. Attempts to manage her abdominal pain have included sucralfate, omeprazole, and dicyclomine. She reports the Bentyl doesn't even start to work until my third dose. She recently discontinued colestipol d/t exacerbation of constipation; has been supplementing her diet w/Boost protein shakes. She took herself off of Plavix d/t cold spells and is taking daily aspirin. 03.31.[address] [facility] [address] Abd/pel w/IV contrast: cirrhotic liver morphology, splenomegaly(measuring 18cm craniocaudad dimension), no bile duct dilation, prior cholecystectomy, fatty infiltration of pancreas, no dilation or wall thickening to GI tract, no ascites or mass, *stable moderate stenosis of the SMA, stent in right femoral artery, bilateral hip prostheses, bilateral inguinal hernia repairs w/mesh. 05.26.25 CT abd/pelvis - Proximal SMA is thrombosed for distance or proximally 3 cm. This is likely on a chronic basis. Medical liver disease and splenic enlargement, the patient probably has portal venous hypertension. 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 Splenomegaly is again noted. Delayed images were not performed to assess the splenic vein 06.18.25 [facility] ER patient is evaluated for worsening left-sided abdominal pain over the last day and a half. Notes that she has had pain on the left side for 4 years but it is worsened. She also recently found out about an enlarged spleen and is quite nervous about this. Some chronic urinary symptoms not sure if there is been any acute change in them. No report of fevers. Differential includes acute vascular abnormality of her splenic vein, splenic rupture/laceration (lower suspicion given no report of trauma and she is hemodynamically stable), pyelonephritis, renal colic, urinary tract infection, bowel obstruction (lower sufficient given no report of vomiting or diarrhea). Workup including CBC, BMP, liver panel, lipase and urinalysis is obtained. CBC largely normal. No leukocytosis present or left shift. BMP also normal with normal kidney function. Liver enzymes largely normal. She is of a mild elevation of her alkaline phosphatase however this appears chronic and stable. Lipase is normal. Urinalysis is concerning with for UTI with positive nitrites and 3+ bacteria. Will send for culture as she does have suprapubic tenderness on exam it is possible she could have a developing UTI which is why she is having these worsening symptoms over the past few days. Suspicion for pyelonephritis given no leukocytosis, fever or CVA tenderness. 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 Patient restarted on Bactrim, urine culture pending. Given return precautions. She is comfortable with this plan of care. Encouraged to continue to follow-up with GI. Discharged home in stable condition. ANDREI varner/ Art Godinez CNP 07/16/2025 She presents with moderate to severe abdominal pain, right hip and knee pain. She states eating aggravates the abdominal pain and makes it radiate to her spine. She states frustration, had appt with hematology and was told her blood tests looked ok. We discussed next step of obtaining a specific liver US with doppler exam of all 3 hepatic vessels to verify patency. She states her orthopedic provider wants to place her on oral prednisone for short burst and she is questioning safety and possible side effects in consideration of her hepatosplenomegaly. 79 F who presents to the office today for FU. Discussed care plan with her. Reviewed general risks associated with moderate dosing prednisone regarding increased susceptibility to infection. 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 US Doppler 07/28/2025 [facility] - no ductal dilation, CBD 0.5cm - splenomegaly 16.4cm - no thrombus or abnormal flow involving the portal or splenic vein - nodular hepatic contour raises the concern for cirrhosis - history of lupus - denies any family h/o liver disease - denies any alcohol consumption - alternating constipation and diarrhea and abdominal pain with any PO intake, since 2016 - reports she has extreme constipation, no BM for 3 days followed by 3-4 days of diarrhea then back to constipation - reports she has no control over stools - skips meals to prevent diarrhea - occlusion of SMA, stable, seen by vascular and she has collaterals and they recommend f/u with GI - blood in stool - calprotectin 786 on 05/17/2025 - takes Excedrin BID for chronic joint issues and PINEDA January 2023 - Colonoscopy - random biopsies were negative, TA - thinks Creon maybe helped in the past - cannot afford Creon - h/o pancreatitis many years ago The patient is a 79-year-old female presenting with gastrointestinal issues and concerns about liver function and spleen size. The patient reports chronic gastrointestinal problems, including alternating between constipation and severe diarrhea, which have persisted since 2016. Initial symptoms began with severe diarrhea, following which the patient developed abdominal pain localized to her left side, often exacerbated by food intake. The patient reports that eating even a single meal often leads to diarrhea, causing significant distress and impacting her ability to perform daily activities, leading her to restrict food intake to late evening. 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 Imaging has indicated splenomegaly, and an ultrasound revealed nodular changes suggestive of cirrhosis. The patient denies any history of heavy alcohol use but mentions a diagnosis of lupus, which predisposes to autoimmune conditions. Laboratory tests from earlier this year showed borderline low platelet counts (155) and slightly elevated alkaline phosphatase levels since at least 2018, with noted variability. Additionally, the patient has experienced EPI, for which Creon was once prescribed, but the cost proved prohibitive. The patient has a background of lupus with occasional severe joint pain treated with Excedrin, although aware of potential gastrointestinal bleeding risks. Familial history is negative for liver disease and colon cancer. [facility] Medical History History of steroid therapy Cirrhosis History of IBS Gastric reflux Smoker Leg cramps History of edema Cardiology follow-up encounter [facility] (obstructive sleep apnea) Wears glasses Post-menopausal Cancer History of steroid therapy Ambulates with cane Rheumatoid arthritis Arthritis Kidney stones High cholesterol Back pain Injury of back Injury of head and neck Smoker Hx of Sjogren's disease Scoliosis History of pain when walking History of stress test Hx of melanoma of skin History of irregular heartbeat Hx of temporomandibular joint syndrome 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 Sjogrens syndrome Sicca syndrome with keratoconjunctivitis Positive MILIND (antinuclear antibody) Pancreatitis Obstructive chronic bronchitis with exacerbation Narcolepsy Migraine, unspecified, intractable, without status migrainosus Inflammatory polyarthropathy Hiatal hernia Fibromyalgia Depression Degenerative disc disease Anemia Adult osteomalacia GERD (gastroesophageal reflux disease) Osteoporosis Lupus HTN (hypertension) COPD (chronic obstructive pulmonary disease) Home Medications ?Medication ?Instructions ?Recorded ?Last Taken ?Type albuterol sulfate 90 mcg/actuation 2 puff inhalation Q6H PRN Asthma 06/17/18 08/27/18 04:30 History aerosol inhaler (ProAir HFA) fluticasone fur. 100 mcg-umeclid 1 inh inhalation QHS 08/30/23 09/14/25 History 62.5 mcg-vilant 25 mcg inhalat.powder (Trelegy Ellipta) losartan 50 mg tablet (Cozaar) 50 mg PO DAILY BP 08/30/23 09/14/25 History gabapentin 300 mg capsule 300 mg PO .Q4 HRS 06/18/25 09/14/25 History omeprazole 40 mg capsule,delayed 40 mg PO BID 06/18/25 09/14/25 History release sucralfate 1 gram tablet 1 g PO QACHS PRN STOMACH 07/07/25 09/14/25 History peg 3350-electrolytes 236 240 ml PO Q10M #4,000 mL 08/09/25 09/14/25 Rx gram-22.74 gram-6.74 gram-5.86 gram solution (Golytely) aspirin 81 mg tablet 81 mg PO QDAY 08/16/25 09/13/25 History lipase 60,000-protease 2 cap PO TID #120 caps 08/31/25 Unknown Rx 189,600-amylase 252,600 unit capsule, delay rel (Zenpep) Held on 09/13/25. Instructions: NOT PICKED UP FROM PHARMACY Allergy/AdvReac Type Severity Reaction Status Date / Time simvastatin Allergy Severe Pain in Verified 09/15/25 07:02 joints milk Allergy Unknown Unknown Verified 09/15/25 07:02 morphine Allergy Swelling Verified 09/15/25 07:02 Penicillins Allergy unknown, Verified 09/15/25 07:02 as a kid meperidine (From Demerol) AdvReac Vomiting Verified 09/15/25 07:02 Family History Son Allergies Lupus Daughter Allergies Lupus Mother Asthma COPD (chronic obstructive pulmonary disease) CAD (coronary artery disease) Diabetes Genitourinary disease Heart disease Hypertension Father Migraine Diabetes Hypertension Sister Migraine Hypertension CVA (cerebral vascular accident) Surgical History Hx of hand surgery Hx of surgical procedure H/O vascular surgery History of arthroplasty History of nasal septoplasty History of bilateral cataract extraction History of cardiac catheterization Hx of appendectomy Hx of hysterectomy Hx of tonsillectomy Hx of joint replacement Hx of hernia repair Hx of esophagogastroduodenoscopy Hx of colonoscopy Hx of cholecystectomy Social History Smoking Status: Current every day smoker tobacco type: cigarettes alcohol intake: never substance use type: does not use ROS Constitutional Constitutional: Denies fatigue, fever(s), poor appetite, weight gain or weight loss Gastrointestinal Gastrointestinal: Denies belching, bloating, change in bowel habits, change in stool character, chewing difficulty, coffee ground emesis, constipation, cramping, diarrhea, dyspepsia, dysphagia, early satiety, excessive flatus, fecal incontinence, heartburn, hematemesis, hematochezia, hemorrhoids, loose stools, melena, nausea, odynophagia, rectal bleeding, tenesmus, vomiting or weight changes Vital Signs Vital Signs Vital Signs: 09/15/25 07:04 09/15/25 07:04 09/15/25 07:33 Temperature 98.7 F 98.7 F Temperature Source Temporal Pulse Rate 68 68 Respiratory Rate 18 18 Respiratory Pattern Normal Blood Pressure 157/54 H 157/54 H Blood Pressure Mean 88 Blood Pressure Source Monitor Blood Pressure Position Sitting Blood Pressure Location Left Arm Pulse Ox 97 97 Oxygen Delivery Method Room Air Room Air Weight Weight: 134 lb 7.712 oz Body Mass Index (BMI) 24.5 Physical Exam Const alert, oriented x3, no apparent distress and healthy appearing General Appearance: cooperative GI normal to inspection, nondistended, normoactive bowel sounds, soft to palpation, non-tender and non-distended Percussion: normal to percussion Rectal Exam: deferred Assessment & Plan Assessment/Plan (1) Abdominal pain: PLAN: Assessment and Plan Assessment and Plan (1) Diarrhea: Status: Chronic (2) Constipation: Status: Chronic Qualifiers: Constipation type: slow transit constipation Qualified Code(s): K59.01 - Slow transit constipation (3) Hepatosplenomegaly: Status: Chronic Comment: Could be related Cirrhosis (4) Abdominal pain: Status: Acute Orders: Orders MILIND w/ Reflex Mult Confirm 08/09/25 K59.01 - Slow transit constipation, R10.9 - Unspecified abdominal pain, R16.2 - Hepatomegaly with splenomegaly, not elsewhere classified, R19.7 - Diarrhea, unspecified Anti-Mitochondrial AB 08/09/25 K59.01 - Slow transit constipation, R10.9 - Unspecified abdominal pain, R16.2 - Hepatomegaly with splenomegaly, not elsewhere classified, R19.7 - Diarrhea, unspecified Anti-Smooth Muscle ABS 08/09/25 K59.01 - Slow transit constipation, R10.9 - Unspecified abdominal pain, R16.2 - Hepatomegaly with splenomegaly, not elsewhere classified, R19.7 - Diarrhea, unspecified Alpha 1 Anti-Trypsin 08/09/25 Liver Profile 08/09/25 K59.01 - Slow transit constipation, R10.9 - Unspecified abdominal pain, R16.2 - Hepatomegaly with splenomegaly, not elsewhere classified, R19.7 - Diarrhea, unspecified Basic Metabolic Profile (BMP) 08/09/25 K59.01 - Slow transit constipation, R10.9 - Unspecified abdominal pain, R16.2 - Hepatomegaly with splenomegaly, not elsewhere classified, R19.7 - Diarrhea, unspecified CBC W/Diff, Automated 08/09/25 K59.01 - Slow transit constipation, K74.60 - Unspecified cirrhosis of liver, R10.9 - Unspecified abdominal pain, R16.2 - Hepatomegaly with splenomegaly, not elsewhere classified, R19.7 - Diarrhea, unspecified Prothrombin Time w/INR 08/09/25 K59.01 - Slow transit constipation, K74.60 - Unspecified cirrhosis of liver, R10.9 - Unspecified abdominal pain, R16.2 - Hepatomegaly with splenomegaly, not elsewhere classified, R19.7 - Diarrhea, unspecified AFP, Tumor Marker 08/09/25 K59.01 - Slow transit constipation, K74.60 - Unspecified cirrhosis of liver, R10.9 - Unspecified abdominal pain, R16.2 - Hepatomegaly with splenomegaly, not elsewhere classified, R19.7 - Diarrhea, unspecified Ceruloplasmin 08/09/25 K59.01 - Slow transit constipation, R10.9 - Unspecified abdominal pain, R16.2 - Hepatomegaly with splenomegaly, not elsewhere classified, R19.7 - Diarrhea, unspecified GGTP 08/09/25 K59.01 - Slow transit constipation, K74.60 - Unspecified cirrhosis of liver, R10.9 - Unspecified abdominal pain, R16.2 - Hepatomegaly with splenomegaly, not elsewhere classified, R19.7 - Diarrhea, unspecified Immunoglobulin A 08/09/25 K59.01 - Slow transit constipation, R10.9 - Unspecified abdominal pain, R16.2 - Hepatomegaly with splenomegaly, not elsewhere classified, R19.7 - Diarrhea, unspecified t-Transglutaminase IgA 08/09/25 K59.01 - Slow transit constipation, R10.9 - Unspecified abdominal pain, R16.2 - Hepatomegaly with splenomegaly, not elsewhere classified, R19.7 - Diarrhea, unspecified Hepatitis A AB, Total 08/09/25 K59.01 - Slow transit constipation, R10.9 - Unspecified abdominal pain, R16.2 - Hepatomegaly with splenomegaly, not elsewhere classified, R19.7 - Diarrhea, unspecified Hepatitis B Core Ab Total 08/09/25 K59.01 - Slow transit constipation, R10.9 - Unspecified abdominal pain, R16.2 - Hepatomegaly with splenomegaly, not elsewhere classified, R19.7 - Diarrhea, unspecified Hepatitis B Surface Antibody 08/09/25 K59.01 - Slow transit constipation, R10.9 - Unspecified abdominal pain, R16.2 - Hepatomegaly with splenomegaly, not elsewhere classified, R19.7 - Diarrhea, unspecified Hepatitis B Surface Antigen 08/09/25 K59.01 - Slow transit constipation, R10.9 - Unspecified abdominal pain, R16.2 - Hepatomegaly with splenomegaly, not elsewhere classified, R19.7 - Diarrhea, unspecified Hepatitis C Antibody 08/09/25 K59.01 - Slow transit constipation, R10.9 - Unspecified abdominal pain, R16.2 - Hepatomegaly with splenomegaly, not elsewhere classified, R19.7 - Diarrhea, unspecified [facility] Misc. 08/09/25 K59.01 - Slow transit constipation, R10.9 - Unspecified abdominal pain, R16.2 - Hepatomegaly with splenomegaly, not elsewhere classified, R19.7 - Diarrhea, unspecified Abdomen Single View 08/09/25 K59.01 - Slow transit constipation, R10.9 - Unspecified abdominal pain, R16.2 - Hepatomegaly with splenomegaly, not elsewhere classified, R19.7 - Diarrhea, unspecified Abdomen Single View 08/09/25 K59.01 - Slow transit constipation, R10.9 - Unspecified abdominal pain, R16.2 - Hepatomegaly with splenomegaly, not elsewhere classified, R19.7 - Diarrhea, unspecified Medications: New sobyde-gyktxjme-njzcbnp 36,000-114,000- 180,000 unit (Creon) 1 cap orally; administer 2 with meals and 1 with snacks 300 caps 1RF peg 3350-electrolytes 236-22.74-6.74 -5.86 gram (Golytely) as directed for split dose bowel prep 240 mL PO Q10M 4,000 mL 0RF Plan A 79-year-old female with a history of lupus and SMA syndrome presenting with gastrointestinal issues and concerns over liver function. The patient's primary concerns are her chronic gastrointestinal symptoms, specifically alternating constipation and diarrhea with associated abdominal pain, as well as the recent findings of liver nodularity suggestive of cirrhosis and significant splenomegaly. Given her history of lupus, an autoimmune component to her liver changes is being considered. The elevation in calprotectin suggests a potential inflammatory process within the gastrointestinal tract, warranting further investigation. Despite her gastrointestinal symptoms and vascular history, there is no acute decompensated liver disease. Considering her complex clinical picture, further diagnostic workup is necessary to discern the etiology of her symptoms and optimize management. Patient Instructions: Discontinue non-steroidal medications Okay, to take Tylenol, do not exceed 2g daily Okay, to use prednisone as prescribed for arthritis Avoid all alcohol intake Colonoscopy - GoLytely - Smoking cessation recommended - https://www.cdc.gov/tobacco/about/how-to-quit.html - Undergo the Sitz marker test as instructed to assess bowel motility. - Schedule an appointment with Dr. Davenport for liver assessment. - Avoid alcohol and maintain a balanced diet with adequate fluid intake. - Follow up with primary care provider regarding pain management and general health. - Seek immediate medical assistance for severe pain, changes in bowel urgency, or blood in stools. ]
[2025-09-15] MEDS: Lactated Ringers 1,000 ML 15 ML IV (07:36)
--- NOTE | 2025-09-15 08:25 | OP.PROVAT_ITS ---
09/15/2025 Destini Bustamante [address] [place] [address] Re : Colonoscopy procedure for Radha Jhony Dear Dr. Bustamante This procedure was performed on Monday, September 15, 2025. My impressions and recommendations are as follows: Impressions : - Diverticulosis in the recto-sigmoid colon, in the sigmoid colon and in the descending colon. - Two 5 mm polyps at the splenic flexure, removed with a jumbo cold forceps. Resected and retrieved. - Congested mucosa in the recto-sigmoid colon, in the sigmoid colon, in the ascending colon and in the cecum. Biopsied. - Stool in the sigmoid colon and in the transverse colon. Recommendations : - Discharge patient to home. - Resume previous diet. - Continue present medications. - Await pathology results. - Repeat colonoscopy date to be determined after pending pathology results are reviewed for surveillance. My findings are described in the full procedure note, which is enclosed. If I can be of further assistance, please feel free to contact me at . Sincerely, Shiv Ferro, 09/15/2025 8:24:54 AM This report has been signed electronically.
--- NOTE | 2025-09-15 08:25 | OP.COLON_ITS ---
Patient Name: Radha Booekr Procedure Date: 09/15/2025 7:37 AM Date of : 1945 Age: 79 Procedure: Colonoscopy Indications: Generalized abdominal pain, Clinically significant diarrhea of unexplained origin Providers: Shiv Ferro DO Referring MD: Destini Bustamante Medicines: Monitored Anesthesia Care Patient Profile: This is a 79 year old female. Refer to note in patient chart for documentation of history and physical. Last Colonoscopy: several years ago. Complications: No immediate complications. Procedure: Pre-Anesthesia Assessment: - Prior to the procedure, a History and Physical was performed, and patient medications and allergies were reviewed. The patient is competent. The risks and benefits of the procedure and the sedation options and risks were discussed with the patient. All questions were answered and informed consent was obtained. Patient identification and proposed procedure were verified by the physician in the pre-procedure area. Mental Status Examination: alert and oriented. Airway Examination: normal oropharyngeal airway and neck mobility. Respiratory Examination: clear to auscultation. CV Examination: normal. ASA Grade Assessment: II - A patient with mild systemic disease. After reviewing the risks and benefits, the patient was deemed in satisfactory condition to undergo the procedure. The anesthesia plan was to use monitored anesthesia care (MAC). Immediately prior to administration of medications, the patient was re-assessed for adequacy to receive sedatives. The heart rate, respiratory rate, oxygen saturations, blood pressure, adequacy of pulmonary ventilation, and response to care were monitored throughout the procedure. The physical status of the patient was re-assessed after the procedure. After I obtained informed consent, the scope was passed under direct vision. Throughout the procedure, the patient's blood pressure, pulse, and oxygen saturations were monitored continuously. The colonoscope was introduced through the anus and advanced to the cecum, identified by the ileocecal valve. The colonoscopy was performed without difficulty. The patient tolerated the procedure well. The quality of the bowel preparation was adequate. The ileocecal valve, appendiceal orifice, and rectum were photographed. Scope In: 7:55:41 AM Scope Withdrawal Time 0 hours 11 minutes 8 seconds Scope Out: 8:15:41 AM Total Procedure Duration Time 0 hours 20 minutes 0 seconds Findings: The perianal and digital rectal examinations were normal. Multiple small and large-mouthed diverticula were found in the recto-sigmoid colon, sigmoid colon and descending colon. Two sessile polyps were found in the splenic flexure. The polyps were 5 mm in size. These polyps were removed with a jumbo cold forceps. Resection and retrieval were complete. Verification of patient identification for the specimen was done. Estimated blood loss was minimal. An area of mildly congested mucosa was found in the recto-sigmoid colon, in the sigmoid colon, in the ascending colon and in the cecum. Biopsies were taken with a cold forceps for histology. Verification of patient identification for the specimen was done. Estimated blood loss was minimal. Stool was found in the sigmoid colon and in the transverse colon. Mild rectal prolapse was present. Impression: - Diverticulosis in the recto-sigmoid colon, in the sigmoid colon and in the descending colon. - Two 5 mm polyps at the splenic flexure, removed with a jumbo cold forceps. Resected and retrieved. - Congested mucosa in the recto-sigmoid colon, in the sigmoid colon, in the ascending colon and in the cecum. Biopsied. - Stool in the sigmoid colon and in the transverse colon. Recommendation: - Discharge patient to home. - Resume previous diet. - Continue present medications. - Await pathology results. - Repeat colonoscopy date to be determined after pending pathology results are reviewed for surveillance. Procedure Code(s): --- Professional --- 00428, Colonoscopy, flexible; with biopsy, single or multiple CPT copyright 2021 [employer]. All rights reserved. The codes documented in this report are preliminary and upon sales operations assistant review may be revised to meet current compliance requirements. Shiv Ferro DO 09/15/2025 8:24:54 AM This report has been signed electronically. Number of Addenda: 0 Note Initiated On: 09/15/2025 7:37 AM
--- NOTE | 2025-09-15 08:25 | OP.COLON_ITS ---
Patient Name: Radha Booker Procedure Date: 09/15/2025 7:37 AM Date of : 1945 Age: 79 Procedure: Colonoscopy Indications: Generalized abdominal pain, Clinically significant diarrhea of unexplained origin Providers: Shiv Ferro DO Referring MD: Destini Bustamante Medicines: Monitored Anesthesia Care Patient Profile: This is a 79 year old female. Refer to note in patient chart for documentation of history and physical. Last Colonoscopy: several years ago. Complications: No immediate complications. Procedure: Pre-Anesthesia Assessment: - Prior to the procedure, a History and Physical was performed, and patient medications and allergies were reviewed. The patient is competent. The risks and benefits of the procedure and the sedation options and risks were discussed with the patient. All questions were answered and informed consent was obtained. Patient identification and proposed procedure were verified by the physician in the pre-procedure area. Mental Status Examination: alert and oriented. Airway Examination: normal oropharyngeal airway and neck mobility. Respiratory Examination: clear to auscultation. CV Examination: normal. ASA Grade Assessment: II - A patient with mild systemic disease. After reviewing the risks and benefits, the patient was deemed in satisfactory condition to undergo the procedure. The anesthesia plan was to use monitored anesthesia care (MAC). Immediately prior to administration of medications, the patient was re-assessed for adequacy to receive sedatives. The heart rate, respiratory rate, oxygen saturations, blood pressure, adequacy of pulmonary ventilation, and response to care were monitored throughout the procedure. The physical status of the patient was re-assessed after the procedure. After I obtained informed consent, the scope was passed under direct vision. Throughout the procedure, the patient's blood pressure, pulse, and oxygen saturations were monitored continuously. The colonoscope was introduced through the anus and advanced to the cecum, identified by the ileocecal valve. The colonoscopy was performed without difficulty. The patient tolerated the procedure well. The quality of the bowel preparation was adequate. The ileocecal valve, appendiceal orifice, and rectum were photographed. Scope In: 7:55:41 AM Scope Withdrawal Time 0 hours 11 minutes 8 seconds Scope Out: 8:15:41 AM Total Procedure Duration Time 0 hours 20 minutes 0 seconds Findings: The perianal and digital rectal examinations were normal. Multiple small and large-mouthed diverticula were found in the recto-sigmoid colon, sigmoid colon and descending colon. Two sessile polyps were found in the splenic flexure. The polyps were 5 mm in size. These polyps were removed with a jumbo cold forceps. Resection and retrieval were complete. Verification of patient identification for the specimen was done. Estimated blood loss was minimal. An area of mildly congested mucosa was found in the recto-sigmoid colon, in the sigmoid colon, in the ascending colon and in the cecum. Biopsies were taken with a cold forceps for histology. Verification of patient identification for the specimen was done. Estimated blood loss was minimal. Stool was found in the sigmoid colon and in the transverse colon. Mild rectal prolapse was present. Impression: - Diverticulosis in the recto-sigmoid colon, in the sigmoid colon and in the descending colon. - Two 5 mm polyps at the splenic flexure, removed with a jumbo cold forceps. Resected and retrieved. - Congested mucosa in the recto-sigmoid colon, in the sigmoid colon, in the ascending colon and in the cecum. Biopsied. - Stool in the sigmoid colon and in the transverse colon. Recommendation: - Discharge patient to home. - Resume previous diet. - Continue present medications. - Await pathology results. - Repeat colonoscopy date to be determined after pending pathology results are reviewed for surveillance. Procedure Code(s): --- Professional --- 25913, Colonoscopy, flexible; with biopsy, single or multiple CPT copyright 2021 [employer]. All rights reserved. The codes documented in this report are preliminary and upon grill prep cook review may be revised to meet current compliance requirements. Shiv Ferro DO 09/15/2025 8:24:54 AM This report has been signed electronically. Number of Addenda: 0 Note Initiated On: 09/15/2025 7:37 AM
--- NOTE | 2025-09-15 08:26 | PCM.POST.ANE ---
Anesthesia: Postop Eval I Current Vital Signs Temperature: 97.1 F Pulse Rate: 72 Blood Pressure: 159/64 Respiratory Rate: 16 Pulse Ox: 100 Oxygen Delivery Method: Room Air Assessment Airway patent: Yes Spontaneous unlabored respirations: Yes Mental status: Awake nausea: No Vomiting: No Anesthesia Complication: No Fluid Hydration Crystalloid volume administer (ml): 500 Total IV fluid infused: 500 Progress Note Anesthesia document: Postop Eval 1 completed: Yes
--- NOTE | 2025-09-15 12:07 | PCM.POSTANE2 ---
Anesthesia Postop Eval I Sum Postop Eval Completion status Anesthesia document: Postop Eval 1 completed: Yes Anesthesia Postop Eval I Summary Anesthesia Postop Eval I Summary: Anesthesia Postop Eval I: Assessment Summary Airway patent Yes 09/15/25 08:27 [email or web address] Spontaneous unlabored Yes 09/15/25 08:27 [email or web address] respirations Mental status Awake 09/15/25 08:27 [email or web address] nausea No 09/15/25 08:27 [email or web address] Vomiting No 09/15/25 08:27 [email or web address] Anesthesia Postop Eval I: Fluid Summary Crystalloid volume administer 500 09/15/25 08:27 [email or web address] (ml) Colloids volume administered ( ml) Blood Product volume administered (ml) Total IV fluid infused 500 09/15/25 08:27 [email or web address] Anesthesia Postop Eval I: Summary Notes Anesthesia Complication No 09/15/25 08:27 [email or web address] Anesthesia Complication Comment: Post-operative progress note Anesthesia: Postop Eval II Evaluation Mental status: Awake and Calm Pain Level: 1 nausea: No Vomiting: No Complications Anesthesia Complication: No
== END 2025-09-15 09:33 | disposition home or self-care (01) ==
LOC: EN 06:26 → AC 06:27
PROVIDERS: PCP Internal Medicine; Referring Provider Internal Medicine; Visit Provider Internal Medicine Gastroenterology
PROC: 0DJD8ZZ Inspection of Lower Intestinal Tract, Via Natural or Artificial Opening Endoscopic (ICD-10-PCS; CPT 45378; principal; 2025-09-15 07:25)
DX: R10.9 Unspecified abdominal pain (principal); J44.9 Chronic obstructive pulmonary disease, unspecified; Z79.51 Long term (current) use of inhaled steroids; E78.00 Pure hypercholesterolemia, unspecified; K59.01 Slow transit constipation; Z79.82 Long term (current) use of aspirin; K63.5 Polyp of colon; K57.30 Diverticulosis of large intestine without perforation or abscess without bleeding; I10 Essential (primary) hypertension; K21.9 Gastro-esophageal reflux disease without esophagitis; R16.2 Hepatomegaly with splenomegaly, not elsewhere classified; Z85.820 Personal history of malignant melanoma of skin; Z79.899 Other long term (current) drug therapy; Z96.60 Presence of unspecified orthopedic joint implant; Z98.41 Cataract extraction status, right eye; Z98.42 Cataract extraction status, left eye; Z90.49 Acquired absence of other specified parts of digestive tract; Z90.710 Acquired absence of both cervix and uterus; F17.210 Nicotine dependence, cigarettes, uncomplicated; K52.9 Noninfective gastroenteritis and colitis, unspecified; K63.89 Other specified diseases of intestine
CPT/HCPCS: 45380; 88305; J2405

== ENCOUNTER → 2025-09-16 | Outpatient (CLI) | payer MEDICARE, SELFPAY | END | disposition home or self-care (01) | LOC: PSN 13:53 | PROVIDERS: PCP Internal Medicine; Referring Provider Student in an Organized Health Care Education/Training Program; Visit Provider Student in an Organized Health Care Education/Training Program | DX: Z86.79 Personal history of other diseases of the circulatory system (principal) | CPT/HCPCS: 93225; 93226 ==

== ENCOUNTER 2025-10-18 12:24 | Emergency (ER) | payer MEDICARE, SELFPAY ==
[2025-10-18 12:25] VITALS: BP 177/47; PULSE 79; RESP 18; TEMP 37.1; O2SAT 97
[2025-10-18 12:27] VITALS: BMI 24.0
--- NOTE | 2025-10-18 13:24 | VDLE_ITS ---
Reason For Study Reason For Study: Left leg pain RIGHT LEFT CFV is compressible, spontaneous, phasic, competent GSV is normal. and demonstrates normal augmentation. CFV is compressible, spontaneous, phasic, competent, Procedure and demonstrates normal augmentation. This is a venous duplex using B-mode, color flow and FV is compressible, spontaneous, phasic, competent spectral Doppler. and demonstrates normal augmentation. Exam performed portable in ED. POP V is compressible, spontaneous, phasic, competent A preliminary report was called and/or faxed to and demonstrates normal augmentation. Jorge. T/P Trunk is compressible. PTV is compressible. LT PerV is compressible. VL/Venous Duplex US, Unilateral Interpretation Summary Deep veins of the left lower extremity are patent and compressible segmentally. There is no evidence of left lower extremity deep vein thrombosis. Valvular competence appears intact within the p roximal deep venous system on the left . The left great saphenous vein appears patent and compressible segmentally. The right common femoral vein is patent and compressible . Ordering Physician: Rufino Patel Referring Physician: Destini Bustamante Performed By: Isatu Zarate RVT
--- NOTE | 2025-10-18 13:34 | EX.ED.DYSGE1 ---
HPI History of Present Illness Chief Complaint: Lower Extremity Injury Narrative Narrative: Chief complaint and HPI: 79-year-old female with past medical history of rheumatoid arthritis, Sjogren's disease, HTN, COPD presents for evaluation of left knee pain. Patient states approximately 7 weeks ago she fell in the morning in which she landed on her left knee. States she followed up with Dr. Irene in the office in which she has a knee fracture. She states that she was not placed in a splint or brace. Patient states she ambulates with a walker. States she is due to have surgery with Dr. Irene on November 02. Patient states since the injury she has had left knee pain, swelling to the knee as well as left lower extremity, mild erythema to the left lower extremity/knee as well as mild warmth. Patient states yesterday she was trying to get out of a chair in which she thinks she may have twisted her knee. States since then she has had increased pain on the lateral aspect of the knee. She denies any fever, chills, nausea, vomiting, numbness/tingling. Review of systems: See HPI Medications: As listed on the chart Allergies: As listed on the chart PFSH: Per chart Vital signs: As listed on the chart. Reviewed. Physical exam: Gen: A&O x3, NAD Eyes: No sclera icterus, conjunctiva clear ENT: Moist mucous membranes CV: Regular rate Resp: Nonlabored respirations Musc: Limited active range of motion of the left lower extremity secondary to knee pain, she has mild swelling and warmth to the left knee-no erythema, left knee is tender to palpation diffusely, no knee instability, full passive range of motion, +1 pitting edema to the left calf and foot with mild erythema/warmth, DP/PT pulses +2 bilaterally, compartments soft. Patient states these findings are not new with the swelling, warmth, erythema. Neuro: Alert, oriented, grossly intact, sensation intact Psych: Cooperative, appropriate mood and affect [facility] Medical History (Updated 10/18/25 @ 15:[address] Rufino Patel DO) History of steroid therapy Cirrhosis History of IBS Gastric reflux Smoker Leg cramps History of edema Cardiology follow-up encounter [place] (obstructive sleep apnea) Wears glasses Post-menopausal Cancer History of steroid therapy Ambulates with cane Rheumatoid arthritis Arthritis Kidney stones High cholesterol Back pain Injury of back Injury of head and neck Smoker Hx of Sjogren's disease Scoliosis History of pain when walking History of stress test Hx of melanoma of skin History of irregular heartbeat Hx of temporomandibular joint syndrome 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 Sjogrens syndrome Sicca syndrome with keratoconjunctivitis Positive MILIND (antinuclear antibody) Pancreatitis Obstructive chronic bronchitis with exacerbation Narcolepsy Migraine, unspecified, intractable, without status migrainosus Inflammatory polyarthropathy Hiatal hernia Fibromyalgia Depression Degenerative disc disease Anemia Adult osteomalacia GERD (gastroesophageal reflux disease) Osteoporosis Lupus HTN (hypertension) COPD (chronic obstructive pulmonary disease) Home Medications Medication Instructions Recorded Last Taken Type fluticasone fur. 100 mcg-umeclid 1 inh inhalation QHS 08/30/23 10/17/25 History 62.5 mcg-vilant 25 mcg inhalat.powder (Trelegy Ellipta) losartan 50 mg tablet (Cozaar) 50 mg PO DAILY BP 08/30/23 10/17/25 History gabapentin 300 mg capsule 300 mg PO Q4H 06/18/25 10/18/25 History omeprazole 40 mg capsule,delayed 40 mg PO BID 06/18/25 10/17/25 History release sucralfate 1 gram tablet 1 g PO QACHS PRN STOMACH 07/07/25 10/18/25 History aspirin 81 mg tablet 81 mg PO QDAY 08/16/25 10/17/25 History acetaminophen 500 mg capsule 1,000 mg PO Q6H PRN pain 10/18/25 10/17/25 History cholecalciferol (vitamin D3) 25 25 mcg PO DAILY 10/18/25 10/17/25 History mcg (1,000 unit) capsule (Vitamin D3) tramadol 50 mg tablet 50 mg PO Q6H PRN PRN pain 10/18/25 10/18/25 History Allergy/AdvReac Type Severity Reaction Status Date / Time simvastatin Allergy Severe Pain in Verified 10/18/25 12: joints milk Allergy Unknown Unknown Verified 10/18/25 12:25 morphine Allergy Swelling Verified 10/18/25 12:25 Penicillins Allergy unknown, Verified 10/18/25 12:25 as a kid meperidine (From Demerol) AdvReac Vomiting Verified 10/18/25 12:25 Family History Son Allergies Lupus Daughter Allergies Lupus Mother Asthma COPD (chronic obstructive pulmonary disease) CAD (coronary artery disease) Diabetes Genitourinary disease Heart disease Hypertension Father Migraine Diabetes Hypertension Sister Migraine Hypertension CVA (cerebral vascular accident) Surgical History Hx of hand surgery Hx of surgical procedure H/O vascular surgery History of arthroplasty History of nasal septoplasty History of bilateral cataract extraction History of cardiac catheterization Hx of appendectomy Hx of hysterectomy Hx of tonsillectomy Hx of joint replacement Hx of hernia repair Hx of esophagogastroduodenoscopy Hx of colonoscopy Hx of cholecystectomy Social History Smoking Status: Current every day smoker tobacco type: cigarettes alcohol intake: never substance use type: does not use EXAM Physical Exam Const Vital Signs: 10/18/25 12:25 10/18/25 14:24 10/18/25 15:28 Temperature 98.7 F 97.8 F Temperature Source Oral Pulse Rate 79 80 82 Respiratory Rate 18 16 14 Blood Pressure 177/47 H 122/64 H 122/65 H Blood Pressure Mean 90 83 84 Pulse Ox 97 100 99 Oxygen Delivery Method Room Air Room Air MDM MDM MDM Narrative Medical decision making narrative: 79-year-old female with past medical history of rheumatoid arthritis, Sjogren's disease, HTN, COPD presents for evaluation of left knee pain. Patient states approximately 7 weeks ago she fell in the morning in which she landed on her left knee. States she followed up with Dr. Irene in the office in which she has a knee fracture. She states that she was not placed in a splint or brace. Patient states she ambulates with a walker. States she is due to have surgery with Dr. Irene on November 02. Patient states since the injury she has had left knee pain, swelling to the knee as well as left lower extremity, mild erythema to the left lower extremity/knee as well as mild warmth. Patient states yesterday she was trying to get out of a chair in which she thinks she may have twisted her knee. States since then she has had increased pain on the lateral aspect of the knee. See physical exam findings. Differential diagnosis includes but is not limited to sprain, fracture, DVT. Suspect less likely septic arthritis given that her swelling, mild erythema, and warmth has been present for several weeks. Erythema is not consistent with cellulitis. Laboratory workup ordered including x-ray of the knee. On chart review, and unable to find previous imaging of the knee. Patient has morphine listed as an allergy. She states that she has had Percocet in the past without issues. Oxycodone ordered. CBC without leukocytosis. Patient has baseline anemia of 10.8. Platelets unremarkable. BMP unremarkable. ESR unremarkable. CRP elevated at 7.85. Venous duplex ultrasound negative for DVT per crime lab technician. X-ray of the knee without fracture or dislocation. Small effusion. Radiology in agreement. Degenerative changes. Given patient follows with Dr. Irene, he was consulted and patient was discussed. Dr. Irene reviewed the x-ray. Given that swelling, erythema, warmth is not new and patient only has mildly elevated CRP low suspicion for septic arthritis and recommended no arthrocentesis especially since patient is going to surgery in November and we do not want to cause an infection. Recommended patient continue her home pain regiment. Follow-up in his office. Patient updated of all results confirmed understanding of the plan. She ambulated in the emergency department with her walker without difficulty. Patient stable to discharge home. Impression: 1. Acute on chronic left knee pain 2. Chronic anemia Lab Data Labs: Laboratory Results - last 24 hr 10/18/25 13:34 WBC 8.6 RBC 4.06 L Hgb 10.8 L Hct 34.6 L MCV 85.2 MCH 26.6 L MCHC 31.2 L RDW Std Deviation 44.5 H RDW Coeff of Levi 14.4 Plt Count 193 MPV 10.0 Immature Gran % (Auto) 0.100 Neut % (Auto) 35.8 L Lymph % (Auto) 49.3 H Ulster % (Auto) 4.9 Eos % (Auto) 9.1 H Baso % (Auto) 0.8 Absolute Neuts (auto) 3.1 Absolute Lymphs (auto) 4.22 Nucleated RBC % 0 Reactive Lymphocytes 3+ ESR 19 Sodium 137 Potassium 4.0 Chloride 103 Carbon Dioxide 22.3 Anion Gap 12 BUN 13 Creatinine 0.47 L Estim Creat Clear Calc 46.58 L Est GFR (MDRD) Non-Af 98 BUN/Creatinine Ratio 27.1 H Glucose 79 Calcium 9.0 C-React Prot Ext Range 7.85 H Radiography Diagnostic Testing: Clinical Impression(s) from Imaging Studies Knee X-Ray 10/18/25 14:10 IMPRESSION: Degenerative changes. Small joint effusion. No acute fracture is seen. Reading Location: [facility] Discharge Plan Triage Chief Complaint: Lower Extremity Injury ED Provider: Rufino Patel Dx/Rx/DC Orders Clinical Impression: Knee pain, left Instructions: ED Chronic Pain Prescriptions: No Action losartan [Cozaar] 50 mg tablet 50 mg PO DAILY Trelegy Ellipta 100-62.5-25 mcg blister with device 1 inh inhalation QHS Patient Comments: INHALE 1 PUFF ONCE DAILY aspirin 81 mg tablet 81 mg PO QDAY gabapentin 300 mg capsule 300 mg PO Q4H omeprazole 40 mg capsule,delayed release(DR/EC) 40 mg PO BID sucralfate 1 gram tablet 1 g PO QACHS PRN (Reason: STOMACH) tramadol 50 mg tablet 50 mg PO Q6H PRN PRN (Reason: pain) acetaminophen 500 mg capsule 1,000 mg PO Q6H PRN (Reason: pain) cholecalciferol (vitamin D3) [Vitamin D3] 25 mcg (1,000 unit) capsule 25 mcg PO DAILY Primary Care Provider: Destini Bustamante Referrals: Destini Bustamante MD [Primary Care Provider, Internal Medicine] - 3-5 Days Wolf Irene MD [Med Staff - Active Staff, Orthopedics] - 3-5 Days Activity Restrictions/Additional Instructions: Continue your home medication. Follow-up with Dr. Irene. Return back to ED symptoms change or worsen. Print Language: Sinhala Disposition Disposition: Home, Self Care
[2025-10-18 13:43] LABS: Differential Indicated SCAN CRITERIA MET; Hematocrit 34.6 % (37-47); Hemoglobin 10.8 g/dL (12.0-15.0); Immature Granulocytes Count 0.010 X10^3/uL (0.0-0.0); Mean Corp Hgb Conc 31.2 g/dL (32-36); Mean Corpuscular Volume 85.2 fL (81-99); Mean Platelet Vol. 10.0 fl (6.2-12.0); NRBC Flagged by Analyzer 0 % (0-5); POSITIVE MORPHOLOGY YES; Platelet Count 193 K/mm3 (150-450); RBC Distribution Width CV 14.4 % (11.6-14.6); RBC Distribution Width SD 44.5 fl (35.1-43.9); Red Blood Count 4.06 M/mm3 (4.2-5.4); White Blood Count 8.6 K/mm3 (4.4-11.0)
[2025-10-18 14:03] LABS: CRP 7.85 mg/L (0.0-3.0)
[2025-10-18 14:04] LABS: Anion Gap 12 (5-15); BUN 13 mg/dL (4-19); BUN/Creat Ratio 27.1 RATIO (10-20); Calcium,Total 9.0 mg/dL (7.6-11.0); Carbon Dioxide 22.3 mmol/L (21.0-32.0); Chloride 103 mmol/L (98-108); Estimated Creatinine Clearance 46.58 ml/min (50-250); Glucose 79 mg/dL (70-99); Potassium 4.0 mmol/L (3.3-5.1)
--- NOTE | 2025-10-18 14:10 | RAD_ITS ---
PROCEDURE: KNEE 4 OR MORE VIEWS 10/18/2025 REASON FOR EXAM: PAIN, RECENT FRACTURE TECHNIQUE: Procedure Code: RADKN Modality: DX Procedure: KNEE 4 OR MORE VIEWS Laterality: Left knee. COMPARISON: None FINDINGS: Bones: Demineralization of the visualized structures. No fracture is seen. Joints: Mild degree of degenerative changes of the medial compartment of the knee joint. Moderate degree of degenerative changes of patellofemoral joint. Effusion: Small joint effusion. Soft tissues: Mild soft tissue swelling. Other: RAD/Knee 4 or More Views IMPRESSION: Degenerative changes. Small joint effusion. No acute fracture is seen. Reading Location: [id number]
[2025-10-18 14:17] LABS: Reactive Lymphocyte 3+
[2025-10-18 14:24] VITALS: BP 122/64; PULSE 80; RESP 16; O2SAT 100
[2025-10-18 15:28] VITALS: BP 122/65; PULSE 82; RESP 14; TEMP 36.6; O2SAT 99
== END 2025-10-18 15:50 | disposition home or self-care (01) ==
PROVIDERS: Emergency Provider Surgery; PCP Internal Medicine; Visit Provider Surgery
DX: M25.562 Pain in left knee (principal); M06.9 Rheumatoid arthritis, unspecified; K74.60 Unspecified cirrhosis of liver; J44.9 Chronic obstructive pulmonary disease, unspecified; D64.9 Anemia, unspecified; G89.29 Other chronic pain; R60.0 Localized edema; M35.00 Sjogren syndrome, unspecified; I10 Essential (primary) hypertension; K21.9 Gastro-esophageal reflux disease without esophagitis; M79.7 Fibromyalgia; G47.33 Obstructive sleep apnea (adult) (pediatric); M81.0 Age-related osteoporosis without current pathological fracture; Z79.51 Long term (current) use of inhaled steroids; Z79.82 Long term (current) use of aspirin; Z79.899 Other long term (current) drug therapy; F17.210 Nicotine dependence, cigarettes, uncomplicated
CPT/HCPCS: 73564; 80048; 85025; 85652; 86140; 93971; 99282; A4216